=== PATIENT | female | born 1960 | race Caucasian/White ===

== ENCOUNTER → 2016-09-05 | Outpatient (REF) | payer OTHER ==
[~2016-09-05] MED LIST: /DULO30CA OR; /QUET10TA PO; ALBU17IN INH; ALPR1TAB3 OR; ALPR1TAB3 PO; AMBI5TAB OR; AMOX875T PO; ANAS1TAB PO; ARIM1TAB4 PO; ASTE0.15; BACT800T5 PO; BENA25CA2 PO; CETI10TA PO; CLAR5TAB7 PO; CLON1TAB OR; CLON1TAB PO; COMPAZINE; CYMB60CA3 PO; DICY1CAP8 PO; DIPH2.5T14 PO; DULO30CA PO; DULOXETINE PO; GLIM1TAB PO; GLIM2TAB PO; GLYB5TAB PO; GUAI1TAB PO; HYDR-3719 PO; HYDROCODONE APAP PO; HYOS0.1248 PO; KLON1TAB PO; LEVA750T PO; LEXA5TAB13 PO; LIDO5DIS36 TD; LISI-542 PO; LISI10TA4 OR; LISI10TA4 PO; LOMO2.5T PO; LYRI150C OR; LYRI150C PO; METF500T PO; METF500T4 PO; METH750T PO; METOCARBAMOL PO; MIRA3350 PO; MONT10TA2 PO; MUCI600T34 PO; MYLI40DR OR; NAPR500T81 OR; NAPR550T PO; NAPR550T3 PO; NAPRPOW4 PO; OMEP20TA7 OR; OMEP40CA2 PO; OXYB10TA PO; OXYC-517 PO; OXYC1TAB23 PO; OYSCTAB3 PO; PERC7.5T12 PO; PERCOCET PO; PRIL40CA PO; QUET1TAB8 PO; ROBA500T PO; SEROQUIL PO; SIMV20TA2 OR; SIMV20TA2 PO; SKEL-29 PO; TOLT1CAP PO; TYLE650T25 PO; VICO5TAB; VICODINES TAB OR; VIT D 2000 OR; VITA50003 PO; XANA1TAB2 OR; XANA1TAB2 PO; ZEST1TAB6 PO; ZOCO80TA PO; ZOLP10TA2 PO; [UNRECOGNIZED DRUG - CODE] PO; [UNRECOGNIZED DRUG - CODE] PO; [UNRECOGNIZED DRUG - OTHER] PO; [UNRECOGNIZED DRUG - REMARK] INJ
[2016-09-05 19:17] LABS: YEAST LIKE CELL URINE AUTO SMALL
[2016-09-05 19:23] LABS: MEAN CORPUSCULAR HEMOGLOBIN 23.5 pg (27.0-33.0); MEAN CORPUSCULAR HGB CONC 30.6 g/dl (32.0-36.5); RED CELL DISTRIBUTION WIDTH 15.6 % (11.5-14.5)
[2016-09-05 20:08] LABS: ALBUMIN 3.7 GM/DL (3.2-5.2); ALBUMIN/GLOBULIN RATIO 1.19 (1.00-1.93); ALKALINE PHOSPHATASE 80 U/L (45-117); ALT/SGPT 37 U/L (12-78); ANION GAP 11 MEQ/L (8-16); AST/SGOT 46 U/L (15-37); BILIRUBIN,TOTAL 0.2 MG/DL (0.2-1.0); BLOOD UREA NITROGEN 8 MG/DL (7-18); CALCIUM LEVEL 8.7 MG/DL (8.5-10.1); CARBON DIOXIDE LEVEL 25 MEQ/L (21-32); CHLORIDE LEVEL 105 MEQ/L (98-107); CREATININE FOR GFR 0.54 MG/DL (0.55-1.02); GLOMERULAR FILTRATION RATE > 60.0 (>51); GLUCOSE, FASTING 195 MG/DL (70-105); POTASSIUM SERUM 4.4 MEQ/L (3.5-5.1); SODIUM LEVEL 141 MEQ/L (136-145); TOTAL PROTEIN 6.8 GM/DL (6.4-8.2)
== END ==
LOC: M LAB REF 18:27
PROVIDERS: ATTEND Nurse Practitioner Family
DX: E11.9 Type 2 diabetes mellitus without complications (principal); R53.81 Other malaise; D72.829 Elevated white blood cell count, unspecified

== ENCOUNTER → 2016-09-18 | Outpatient (CLI) | payer OTHER ==
--- NOTE | 2016-09-19 07:28 | REP ---
RIGHT HIP SERIES: 09/18/2016. Clinical history: Back pain and right hip pain. Comparison: AP pelvis 10/22/2012. Findings: The two-view show the hip joint space preserved without narrowing. There is a tiny rim osteophyte at the acetabular roof. No sclerosis, subchondral cystic change in the acetabular roof nor evidence of AVN. No fracture or focal lesion in the hip, acetabulum, pubic rami or the adjacent right SI joint. Symphysis pubis intact. Impression: 1. Minimal degenerative change at the right hip without fracture, joint space narrowing, AVN or other acute finding. Signed by Jason Valenzuela MD 09/19/2016 04:23 P
--- NOTE | 2016-09-19 07:29 | REP ---
LUMBAR SPINE COMPLETE: 09/18/2016. Comparison: 01/26/2016. Clinical history: Back pain. Findings: Five view show the disc space at L4-5 and L5-S1 narrowed. Small marginal osteophytes. There is no spondylolysis or spondylolisthesis. Disc space at L2-3 and L3-4 narrowed less than those below. Discogenic endplate changes and marginal osteophytes at L1-2 present. Some minor anterior wedging of T12 is stable. Bilateral oblique views show facet arthropathy at L4-5 and L5-S1. AP view show pedicles, spinous and transverse processes intact. There are right upper quadrant surgical clips from prior cholecystectomy and there are coarse calcifications in the right upper quadrant outside of the renal shadow and paramedian. These are stable. Impression: 1. Degenerative disc changes diffusely throughout the lumbar and lower thoracic spine and facet arthritis greatest L4-5 and L5-S1. No compression deformity, spondylolysis or other acute finding. Signed by Jason Valenzuela MD 09/19/2016 04:24 P
--- NOTE | 2016-09-19 09:05 | REP ---
MR LUMBAR SPINE WITHOUT CONTRAST: HISTORY: Back pain. COMPARISON: 11/24/2015 Decreased signal intensity on T2-weighted images is present in the lumbar intervertebral discs. The discs are decreased in height. These findings are consistent with disc degeneration. A diffuse disc bulge is present at the L1-2 level. There is hypertrophy of the ligamenta flava and posterior articulating facets. These findings produce minimal central canal stenosis. The L1 nerves exit the neural foramina without compression. A diffuse disc bulge is present at the L2-3 level. There is hypertrophy of the ligamenta flava and posterior articulating facets. These findings produce minimal central canal stenosis. The L2 nerves exit the neural foramina without compression. A diffuse disc bulge is present at the L3-4 level. The previously noted disc protrusion is not seen. There is minimal compression of the thecal sac. There is hypertrophy of the posterior articulating facets. The L3 nerves exit the neural foramina without compression. A diffuse disc bulge and small right paracentral disc extrusion are present at the L4-5 level. There is inferior migration of disc material. There is minimal compression of the thecal sac and right L5 nerve as it exits the thecal sac and in the right L5 lateral recess. There is hypertrophy of the posterior articulating facets. The L4 nerves exit the neural foramina without compression. A diffuse disc bulge and small disc extrusion central and eccentric to the right are present at the L5-S1 level. There is minimal compression of the thecal sac and right S1 nerve as it exits the thecal sac. There is hypertrophy of the posterior articulating facets. There is compression of the right L5 nerve in the neural foramen. The left L5 nerve exits the neural foramen without compression. The conus medullaris is normal in appearance terminating at the level of the L1 vertebral body. Increased signal intensity on T2-weighted images is present in the inferior endplate of the L1 vertebral body. This represents degenerative change. IMPRESSION: 1. Minimal central canal stenosis at the L1-2 and L2-3 levels secondary to disc bulge ligamentous and facet hypertrophy. 2. Diffuse disc bulge at the L3-4 level with minimal thecal sac compression. The previously noted disc protrusion is not seen. 3. Diffuse disc bulge and small right paracentral disc extrusion at the L4-5 level with minimal compression of the thecal sac and right L5 nerve as it exits the thecal sac and in the right L5 lateral recess. 4. Diffuse disc bulge and small disc extrusion at the L5-S1 level with minimal compression of the thecal sac and right S1 nerve as it exits the thecal sac. There is compression of the right L5 nerve in the neural foramen. The right L5 nerve compression is a new finding. Signed by Tesfaye Peterson MD 09/19/2016 09:22 A
== END ==
LOC: M RAD 17:20
PROVIDERS: ATTEND Nurse Practitioner Family
DX: M54.30 Sciatica, unspecified side (principal); M25.559 Pain in unspecified hip

== ENCOUNTER → 2016-11-06 | Outpatient (REF) | payer OTHER ==
[2016-11-06 18:35] LABS: YEAST LIKE CELL URINE AUTO SMALL
== END ==
LOC: M SMT 16:55
PROVIDERS: ATTEND Urology
DX: N39.41 Urge incontinence (principal)

== ENCOUNTER → 2016-11-11 | Outpatient (REF) | payer OTHER, MEDICAID ==
[2016-11-11 13:20] LABS: ANION GAP 9 MEQ/L (8-16); BLOOD UREA NITROGEN 9 MG/DL (7-18); CARBON DIOXIDE LEVEL 28 MEQ/L (21-32); CHLORIDE LEVEL 101 MEQ/L (98-107); CREATININE FOR GFR 0.67 MG/DL (0.55-1.02); GLOMERULAR FILTRATION RATE > 60.0 (>51); GLUCOSE, FASTING 156 MG/DL (70-105); POTASSIUM SERUM 4.6 MEQ/L (3.5-5.1); SODIUM LEVEL 138 MEQ/L (136-145)
== END ==
LOC: M LAB REF 12:31
PROVIDERS: ATTEND Nurse Practitioner Family
DX: E11.9 Type 2 diabetes mellitus without complications (principal)

== ENCOUNTER → 2016-12-03 | Outpatient (REF) | payer OTHER | LOC: M LAB REF 17:02 | PROVIDERS: ATTEND Internal Medicine Medical Oncology | DX: C50.111 Malignant neoplasm of central portion of right female breast (principal) ==

== ENCOUNTER 2016-12-05 14:29 | Outpatient (RCR) | payer OTHER | END 2016-12-18 | LOC: M PT 14:29 | PROVIDERS: ATTEND Nurse Practitioner Family | DX: Z51.89 Encounter for other specified aftercare (principal); M54.5 Low back pain ==

== ENCOUNTER 2016-12-29 02:39 | Emergency (ER) | payer OTHER ==
[~2016-12-29] VITALS: Ht 167.6 cm; Wt 100.7 kg
[2016-12-29] MEDS ORDERED: LISI10TA4 PO (03:15)
[2016-12-29] MEDS ORDERED: CITA10TA5 PO (03:15)
[2016-12-29] MEDS ORDERED: ALOG25TA PO (03:16)
[2016-12-29] MEDS ORDERED: KETOROLAC TROMETHAMINE 10 MG TAB PO ONE (04:15)
[2016-12-29] MEDS ORDERED: OXYC1TAB23 PO (06:16)
[2016-12-29 06:23] VITALS: BP 106/62
--- NOTE | 2016-12-29 09:15 | REP ---
PA and lateral chest: Comparison is 07/10/2016. The lung plasencia are clear. There is no pneumothorax, hemothorax or pulmonary contusion. Cardiac size is normal. The sarwat, mediastinum, and bony thorax are unremarkable. Impression: Negative PA and lateral chest. Signed by Deven Pelletier MD 12/29/2016 09:07 A
--- NOTE | 2016-12-29 09:17 | REP ---
Right rib series and PA chest. Right ribs four views: There is no rib fracture or other rib abnormality. PA chest: There is no pneumothorax, hemothorax or pulmonary contusion. Lung plasencia are clear. Cardiac size is normal. The sarwat, mediastinum, and bony thorax are unremarkable. Impression: Negative PA chest. Signed by Deven Pelletier MD 12/29/2016 09:08 A
--- NOTE | 2016-12-29 09:17 | REP ---
Right shoulder three views: Mineralization and joint spaces are normal. There is no fracture or dislocation. There are no calcifications or foreign bodies. Impression: Negative right shoulder. Signed by Deven Peleltier MD 12/29/2016 09:09 A
== END 2016-12-29 06:27 | disposition home or self-care (01) ==
LOC: M ED 03:45
DX: S20.229A Contusion of unspecified back wall of thorax, initial encounter (principal); W08.XXXA Fall from other furniture, initial encounter; Y92.9 Unspecified place or not applicable; Y93.89 Activity, other specified; Y99.9 Unspecified external cause status; Z85.3 Personal history of malignant neoplasm of breast; Z92.3 Personal history of irradiation; Z92.21 Personal history of antineoplastic chemotherapy; E11.9 Type 2 diabetes mellitus without complications; I10 Essential (primary) hypertension; F41.9 Anxiety disorder, unspecified; F32.9 Major depressive disorder, single episode, unspecified; E78.5 Hyperlipidemia, unspecified; K21.9 Gastro-esophageal reflux disease without esophagitis; K58.9 Irritable bowel syndrome, unspecified; F17.200 Nicotine dependence, unspecified, uncomplicated; Z79.899 Other long term (current) drug therapy; Z88.8 Allergy status to other drugs, medicaments and biological substances

== ENCOUNTER 2017-01-02 13:45 | Outpatient (RCR) | payer OTHER ==
[~2017-01-02 13:45] MED LIST changes: +ALOG25TA PO; +CITA10TA5 PO; +GLYB1TAB67 PO; -GLYB5TAB PO; -LEVA750T PO; +LEVA750T7 PO; -LIDO5DIS36 TD; +LIDO5DIS41 TD; -MUCI600T34 PO; +MUCI600T37 PO; +NAPR550T22 PO; -NAPR550T3 PO; -SKEL-29 PO; +SKEL800T97 PO; +VITA1CAP40 PO; -VITA50003 PO
== END 2017-01-17 | disposition home or self-care (01) ==
LOC: M PT 13:45
PROVIDERS: ATTEND Nurse Practitioner Family
DX: Z51.89 Encounter for other specified aftercare (principal); M54.30 Sciatica, unspecified side

== ENCOUNTER → 2017-02-19 | Outpatient (REF) | payer OTHER ==
[~2017-02-19] MED LIST changes: +AMBI5TAB PO; +DOK100TA PO; +HYDR-643 PO; +MYRB50TA PO; +OXYC10TA12 PO; +REGL10TA6 PO; +SENE8.6T PO
[2017-02-19 20:16] LABS: ALBUMIN 3.6 GM/DL (3.2-5.2); ALBUMIN/GLOBULIN RATIO 1.16 (1.00-1.93); ALKALINE PHOSPHATASE 84 U/L (45-117); ALT/SGPT 28 U/L (12-78); ANION GAP 12 MEQ/L (8-16); AST/SGOT 24 U/L (15-37); BILIRUBIN,TOTAL 0.2 MG/DL (0.2-1.0); BLOOD UREA NITROGEN 7 MG/DL (7-18); CALCIUM LEVEL 9.1 MG/DL (8.5-10.1); CARBON DIOXIDE LEVEL 24 MEQ/L (21-32); CHLORIDE LEVEL 106 MEQ/L (98-107); CREATININE FOR GFR 0.65 MG/DL (0.55-1.02); GLOMERULAR FILTRATION RATE > 60.0 (>51); GLUCOSE, FASTING 186 MG/DL (70-105); POTASSIUM SERUM 4.5 MEQ/L (3.5-5.1); SODIUM LEVEL 142 MEQ/L (136-145); TOTAL PROTEIN 6.7 GM/DL (6.4-8.2)
== END ==
LOC: M LAB REF 16:31
PROVIDERS: ATTEND Nurse Practitioner Family
DX: E11.9 Type 2 diabetes mellitus without complications (principal)

== ENCOUNTER 2017-03-23 20:01 | Emergency (ER) | payer OTHER ==
[~2017-03-23] VITALS: Ht 167.6 cm; Wt 100.9 kg
[~2017-03-23 20:01] MED LIST changes: -AMBI5TAB PO; -DOK100TA PO; -HYDR-643 PO; -MYRB50TA PO; -OXYC10TA12 PO; -REGL10TA6 PO; -SENE8.6T PO
[2017-03-23] MEDS ORDERED: DOK100TA PO (20:30)
[2017-03-23] MEDS ORDERED: AMBI5TAB PO (20:30)
[2017-03-23] MEDS ORDERED: CETI10TA PO (20:30)
[2017-03-23] MEDS ORDERED: OXYC10TA12 PO (20:30)
[2017-03-23] MEDS ORDERED: MYRB50TA PO (20:30)
[2017-03-23] MEDS ORDERED: SENE8.6T PO (20:30)
[2017-03-23] MEDS ORDERED: LYRI150C PO (20:30)
[2017-03-23] MEDS ORDERED: HYDR-643 PO (20:30)
[2017-03-23] MEDS ORDERED: diphenhydrAMINE INJ 50MG/ML VIAL (J1200) IV STA (21:16)
[2017-03-23] MEDS ORDERED: LORazepam 2 MG/ML VIAL (J2060) IV STA (21:16)
[2017-03-23] MEDS ORDERED: NS 1,000 ML IV ONE (21:30)
[2017-03-23] MEDS ORDERED: METOCLOPRAMIDE INJ 10MG/2ML VIAL (J2765) IV ONE (21:30)
[2017-03-23 22:16] LABS: BASO # 0.1 K/mm3 (0.0-0.2); BASO % 1.1 % (0.0-1.0); EOS # 0.4 K/mm3 (0.0-0.50); EOS % 3.9 % (0.0-3.0); LARGE UNSTAINED CELL # 0.2 K/mm3 (0.0-0.4); LARGE UNSTAINED CELL % 2.3 % (0.0-4.0); LYMPH % 40.7 % (24.0-44.0); MEAN CORPUSCULAR HEMOGLOBIN 25.9 pg (27.0-33.0); MEAN CORPUSCULAR HGB CONC 33.2 g/dl (32.0-36.5); MONO # 0.4 K/mm3 (0.0-0.8); MONO % 4.4 % (0.0-5.0); NEUTROPHILS # 4.7 K/mm3 (1.8-7.7); NEUTROPHILS % 47.6 % (36.0-66.0); PLATELET COUNT, AUTOMATED 386 k/mm3 (150-450); RED CELL DISTRIBUTION WIDTH 16.4 % (11.5-14.5); WHITE BLOOD COUNT 9.8 K/mm3 (4.0-10.0)
[2017-03-23 22:29] LABS: METHADONE URINE NEGATIVE (NEGATIVE)
[2017-03-23 22:35] LABS: ALBUMIN 3.8 GM/DL (3.2-5.2); ALKALINE PHOSPHATASE 89 U/L (45-117); ALT/SGPT 50 U/L (12-78); ANION GAP 9 MEQ/L (8-16); AST/SGOT 39 U/L (15-37); BILIRUBIN,DIRECT < 0.1 MG/DL (0.0-0.2); BILIRUBIN,TOTAL 0.2 MG/DL (0.2-1.0); BLOOD UREA NITROGEN 4 MG/DL (7-18); CALCIUM LEVEL 8.8 MG/DL (8.5-10.1); CARBON DIOXIDE LEVEL 28 MEQ/L (21-32); CHLORIDE LEVEL 103 MEQ/L (98-107); CREATININE FOR GFR 0.67 MG/DL (0.55-1.02); GLOMERULAR FILTRATION RATE > 60.0 (>51); GLUCOSE, FASTING 135 MG/DL (70-105); POTASSIUM SERUM 4.1 MEQ/L (3.5-5.1); SODIUM LEVEL 140 MEQ/L (136-145); TOTAL PROTEIN 7.6 GM/DL (6.4-8.2)
--- NOTE | 2017-03-23 23:20 | REPUSA ---
CT of the head Clinical history: altered mental status. Technique: Multiple axial CT images were obtained through the head without administration of contrast . Findings: The ventricles and sulci are symmetric bilaterally. There is no evidence of acute hemorrhag e or infarct. There is no midline shift, mass effect, or extra-axial fluid collection. The osseous st ructures are unremarkable. The visualized paranasal sinuses and mastoid air cells are clear. Impression: Negative study.
[2017-03-23] MEDS ORDERED: REGL10TA6 PO (23:22)
[2017-03-23 23:38] VITALS: BP 140/76
--- NOTE | 2017-03-24 09:21 | REP ---
Clinical: Chest pain and altered mental status . Comparison: 12/29/2016 . Technique: PA and lateral. Findings: The mediastinum and cardiac silhouette are normal. The lung plasencia are clear and without acute consolidation, effusion, or pneumothorax. The skeletal structures are intact and normal. Impression: 1. No acute cardiopulmonary process. Signed by Karan Monroy MD 03/24/2017 09:13 A
--- NOTE | 2017-03-25 20:44 | ECGEPIP ---
Stationary ECG Study [facility] - ED Test Date: 2017-03-23 Pat Name: CASSANDRA ANAYA Department: Room: - Gender: F Manager Administration: tahira : 1960 Requested By: DORI NORWOOD Order Number: [id number] Reading MD: Nelida Oliver Measurements Intervals [place] Rate: 86 P: 31 NH: 163 QRS: 0 QRSD: 88 T: 26 QT: 372 QTc: 445 Interpretive Statements SINUS RHYTHM SEPTAL MYOCARDIAL INFARCTION, PROBABLY OLD ?OLD INFERIOR INFARCT NSTTW ABNORMALITY DECREASED RATE 07/10/16 Electronically Signed On 03-25-2017 20:44:40 EDT by Nelida Oliver
== END 2017-03-23 23:53 | disposition home or self-care (01) ==
LOC: M ED 20:01
DX: F41.9 Anxiety disorder, unspecified (principal); G62.9 Polyneuropathy, unspecified; M79.7 Fibromyalgia; J44.9 Chronic obstructive pulmonary disease, unspecified; F17.200 Nicotine dependence, unspecified, uncomplicated; Z90.49 Acquired absence of other specified parts of digestive tract; Z79.899 Other long term (current) drug therapy; Z88.8 Allergy status to other drugs, medicaments and biological substances
CPT/HCPCS: 36415; 70450; 71020; 80048; 80076; 80307; 80320; 80329; 81001; 82550; 82553; 84443; 85025; 93000; 93041; 94760; 96374; 96375; 99285; J1200; J2060; J2765

== ENCOUNTER → 2017-06-20 | Outpatient (REF) | payer OTHER ==
[~2017-06-20] MED LIST changes: +AMBI5TAB PO; +DOK100TA PO; +HYDR-643 PO; +MYRB50TA PO; +OXYC10TA12 PO; +REGL10TA6 PO; +SENE8.6T PO
[2017-06-20 12:44] LABS: MEAN CORPUSCULAR HEMOGLOBIN 23.9 pg (27.0-33.0); MEAN CORPUSCULAR HGB CONC 30.8 g/dl (32.0-36.5); MEAN CORPUSCULAR VOLUME 77.5 fl (80.0-96.0); PLATELET COUNT, AUTOMATED 424 10^3/uL (150-450); RED CELL DISTRIBUTION WIDTH 16.8 % (11.5-14.5); WHITE BLOOD COUNT 11.4 10^3/uL (4.0-10.0)
== END ==
LOC: M LABDRAW1 10:14
PROVIDERS: ATTEND Family Medicine
DX: R61 Generalized hyperhidrosis (principal)

== ENCOUNTER 2017-07-20 17:55 | Emergency (ER) | payer OTHER ==
[2017-07-20 18:30] LABS: APPEARANCE, URINE MANUAL CLEAR (CLEAR); COLOR, URINE MANUAL ORANGE (YELLOW); PH,URINE MAN OBSCURED UNITS (5.0 - 7.0); PROTEIN, URINE MANUAL OBSCURED mg/dL (NEGATIVE); SPECIFIC GRAVITY,URINE MANUAL 1.025 (1.002-1.035)
[2017-07-20 18:31] LABS: BILIRUBIN, URINE MANUAL OBSCURED (NEGATIVE); BLOOD URINE MANUAL OBSCURED (NEGATIVE); GLUCOSE, URINE (UA) MANUAL OBSCURED mg/dL (NEGATIVE); KETONE, URINE MANUAL OBSCURED mg/dL (NEGATIVE); LEUKOCYTE ESTERASE, URINE MAN OBSCURED (NEGATIVE); MICROSCOPIC INDICATED? MAN YES (NO); NITRITE, URINE MANUAL OBSCURED (NEGATIVE); UROBILINOGEN, URINE MANUAL OBSCURED mg/dl (NORMAL)
[2017-07-20 18:43] LABS: BACTERIA, URINE SMALL AMOUNT; HYALINE CAST, URINE NONE SEEN /lpf (0-1); MICROSCOPIC EXAM PERFORMED; MUCUS, URINE SMALL AMOUNT (NEGATIVE); SQUAMOUS EPITHELIAL CELL URINE LARGE AMOUNT /hpf (SMALL AMT); WBC, URINE 20-30 /hpf (0-3)
[2017-07-20] MEDS: NS 1,000 ML IV (21:45)
[2017-07-20] MEDS: PHENAZOPYRIDINE 100 MG TAB PO (22:59)
[2017-07-20] MEDS: KETOROLAC 30 MG/ML VIAL (J1885) IV (22:59)
[2017-07-20 23:07] LABS: HEMATOCRIT 41.2 % (36.0-47.0); HEMOGLOBIN 12.8 g/dl (12.0-16.0); MEAN CORPUSCULAR HEMOGLOBIN 23.5 pg (27.0-33.0); MEAN CORPUSCULAR HGB CONC 31.1 g/dl (32.0-36.5); MEAN CORPUSCULAR VOLUME 75.6 fl (80.0-96.0); PLATELET COUNT, AUTOMATED 506 10^3/uL (150-450); RED BLOOD COUNT 5.45 10^6/uL (4.00-5.40); RED CELL DISTRIBUTION WIDTH 17.4 % (11.5-14.5)
[2017-07-20 23:14] LABS: ADD MANUAL DIFFER YES; DIFF SLIDE NUMBER 166; POSITIVE DIFF POS FLAG; WHITE BLOOD COUNT 14.9 10^3/uL (4.0-10.0)
[2017-07-20 23:18] LABS: ALBUMIN 3.8 GM/DL (3.2-5.2); ALBUMIN/GLOBULIN RATIO 0.95 (1.00-1.93); ALKALINE PHOSPHATASE 87 U/L (45-117); ALT/SGPT 23 U/L (12-78); ANION GAP 4 MEQ/L (8-16); AST/SGOT 21 U/L (7-37); BILIRUBIN,DIRECT < 0.1 MG/DL (0.0-0.2); BILIRUBIN,TOTAL 0.2 MG/DL (0.2-1.0); BLOOD UREA NITROGEN 8 MG/DL (7-18); CALCIUM LEVEL 9.2 MG/DL (8.5-10.1); CARBON DIOXIDE LEVEL 33 MEQ/L (21-32); CHLORIDE LEVEL 100 MEQ/L (98-107); CREATININE FOR GFR 0.64 MG/DL (0.55-1.02); GLOMERULAR FILTRATION RATE > 60.0 (>51); GLUCOSE, FASTING 112 MG/DL (70-105); POTASSIUM SERUM 4.1 MEQ/L (3.5-5.1); SODIUM LEVEL 137 MEQ/L (136-145); TOTAL PROTEIN 7.8 GM/DL (6.4-8.2)
[2017-07-20 23:18] LABS: LACTIC ACID SEPSIS PROTOCOL 0.9 MMOL/L (0.4-2.0)
[2017-07-20] MEDS: CEFTRIAXONE SOD 1 GM in APPROPRIATE DILUENT 1 EA IV (23:30)
[2017-07-20 23:40] LABS: ATYPICAL LYMPH 5 % (0-5); EOSINOPHILS 7 % (0-5); LYMPHOCYTES 35 % (16-52); MONOCYTES 3 % (0-8); NEUTROPHILS 50 % (35-75)
[2017-07-20 23:41] LABS: ANISOCYTOSIS 1+; HYPOCHROMASIA 1+; MICROCYTOSIS 2+; PLATELET ESTIMATE NORMAL (NORMAL)
== END 2017-07-21 00:33 | disposition home or self-care (01) ==
LOC: M ED 07-21 00:33
DX: N30.00 Acute cystitis without hematuria (principal); R16.0 Hepatomegaly, not elsewhere classified; N20.0 Calculus of kidney; I10 Essential (primary) hypertension; E78.00 Pure hypercholesterolemia, unspecified; G89.29 Other chronic pain; K58.9 Irritable bowel syndrome, unspecified; K21.9 Gastro-esophageal reflux disease without esophagitis; E11.9 Type 2 diabetes mellitus without complications; M79.7 Fibromyalgia; M54.9 Dorsalgia, unspecified; F41.9 Anxiety disorder, unspecified; F32.9 Major depressive disorder, single episode, unspecified; F17.200 Nicotine dependence, unspecified, uncomplicated; Z88.8 Allergy status to other drugs, medicaments and biological substances; Z79.899 Other long term (current) drug therapy; Z87.442 Personal history of urinary calculi
CPT/HCPCS: J1885

== ENCOUNTER → 2017-12-01 | Outpatient (REF) | payer OTHER, MEDICAID ==
[2017-12-02 11:19] LABS: CA15-3 ANTIGEN 3.2 U/ML (<32.4)
== END ==
LOC: M LAB REF 16:46
DX: C50.919 Malignant neoplasm of unspecified site of unspecified female breast (principal)
CPT/HCPCS: 86300

== ENCOUNTER → 2017-12-17 | Outpatient (CLI) | payer OTHER | LOC: M WHC 14:00 | DX: Z78.0 Asymptomatic menopausal state (principal); Z12.31 Encounter for screening mammogram for malignant neoplasm of breast; Z85.3 Personal history of malignant neoplasm of breast | CPT/HCPCS: 77067 ==

== ENCOUNTER 2019-04-25 17:15 | Emergency (ER) | payer OTHER ==
[~2019-04-25] VITALS: Ht 167.6 cm; Wt 106.1 kg
[~2019-04-25 17:15] MED LIST changes: -/DULO30CA OR; -/QUET10TA PO; +ALBU8.5H IH; -ANAS1TAB PO; +ANAS1TAB2 PO; +ARIM1TAB5 PO; +BENT10CA PO; +CEFD1CAP8 PO; -CLON1TAB PO; +CLON1TAB8 PO; +CYMB1CAP5 OR; +DOXY-350 PO; -DULO30CA PO; +DULO30CA9 PO; +ESCI5TAB PO; -GLIM2TAB PO; +GLIM2TAB2 PO; -GLYB1TAB67 PO; +GLYB5TAB12 PO; +METF-791 PO; -METF500T4 PO; +METH1TAB40 PO; +NAPR-832 PO; +NAPR-885 PO; -NAPR550T22 PO; -OMEP40CA2 PO; +OMEP40CA97 PO; -OXYB10TA PO; +OXYB10TA2 PO; +OXYC15TA76 PO; +PROZ40CA PO; +PYRI1TAB5 PO; -SENE8.6T PO; +SENN1TAB38 PO; +SERO1TAB PO; -TOLT1CAP PO; +TOLT4CAP3 PO; -VITA1CAP40 PO; +VITA50005 PO; -[UNRECOGNIZED DRUG - CODE] PO
[2019-04-25] MEDS ORDERED: GI COCKTAIL 50ML BTL(HYOSCYAMINE/MAALOX/LIDOCAINE VISCOUS)(1:3:1) PO ONE (18:15)
[2019-04-25 18:16] LABS: HEMATOCRIT 34.5 % (36.0-47.0); HEMOGLOBIN 10.1 g/dl (12.0-15.5); MEAN CORPUSCULAR HEMOGLOBIN 19.9 pg (27.0-33.0); MEAN CORPUSCULAR HGB CONC 29.3 g/dl (32.0-36.5); PLATELET COUNT, AUTOMATED 415 10^3/uL (150-450); RED BLOOD COUNT 5.07 10^6/uL (4.00-5.40); WHITE BLOOD COUNT 12.6 10^3/uL (4.0-10.0)
[2019-04-25] MEDS ORDERED: ISOVUE-370 76% 100ML VIAL (Q9967) As Ordered ONE (18:32)
[2019-04-25 18:50] LABS: ALBUMIN 3.5 GM/DL (3.2-5.2); ALT/SGPT 34 U/L (12-78); BILIRUBIN,DIRECT 0.1 MG/DL (0.0-0.2); BILIRUBIN,TOTAL 0.3 MG/DL (0.2-1.0); BLOOD UREA NITROGEN 4 MG/DL (7-18); CALCIUM LEVEL 8.9 MG/DL (8.5-10.1); CARBON DIOXIDE LEVEL 30 MEQ/L (21-32); CHLORIDE LEVEL 99 MEQ/L (98-107); CK-MB VALUE MASS < 1.0 NG/ML (<3.6); CPK CREATINE PHOSPHOKINASE 48 U/L (26-192); CREATININE FOR GFR 0.63 MG/DL (0.55-1.30); GLOMERULAR FILTRATION RATE > 60.0 (>51); GLUCOSE, FASTING 166 MG/DL (70-100); LIPASE 162 U/L (73-393); MB/CK RELATIVE INDEX 2.08 (< OR =4); NT-PRO BNP 224 PG/ML (<125); POTASSIUM SERUM 3.9 MEQ/L (3.5-5.1); SODIUM LEVEL 136 MEQ/L (136-145); TOTAL PROTEIN 7.1 GM/DL (6.4-8.2); TROPONIN I < 0.02 NG/ML (< 0.10)
[2019-04-25 19:09] LABS: ANISOCYTOSIS 2+; ATYPICAL LYMPH 6 % (0-5); EOSINOPHILS 5 % (0-3); LYMPHOCYTES 35 % (16-44); MONOCYTES 6 % (0-5); NEUTROPHILS 48 % (28-66); OVALOCYTES 1+; PLATELET ESTIMATE INCREASED (NORMAL); POIKILOCYTOSIS 1+
[2019-04-25 19:10] LABS: GIANT PLATELETS 1+; MICROCYTOSIS 3+; PLATELET CLUMPS SMALL AMT; POLYCHROMASIA 1+
[2019-04-25 19:11] LABS: SPHEROCYTES 1+
--- NOTE | 2019-04-25 20:02 | REPVR ---
PROCEDURE INFORMATION: Exam: CT Angiography Chest With Contrast Exam date and time: 04/25/2019 7:29 PM Clinical history: 59 years old, female; Chest pain; Additional info: Severe chest/abd pain R/O dissection TECHNIQUE: Imaging protocol: Computed tomographic angiography of the chest with intravenous contrast. 3D rendering: MIP reconstructed images were created and reviewed. Radiation optimization: All CT scans at this facility use at least one of these dose optimization techniques: automated exposure control; mA and/or kV adjustment per patient size (includes targeted exams where dose is matched to clinical indication); or iterative reconstruction. Contrast material: ISOVUE 370; Contrast volume: 100 ml; Contrast route: IV; COMPARISON: CT ANGIO CHEST 09/06/2015 6:30 PM FINDINGS: Pulmonary arteries: There are no pulmonary emboli. Aorta: There is no aortic dissection or aneurysm. Lungs: Unremarkable. No consolidation. No masses. Pleural space: Unremarkable. No pneumothorax. No pleural effusion. Heart: Unremarkable. No cardiomegaly. No pericardial effusion. Liver: There is a diffuse decrease in hepatic parenchymal density, consistent with fatty infiltration. Mild lobular contour of the liver with a prominent left and caudate lobes, findings which may indicate the presence of cirrhosis which should be correlated clinically. Gallbladder and bile ducts: Cholecystectomy. Lymph nodes: Mildly prominent right suprahilar lymph node measures 2.1 cm. Bones/joints: The spine demonstrates mild degenerative changes. Soft tissues: Unremarkable. IMPRESSION: 1. There is no aortic dissection or aneurysm. 2. There are no pulmonary emboli. 3. No acute pulmonary parenchymal abnormalities. Electronically signed by: Rolo Mejia On 04/25/2019 20:01:33 PM
--- NOTE | 2019-04-25 20:08 | REPVR ---
PROCEDURE INFORMATION: Exam: CT Angiography Abdomen and Pelvis With Contrast Exam date and time: 04/25/2019 7:29 PM Clinical history: 59 years old, female; Abdominal pain; Generalized; Additional info: Severe chest/abd pain R/O dissection TECHNIQUE: Imaging protocol: Computed tomographic angiography of the abdomen and pelvis with intravenous contrast material. 3D rendering: MIP reconstructed images were created and reviewed. Radiation optimization: All CT scans at this facility use at least one of these dose optimization techniques: automated exposure control; mA and/or kV adjustment per patient size (includes targeted exams where dose is matched to clinical indication); or iterative reconstruction. Contrast material: ISOVUE 370; Contrast volume: 100 ml; Contrast route: IV; COMPARISON: CT ABD PELVIS W/O CONTRAST 07/20/2017 9:57 PM FINDINGS: VASCULATURE: Aorta: No aortic aneurysm. No aortic dissection. Celiac trunk and mesenteric arteries: No occlusion or significant stenosis. Renal arteries: No occlusion or significant stenosis. Right iliac arteries: No occlusion or significant stenosis. Left iliac arteries: No occlusion or significant stenosis. ABDOMEN: Liver: There is a diffuse decrease in hepatic parenchymal density, consistent with fatty infiltration. Examination of the liver demonstrates a lobular surface contour, and enlargement of the left and caudate lobes, findings consistent with cirrhosis. Gallbladder and bile ducts: There has been a cholecystectomy. Pancreas: Unremarkable. No mass. No ductal dilation. Spleen: Unremarkable. No splenomegaly. Adrenals: Unremarkable. No mass. Kidneys and ureters: Punctate nonobstructive calculi left kidney. Stomach and bowel: Mildly boggy appearance of the colon. Clinical correlation to exclude colitis suggested. Appendix: No evidence of appendicitis. PELVIS: Bladder: There is thickening of the bladder wall with perivesicular inflammatory changes consistent with acute cystitis. Reproductive: Unremarkable as visualized. ABDOMEN and PELVIS: Intraperitoneal space: Unremarkable. No free air. No significant fluid collection. Bones/joints: The spine demonstrates mild degenerative changes. Moderate central spinal stenosis at L2-3, L3-4, L4-5. Soft tissues: Small left inguinal hernia. Lymph nodes: Peripancreatic lymphadenopathy measures up to 12 mm. Calcified perigastric lymph node demonstrated as well. IMPRESSION: 1. There is a diffuse decrease in hepatic parenchymal density, consistent with fatty infiltration. 2. Examination of the liver demonstrates a lobular surface contour, and enlargement of the left and caudate lobes, findings consistent with cirrhosis. 3. There has been a cholecystectomy. 4. There is thickening of the bladder wall with perivesicular inflammatory changes consistent with acute cystitis. 5. Mildly boggy appearance of the colon. Clinical correlation to exclude colitis suggested. 6. No evidence of aortic dissection. No significant vascular abnormalities demonstrated. Electronically signed by: Rolo Mejia On 04/25/2019 20:07:29 PM
--- NOTE | 2019-04-25 20:34 | ECGEPIP ---
[facility] - ED Test Date: 2019-04-25 Pat Name: CASSANDRA ANAYA Department: Room: - Gender: Female Membership Solicitor: sb : 1960 Requested By: Nelida Oliver Order Number: [id number] Reading MD: Nelida Oliver Measurements Intervals [place] Rate: 84 P: 56 UT: 172 QRS: 23 QRSD: 93 T: 50 QT: 389 QTc: 461 Interpretive Statements SINUS RHYTHM ANTEROSEPTAL MYOCARDIAL INFARCTION, OF INDETERMINATE AGE NSTTW abnormalities Electronically Signed on 04-25-2019 20:34:20 EDT by Nelida Oliver
[2019-04-25] MEDS ORDERED: CIPROFLOXACIN 400 MG in IV 1 EA IV ONE (21:45)
[2019-04-25] MEDS ORDERED: PHENAZOPYRIDINE 100 MG TAB PO ONE (21:45)
[2019-04-25 23:00] VITALS: BP 141/89
[2019-04-26 00:40] LABS: CK-MB VALUE MASS < 1.0 NG/ML (<3.6); CPK CREATINE PHOSPHOKINASE 49 U/L (26-192); MB/CK RELATIVE INDEX 2.04 (< OR =4); TROPONIN I < 0.02 NG/ML (< 0.10)
[2019-04-26] MEDS ORDERED: PYRI1TAB5 PO (00:51)
[2019-04-26] MEDS ORDERED: CIPR-249 PO (00:51)
--- NOTE | 2019-04-26 07:51 | REP ---
Portable chest, 05:45 p.m., single AP view with the patient upright: Comparison is the PA and lateral chest dated 03/23/2017. The lung plasencia are clear. The cardiac size is normal. The sarwat, mediastinum, and skeletal structures are unremarkable. Impression: Negative portable chest. There is no interval change. Electronically Signed by Deven Pelletier MD 04/26/2019 07:42 A
--- NOTE | 2019-04-27 00:29 | ECGEPIP ---
[facility] - ED Test Date: 2019-04-26 Pat Name: CASSANDRA ANAYA Department: Room: - Gender: Female Sap Data Architect: nikole : 1960 Requested By: FARHAN Headley Order Number: [id number] Reading MD: Duarte Stover Measurements Intervals [place] Rate: 87 P: 42 RI: 182 QRS: 0 QRSD: 86 T: 19 QT: 377 QTc: 454 Interpretive Statements SINUS RHYTHM ANTEROSEPTAL MYOCARDIAL INFARCTION, PROBABLY OLD Nonspecific ST-T wave abnormalities Similar to tracing done 04-25-19 Electronically Signed on 04-27-2019 0:28:45 EDT by Duarte Stover
== END 2019-04-26 00:57 | disposition home or self-care (01) ==
LOC: M ED 17:15
DX: N30.00 Acute cystitis without hematuria (principal); E11.9 Type 2 diabetes mellitus without complications; I10 Essential (primary) hypertension; E78.5 Hyperlipidemia, unspecified; M79.7 Fibromyalgia; K58.9 Irritable bowel syndrome, unspecified; Z85.3 Personal history of malignant neoplasm of breast; F17.200 Nicotine dependence, unspecified, uncomplicated; Z82.49 Family history of ischemic heart disease and other diseases of the circulatory system; Z90.13 Acquired absence of bilateral breasts and nipples; Z79.899 Other long term (current) drug therapy; Z88.8 Allergy status to other drugs, medicaments and biological substances
CPT/HCPCS: 71045; 71275; 74174; 80047; 80048; 80076; 81001; 82550; 82553; 83690; 83880; 84443; 85025; 87040; 87086; 93005; 93041; 94760; 96365; 99285; J0744; Q9967

== ENCOUNTER 2019-07-06 08:01 | Inpatient (IN) | payer OTHER ==
[~2019-07-06] VITALS: Ht 167.6 cm; Wt 102.3 kg
[~2019-07-06 08:01] MED LIST changes: -ALBU8.5H IH; +ALBU8.5H INH; +CIPR-249 PO; -SIMV20TA2 PO; +SIMV20TA22 PO
--- NOTE | 2019-07-06 08:24 | REP ---
Head CT without contrast: History: CVA. Comparison study: March 23, 2017. CT findings: Bone window settings demonstrate an intact bony calvarium. There is no evidence of skull fracture or incidental bony calvarial lesion. The visualized paranasal sinuses appear clear. No intraorbital abnormality is seen. On soft tissue window setting images; the lateral, third, and fourth ventricles are normal in size and position. Ratliff-white differentiation pattern is normal above and below the tentorium. There are is no evidence of intracranial hemorrhage. No mass, edema, infarction, or midline shift is seen. No extra-axial fluid collection is appreciated. Impression: Negative noncontrast head CT. Electronically Signed by Felix Nelson MD 07/06/2019 08:22 A
[2019-07-06 08:33] VITALS: BP 124/56
[2019-07-06] MEDS ORDERED: LORazepam 2 MG/ML VIAL (J2060) IV STA (08:45)
[2019-07-06 08:48] LABS: BASO # 0.1 10^3/uL (0.0-0.2); BASO % 0.8 % (0.0-1.0); EOS # 0.6 10^3/uL (0.0-0.5); EOS % 5.3 % (0.0-3.0); HEMATOCRIT 35.9 % (36.0-47.0); HEMOGLOBIN 10.5 g/dl (12.0-15.5); LYMPH # 3.7 10^3/uL (1.5-5.0); MEAN CORPUSCULAR HEMOGLOBIN 20.3 pg (27.0-33.0); MEAN CORPUSCULAR HGB CONC 29.2 g/dl (32.0-36.5); MEAN CORPUSCULAR VOLUME 69.3 fl (80.0-96.0); MONO # 0.7 10^3/uL (0.0-0.8); MONO % 6.6 % (0.0-5.0); PLATELET COUNT, AUTOMATED 422 10^3/uL (150-450); RED BLOOD COUNT 5.18 10^6/uL (4.00-5.40); WHITE BLOOD COUNT 11.1 10^3/uL (4.0-10.0)
[2019-07-06 08:56] LABS: INR 0.93; PROTHROMBIN TIME 12.1 SECONDS (11.8-14.0)
--- NOTE | 2019-07-06 09:16 | REP ---
CHEST, SINGLE VIEW: There is no evidence of acute infiltrate. No pleural effusion is seen. The heart is normal in size. The mediastinal silhouette is unremarkable. The visualized osseous structures are intact. IMPRESSION: No acute pulmonary disease. Electronically Signed by Deven Ratliff MD 07/06/2019 04:00 P
[2019-07-06 09:20] LABS: CK-MB VALUE MASS < 1.0 NG/ML (<3.6); CPK CREATINE PHOSPHOKINASE 60 U/L (26-192); MB/CK RELATIVE INDEX 1.67 (< OR =4); TROPONIN I < 0.02 NG/ML (< 0.10)
[2019-07-06] MEDS ORDERED: QUET200T2 PO (11:57)
[2019-07-06] MEDS ORDERED: FLUO20CA20 PO (11:57)
[2019-07-06] MEDS ORDERED: MUCI600T31 PO (11:57)
[2019-07-06] MEDS ORDERED: FLON1SPR NARES (11:57)
[2019-07-06] MEDS ORDERED: NAPR500T6 PO (11:57)
[2019-07-06] MEDS ORDERED: CLON0.1D3 TOP (11:57)
[2019-07-06] MEDS ORDERED: AZEL0.055 NARES (11:57)
[2019-07-06] MEDS ORDERED: DULO60CA35 PO (11:57)
[2019-07-06] MEDS ORDERED: DICY20TA11 PO (11:57)
[2019-07-06] MEDS ORDERED: LOMO2.5T PO (11:57)
[2019-07-06] MEDS ORDERED: METO10TA2 PO (11:57)
--- NOTE | 2019-07-06 12:15 | REP ---
Intracranial MRA: 07/06/2019. Indication: Stroke. Comparison: None. Technique: New 3-D [id number] imaging of the intracranial vessels were performed with rotational 3-D reconstructions provided. Findings: There is no intracranial high-grade stenosis, vessel occlusion, aneurysm or AVM. Diminutive right A1 segment is noted likely on a congenital basis. The right vertebral artery is dominant. Impression: No intracranial high-grade stenosis or vessel occlusion. Electronically Signed by Bernabe Mayer DO 07/06/2019 10:44 A
--- NOTE | 2019-07-06 12:15 | REP ---
MRI brain: 07/06/2019. Indication: Stroke. Comparison: 12/24/2011. Technique: Multiplanar short and long TR sequences of the brain were performed without IV Gadolinium. Findings: Week restricted diffusion is suspected within the posterior right frontal lobe without mass effect. There is no hydrocephalus or significant intracranial hemorrhage. There are a few small foci of elevated CT signal scattered throughout the white matter of the cerebral hemispheres. The large intracranial flow voids are unremarkable. The midline structures, and craniocervical junction are unremarkable as well. Impression: Suspected acute posterior right frontal lobe/MCA infarction without mass effect or hemorrhage. Please correlate clinically. 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 Electronically Signed by Bernabe Mayer DO 07/06/2019 10:35 A
[2019-07-06] MEDS ORDERED: ASPIRIN 81 MG CHEW TABLET PO ONE (12:45)
[2019-07-06] MEDS ORDERED: ALBUTEROL 90 MCG/ACT 8GM HFA INHALER INH PRN (12:45)
[2019-07-06] MEDS ORDERED: GLUCOSE 4 GM CHEW TABLET PO PRN (12:45)
[2019-07-06] MEDS ORDERED: GLUCAGON FOR INJ 1 MG VIAL (J1610) SC PRN (12:45)
[2019-07-06] MEDS ORDERED: DEXTROSE 50% 50 ML SYRINGE IV PRN (12:45)
[2019-07-06] MEDS ORDERED: FLUoxetine 20 MG CAP PO SCH (13:00)
[2019-07-06 13:10] LABS: CHOLESTEROL LEVEL 153 MG/DL (<200); CHOLESTEROL RISK RATIO 4.636 (<5); HDL CHOLESTEROL 33 MG/DL (>40); LDL CHOLESTEROL 62 MG/DL (<100); NON-HDL-C 120 MG/DL; TRIGLYCERIDES LEVEL 290 MG/DL (<150)
[2019-07-06 14:00] VITALS: BP 142/67
--- NOTE | 2019-07-06 14:12 | HPEPDOC ---
[facility] Medical History & Physical Date of Admission Jul 06, 2019 Date of Service: Jul 06, 2019 History and Physical REASON FOR ADMISSION: Facial numbness on the left side along with dysarthria but started to wear HISTORY OF PRESENT ILLNESS: Patient is a 56-year-old female with history of tobacco use, arthritis, history of breast cancer, diabetes, fibromyalgia, gastroesophageal reflux disease, hypertension, hyperlipidemia, presented to the emergency room complaining of numbness on the left side of the face which star mo at 2 AM when she got up and along with that, she started noticing that she was not been able to speak properly and was not making proper words. She states that she was trying to drink water, but it was coming out from the left side of her mouth. That is the reason she came to the ER and in the ER she was found to have an acute frontoparietal stroke on the MRI. The CT scan of the head was negative. By the time she came to the ER, she was already out of the time frame for TPA and was just given aspirin. Currently the patient denies any fevers, any tinnitus, any chills. Patient denies any headaches, any loss of vision or any changes in vision. The patient denies any diarrhea. The patient denies any chest pain, any palpitations. The patient denies any shortness of breath, any cough. The patient denies any travel outside the country. Patient denies any trauma. REVIEW OF SYSTEMS: 12-point review of system was obtained all which was negative except for those mentioned above. PAST MEDICAL HISTORY: Significant for anxiety, arthritis, breast cancer, diabetes, and degenerative disc disease, fibromyalgia, gastroesophageal reflux disease (GERD), hyperlipidemia, hypertension, irritable bowel syndrome (IBS), incontinence, and history of renal stone. PAST SURGICAL HISTORY: Significant for cholecystectomy, hysterectomy, left breast mastectomy. SOCIAL HISTORY: Patient smokes 12 cigarettes a day for the past 8 years. Drinks occasionally. Lives at home with her and two grandkids. FAMILY HISTORY: Noncontributory. ALLERGIES: To FLEXERIL, makes her depressed. HOME MEDICATIONS: Reviewed and reconciled. PHYSICAL EXAMINATION: Vital signs : See below HEENT: Pupils equal round react to light and accommodation. Neck: Supple. No jugular venous distention (JVD). Lungs: Diminished breath sounds in the left lower field. No wheezing, no rhonchi, no rales Cardiac: Regular. No murmurs appreciated. No rubs or gallops. Abdomen: Soft, nontender, nondistended. Extremities: No clubbing, cyanosis or edema. Neurologic: She is alert, oriented to time, place and person. There is left- sided facial droop with loss of nasolabial fold. The tongue is deviated to the left side on protrusion. The patient is slightly dysarthric as well. Labs reviewed ASSESSMENT AND PLAN: This is a 59-year-old female with past medical history of diabetes, breast cancer status post left mastectomy, comes to the hospital because of left-sided facial numbness and dysarthria and was found to have the frontoparietal stroke and currently being admitted for that 1. Right frontoparietal CVA. The patient was already out of the time frame for TPA and was given only aspirin in the ER. The patient will continued on 81 mg of aspirin and 80 mg of simvastatin, which is a home dose will be continued. MRA has been negative. We will do carotid Dopplers. Will do 2-D echo along with t hat. EKG will be done to rule out any A. fib. She'll be kept on telemetry monitoring. TSH, A1c and lipids are already ordered. Speech Therapy, PT, OT consult. Fall precautions. We will start diet once she clears speech and swallow. 2. History of diabetes. Mellitus. 2. She is on oral hypoglycemics at home, which are on hold. We will get A1c currently. She has been put on before meals and at bedtime glucose checks and low-dose sliding scale. 2. History of breast cancer. Outpatient follow-up with her oncologist. 3. Hypertension. Currently will let permissive hypertension and hold all her an tihypertensive medications. She is on clonidine and lisinopril. 4. History of arthritis and fibromyalgia. We will continue patient's home medication. 5. Hyperlipidemia. Continue patient's home medication. 7. Deep venous thrombosis (DVT) prophylaxis. Heparin subcutaneous daily. PT, OT consult Disposition unknown at this time The patient is high risk because of CVA with frontoparietal stroke and the likely length of stay is greater than 2 midnights. Vital Signs Vital Signs Date Time Temp Pulse Resp B/P (MAP) Pulse Ox O2 Delivery O2 Flow Rate FiO2 07/06/19 11:15 96 07/06/19 10:45 124/62 (82) 07/06/19 10:21 18 96 Room Air 07/06/19 08:02 96.4 Laboratory Data Labs 24H Laboratory Tests 2 07/06/19 08:30: Immature Granulocyte % (Auto) 0.3, Neutrophils (%) (Auto) 54.0, Lymphocytes (%) (Auto) 33.0, Monocytes (%) (Auto) 6.6H, Eosinophils (%) (Auto) 5.3H, Basophils (%) (Auto) 0.8, Neutrophils # (Auto) 6.0, Lymphocytes # (Auto) 3.7, Monocytes # (Auto) 0.7, Eosinophils # (Auto) 0.6H, Basophils # (Auto) 0.1, Nucleated Red Blood Cells % (auto) 0.0, Prothrombin Time 12.1, Prothromb Time International Ratio 0.93, Activated Partial Thromboplast Time 31.0, Total Creatine Kinase 60, Creatine Kinase MB < 1.0, Creatine Kinase MB Relative Index 1.67, Troponin I < 0.02 07/06/19 08:38: POC Glucose (Misc Panel) 300H, POC Sodium (Misc Panel) 138, POC Potassium (Misc Panel) 3.7, POC Chloride (Misc Panel) 99, POC Total CO2 (Misc Panel) 26.0, POC Blood Urea Nitrogen (Misc Panel 4L, POC Ionized Calcium (Misc Panel) 4.5, POC Creatinine (Misc Panel) 0.4L, POC Hematocrit (Misc Panel) 36.0L CBC/BMP Laboratory Tests 07/06/19 08:30 Home Medications Scheduled Alogliptin Benzoate (Alogliptin) 25 Mg Tab, 25 MG PO DAILY Anastrozole (Anastrozole) 1 Mg Tab, 1 MG PO QHS Calcium Carbonate/Vitamin D3 (Oysco 500-Vit D3 200 Tablet) 1 Tab Tab, 1 TAB PO BID Clonidine (Clonidine) 0.1 Mg Patch.tdwk, 0.1 MG TOP QWEEK WEDNESDAYS - PATCH WAS REMOVED BY ED ON 07/06/19 Dicyclomine HCl (Dicyclomine HCl) 20 Mg Tablet, 20 MG PO QID Duloxetine HCl (Duloxetine HCl) 60 Mg Capsule.dr, 60 MG PO DAILY TAKES AT 1300 Fluoxetine Hcl (Fluoxetine HCl) 20 Mg Capsule, 20 MG PO DAILY TAKES AT 1300 Glyburide/Metformin HCl (Glyburide-Metformin 5-500 mg) 1 Tab Tab, 2 TAB PO BID Hydroxyzine HCl (Hydroxyzine HCl) 10 Mg Tab, 10 MG PO TID Lisinopril (Lisinopril) 10 Mg Tab, 10 MG PO DAILY TAKES AT 1300 Methocarbamol (Methocarbamol) 500 Mg Tab, 500 MG PO QID Montelukast Sodium (Montelukast Sodium) 10 Mg Tab, 10 MG PO DAILY TAKES AT 1300 Naproxen (Naproxen) 500 Mg Tablet.dr, 500 MG PO BID Omeprazole (Omeprazole) 40 Mg Cap, 40 MG PO DAILY TAKES AT 1300 Pregabalin (Lyrica) 150 Mg Cap, 150 MG PO TID Quetiapine Fumarate (Quetiapine Fumarate) 200 Mg Tablet, 200 MG PO QHS Simvastatin (Zocor) 80 Mg Tab, 80 MG PO QHS Zolpidem Tartrate (Ambien) 5 Mg Tab, 5 MG PO QHS Scheduled PRN Albuterol Sulfate (Albuterol Sulfate Hfa) 8.5 Gm Hfa.aer.ad, 2 PUFFS INH QID PRN for SHORTNESS OF BREATH Azelastine HCl (Azelastine HCl) 0.15% [place].pump, 2 SPRAY NARES BID PRN for ALLERGIES Diphenoxylate HCl/Atropine (Lomotil 2.5-0.025 mg Tablet) 1 Each Tablet, 1 TAB PO DAILY PRN for DIARRHEA Fluticasone Propionate (Flonase Allergy Relief) 9.9 Ml [place].susp, 1 SPRAY NARES BID PRN for ALLERGIES Guaifenesin (Mucinex) 600 Mg Tab.er.12h, 600 MG PO Q12H PRN for CONGESTION Metoclopramide HCl (Metoclopramide HCl) 10 Mg Tablet, 10 MG PO Q8H PRN for NAUSEA Oxycodone Hcl (Oxycodone HCl) 15 Mg Tab, 15 MG PO Q8H PRN for PAIN Allergies Coded Allergies: cyclobenzaprine (Verified Adverse Reaction, Intermediate, depression, 10/22/18) A-FIB/CHADSVASC A-FIB History Current/History of A-Fib/PAF?: No Current PO Anticoag Therapy: No LUTHER DONALD MD Jul 06, 2019 13:00
[2019-07-06 14:13] LABS: HEMOGLOBIN A1c 10.9 %
[2019-07-06] MEDS: HumaLOG INSULIN (NovoLOG) PER UNIT SC SCH ×3 (15:25→21:56)
[2019-07-06] MEDS: HEPARIN SOD (PORCINE) 5000 UNITS/ML VIAL SC SCH ×2 (15:36→21:56)
[2019-07-06] MEDS: FLUoxetine 20 MG CAP PO SCH (15:37)
[2019-07-06] MEDS: MONTELUKAST 10 MG TAB PO SCH (15:37)
[2019-07-06] MEDS: METHOCARBAMOL 500 MG TAB PO SCH ×3 (15:37→21:55)
[2019-07-06] MEDS: oxyCODONE 5MG TAB PO PRN (17:28)
[2019-07-06] MEDS: hydrOXYzine 10 MG TAB PO SCH ×2 (17:28→22:01)
[2019-07-06] MEDS: PREGABALIN 75 MG CAP(LYRICA) PO SCH ×2 (17:28→21:55)
[2019-07-06 20:00] VITALS: BP 177/73
[2019-07-06] MEDS: QUEtiapine FUMARATE 200 MG TAB PO SCH (21:55)
[2019-07-06] MEDS: SIMVASTATIN 40 MG TAB PO SCH (21:55)
[2019-07-07] VITALS (7 sets, daily range): BP systolic 106–182; BP diastolic 57–89
[2019-07-07] MEDS: HEPARIN SOD (PORCINE) 5000 UNITS/ML VIAL SC SCH ×3 (05:54→21:15)
[2019-07-07 06:09] LABS: HEMATOCRIT 35.2 % (36.0-47.0); MEAN CORPUSCULAR HEMOGLOBIN 19.8 pg (27.0-33.0); MEAN CORPUSCULAR HGB CONC 28.4 g/dl (32.0-36.5); MEAN CORPUSCULAR VOLUME 69.6 fl (80.0-96.0); PLATELET COUNT, AUTOMATED 414 10^3/uL (150-450); RED BLOOD COUNT 5.06 10^6/uL (4.00-5.40)
[2019-07-07 06:37] LABS: ALBUMIN 3.1 GM/DL (3.2-5.2); ALT/SGPT 31 U/L (12-78); BILIRUBIN,TOTAL 0.3 MG/DL (0.2-1.0); BLOOD UREA NITROGEN 5 MG/DL (7-18); CALCIUM LEVEL 8.8 MG/DL (8.5-10.1); CARBON DIOXIDE LEVEL 28 MEQ/L (21-32); CHLORIDE LEVEL 105 MEQ/L (98-107); CREATININE FOR GFR 0.51 MG/DL (0.55-1.30); GLOMERULAR FILTRATION RATE > 60.0 (>51); GLUCOSE, FASTING 184 MG/DL (70-100); POTASSIUM SERUM 3.4 MEQ/L (3.5-5.1); SODIUM LEVEL 142 MEQ/L (136-145); TOTAL PROTEIN 6.6 GM/DL (6.4-8.2)
--- NOTE | 2019-07-07 07:58 | ECGEPIP ---
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
[2019-07-07] MEDS ORDERED: POTASSIUM CHLORIDE 10 MEQ SR TABLET PO ONE ×2 (08:00→11:30)
[2019-07-07] MEDS ORDERED: KCL 10MEQ/100ML SWI (KRUN) 10 MEQ in IV 1 EA IV ONE (08:00)
[2019-07-07] MEDS ORDERED: LEVOTHYROXINE 75MCG TABLET (0.075MG) PO SCH (08:15)
[2019-07-07] MEDS: MONTELUKAST 10 MG TAB PO SCH (08:21)
[2019-07-07] MEDS: METHOCARBAMOL 500 MG TAB PO SCH ×4 (08:21→21:14)
[2019-07-07] MEDS: PREGABALIN 75 MG CAP(LYRICA) PO SCH ×3 (08:21→21:14)
[2019-07-07] MEDS: ASPIRIN 81 MG ENTERIC TAB PO SCH (08:22)
[2019-07-07] MEDS: HumaLOG INSULIN (NovoLOG) PER UNIT SC SCH ×4 (08:22→21:00)
[2019-07-07] MEDS: FLUoxetine 20 MG CAP PO SCH (08:22)
[2019-07-07] MEDS: hydrOXYzine 10 MG TAB PO SCH ×3 (08:22→21:14)
[2019-07-07] MEDS: oxyCODONE 5MG TAB PO PRN (08:23)
[2019-07-07 09:15] LABS: FREE T3 1.8 PG/ML (2.2-4.0); FREE T4 0.95 NG/DL (0.76-1.46)
[2019-07-07] MEDS ORDERED: FLUTICASONE PROP 0.05% NASAL SPRAY 16 GM (FLONASE) NARES PRN (10:00)
--- NOTE | 2019-07-07 10:05 | REP ---
CAROTID ULTRASOUND: Real-time ultrasound evaluation and duplex Doppler interrogation of the extracranial carotid vasculature is performed. There is mild plaquing and narrowing in both carotid bulbs extending into the internal and external carotid arteries. Luminal narrowing is less than 50%. There is no evidence of hemodynamically significant stenosis of either internal carotid artery. Normal flow velocities are seen. The vertebral arteries demonstrate normal direction of flow. RIGHT LEFT Peak systolic velocity ICA 115 cm/s 120.2 cm/s End diastolic velocity ICA 28.2 cm/s 36.4 cm/s Peak systolic velocity CCA 99.2 cm/s 105.4 cm/s Peak systolic velocity ECA 81.5 cm/s 92 cm/s ICA/CCA ratio 1.16 1.14 IMPRESSION: Bilateral luminal narrowing of the internal carotid arteries less than 50%. No evidence of hemodynamically significant stenosis. Electronically Signed by Deven Ratliff MD 07/07/2019 09:56 A
--- NOTE | 2019-07-07 11:20 | IPNPDOC ---
Date Seen The patient was seen on 07/07/19. Progress Note SUBJECTIVE: Patient is a 56-year-old female with history of tobacco abuse, breast cancer, diabetes, hypertension, and hyperlipidemia who presented with left-sided facial numbness and dysarthria found to have acute ischemic CVA Patient states she is feeling somewhat anxious this morning. She states she did not sleep well last night because she did not receive her Ambien which typically helps keep her asleep. She also notes that she's been having some abdominal discomfort which she attributes to her history of IBS. She denies any current weakness in her upper or lower extremities. She denies any current numbness or tingling in her face, upper extremities, and lower extremities. She denies any headaches or change in vision. OBJECTIVE PHYSICAL EXAMINATION: VITAL SIGNS: Please see below. GENERAL: Alert, comfortable sitting up on the side of the bed, in no acute distress HEENT: Normocephalic, atraumatic, PERRLA, EOMI, moist mucous membranes NECK: Supple, trachea midline, no lymphadenopathy, no JVD CARDIOVASCULAR: Regular rate and rhythm, normal S1 and S2. No murmurs, rubs, or gallops RESPIRATORY: Clear to auscultation bilaterally with equal air entry bilaterally. No wheezing, rhonchi, or rales. ABDOMEN: Soft, nontender, nondistended, bowel sounds present, no masses or hepatosplenomegaly appreciated EXTREMITIES: No cyanosis or edema. Pulses 2+/4 in bilateral upper and lower ex tremities SKIN: [place], warm, dry NEUROLOGIC: Alert and oriented 3 to person, place and time. Left-sided facial droop noted with loss of nasolabial fold. Otherwise, the remaining cranial nerves 212 appear intact. Strength 5/5 in bilateral upper and lower extremities. No change in sensation is noted in bilateral upper and lower extremities. PSYCHIATRIC: Mood and affect appropriate LABORATORY DATA, IMAGING STUDIES, MICROBIOLOGY: Please see below. Telemetry monitoring: Occasional PVCs and PACs. Currently in sinus rhythm. ASSESSMENT AND PLAN: 56-year-old female with history of tobacco abuse, breast cancer, diabetes, hypertension, and hyperlipidemia who presented with left-sided facial numbness and dysarthria found to have acute ischemic CVA # Right frontoparietal ischemic CVA - Pt was out of the TPA time frame on presentation. - Continue aspirin and atorvastatin - MRA negative. Carotid doppler pending. Echocardiogram pending. - No atrial fibrillation seen on telemetry - PT, OT, and speech therapy consulted. # Diabetes mellitus - Hold home hypoglycemic medications. FfO1u=88.9 - Continue sliding scale insulin, may add a basal insulin tomorrow. - Consider continuing insulin on discharge for better control # History of breast cancer - Outpatient follow-up with her oncologist. # Hypertension - Currently will let permissive hypertension and hold all her antihypertensive medications. Typically on clonidine and lisinopril at home. # History of arthritis and fibromyalgia - Continue patient's home medication. # Hyperlipidemia - Continue patient's home medication. DVT prophylaxis: SC Heparin daily. DISPOSITION: pending carotid doppler, echocardiogram, and PT/OT/speech evaluations VS, I&O, 24H, Fishbone Vital Signs/I&O Vital Signs Date Time Temp Pulse Resp B/P (MAP) Pulse Ox O2 Delivery O2 Flow Rate FiO2 07/07/19 08:23 18 07/07/19 08:00 98.5 95 182/82 (115) 95 Room Air I&O- Last 24 Hours up to 6 AM 07/07/19 06:00 Intake Total 240 ml Output Total 1650 ml Balance -1410 ml Laboratory Data 24H LABS Laboratory Tests 2 07/06/19 12:00: Estimated Mean Plasma Glucose 266H, Hemoglobin A1c 10.9 07/06/19 17:25: Bedside Glucose (Misc Panel) 241H 07/06/19 20:41: Bedside Glucose (Misc Panel) 271H 07/07/19 05:50: Nucleated Red Blood Cells % (auto) 0.0, Anion Gap 9, Glomerular Filtration Rate > 60.0, Calcium Level 8.8, Total Bilirubin 0.3, Aspartate Amino Transf (AST/SGOT) 24, Alanine Aminotransferase (ALT/SGPT) 31, Alkaline Phosphatase 73, Total Protein 6.6, Albumin 3.1L, Albumin/Globulin Ratio 0.89L, Free Thyroxine 0.95, Free Triiodothyronine 1.8L CBC/BMP Laboratory Tests 07/07/19 05:50 GME ATTESTATION GME ATTESTATION My faculty preceptor for this patient encounter was physically present during the encounter and was fully available. All aspects of the patient interview, examination, medical decision making process, and medical care plan development were reviewed and approved by the faculty preceptor. The faculty preceptor is aware and concurs with the plan as stated in the body of this note and will attest to such by his/her cosignature. ATTENDING NOTE Patient was seen and examined by me this morning with the residents. Agree with the above assessment and plan JAY JAY LEIVA D.O. Jul 07, 2019 11:20 LUTHER DONALD MD Jul 08, 2019 13:34
[2019-07-07] MEDS ORDERED: ALPRAZolam 0.25 MG TAB PO ONE (18:00)
[2019-07-07] MEDS: SIMVASTATIN 40 MG TAB PO SCH (21:14)
[2019-07-07] MEDS: QUEtiapine FUMARATE 200 MG TAB PO SCH (21:15)
[2019-07-08 02:00] VITALS: BP 116/70
[2019-07-08 06:00] VITALS: BP 115/80
[2019-07-08] MEDS: HEPARIN SOD (PORCINE) 5000 UNITS/ML VIAL SC SCH (06:00)
--- NOTE | 2019-07-08 07:51 | ECHO ---
DATE OF PROCEDURE: 07/07/2019 HEIGHT: 66 inches. WEIGHT: 227 pounds. BODY SURFACE AREA: 2,11 meters squared. INPATIENT: PCU room 3214 REFERRING PHYSICIAN: Dr. Kendrick Alfonso INDICATION: Transient ischemic attack (TIA) - cardiac source of embolic material? MEASUREMENTS: 2D Measurements: RV - 3.6 cm LV - 5.0 cm Septum -1.1 cm Posterior wall -1.1 cm Aortic root - 3.4 cm LA - 3.9 cm LVEF - 65% Doppler Measurements: AV - 1.38 meters per second LVOT - 1.1 meters per second LVOT - 2.1 small cm MV -, E 103, A 131, E/A ratio 0.8 E prime medial - 5.8, A prime medial - 12.7, E prime lateral - 7.5 Average E/E prime ratio 15.5/PCWP - 21 mmHg PV - 1.0 meters per second Pulmonary artery acceleration time -116 milliseconds RVSP - 38 mmHg IVP - 1.7 cm COMMENTS: Normal sinus rhythm without intraventricular conduction disturbance. Slightly challenging study in light of the patient's body habitus but diagnostically useful information was still obtained. M-mode and two-dimensional echocardiography was performed with pulsed, continuous wave, color flow and tissue Doppler studies. Normal left ventricular size, wall thickness and wall motion. Left atrial size upper limits of normal to mildly dilated with grade 1 LV diastolic dysfunction and elevated mean left atrial pressure. Normal right heart chamber sizes and motion with Doppler evidence of mild pulmonary hypertension. Normal IVC size and collapse against an elevated central venous pressure. Normal appearing and functioning aortic valve. Normal aortic diameters. Normal-appearing mitral valvular apparatus and leaflet excursion with no obvious posterior systolic buckling. Mild - moderate eccentric mitral insufficiency. Normal appearing tricuspid valve with mild insufficiency. No apparent intracardiac mass or pericardial effusion.
[2019-07-08 08:37] LABS: HEMATOCRIT 35.5 % (36.0-47.0); HEMOGLOBIN 10.2 g/dl (12.0-15.5); MEAN CORPUSCULAR HGB CONC 28.7 g/dl (32.0-36.5); MEAN CORPUSCULAR VOLUME 69.5 fl (80.0-96.0); PLATELET COUNT, AUTOMATED 427 10^3/uL (150-450); RED BLOOD COUNT 5.11 10^6/uL (4.00-5.40); WHITE BLOOD COUNT 9.8 10^3/uL (4.0-10.0)
[2019-07-08 09:00] LABS: BLOOD UREA NITROGEN 5 MG/DL (7-18); CALCIUM LEVEL 8.8 MG/DL (8.5-10.1); CARBON DIOXIDE LEVEL 27 MEQ/L (21-32); CHLORIDE LEVEL 106 MEQ/L (98-107); CREATININE FOR GFR 0.62 MG/DL (0.55-1.30); GLOMERULAR FILTRATION RATE > 60.0 (>51); GLUCOSE, FASTING 313 MG/DL (70-100); SODIUM LEVEL 139 MEQ/L (136-145)
[2019-07-08] MEDS ORDERED: FLUBLOK(EGG FREE)(QUAD)INFLUENZA VACC 0.5ML SYRINGE (90682)18YRS&OLDER IM ONE (09:00)
[2019-07-08] MEDS ORDERED: LEVEMIR (INSULIN DETEMIR) 1 UNITS/0.01ML SC SCH (09:00)
[2019-07-08] MEDS: hydrOXYzine 10 MG TAB PO SCH (09:08)
[2019-07-08] MEDS: PREGABALIN 75 MG CAP(LYRICA) PO SCH (09:08)
[2019-07-08] MEDS: METHOCARBAMOL 500 MG TAB PO SCH (09:08)
[2019-07-08] MEDS: MONTELUKAST 10 MG TAB PO SCH (09:08)
[2019-07-08] MEDS: FLUoxetine 20 MG CAP PO SCH (09:08)
[2019-07-08] MEDS: ASPIRIN 81 MG ENTERIC TAB PO SCH (09:08)
[2019-07-08] MEDS: HumaLOG INSULIN (NovoLOG) PER UNIT SC SCH (09:09)
[2019-07-08] MEDS ORDERED: ASPI81TAEC PO (09:55)
--- NOTE | 2019-07-08 18:44 | DS.PDOC ---
Discharge Summary General Date of Admission Jul 06, 2019 at 12:34 Date of Discharge 07/08/2019 Attending Physician: LUTHER DONALD MD Discharge Summary PROCEDURES PERFORMED DURING STAY: None. ADMITTING DIAGNOSES: 1. Right frontoparietal CVA. 2. Diabetes mellitus. 3. History of breast cancer. 4. Hypertension. 5. Arthritis and fibromyalgia. 6. Hyperlipidemia DISCHARGE DIAGNOSES: 1. Right frontoparietal CVA. 2. Diabetes mellitus. 3. History of breast cancer. 4. Hypertension. 5. Arthritis and fibromyalgia. 6. Hyperlipidemia COMPLICATIONS/CHIEF COMPLAINT: CVA. HISTORY OF PRESENT ILLNESS: 56-year-old female with a history of tobacco abuse, arthritis, diabetes, fibromyalgia, history of breast cancer, hypertension, and hyperlipidemia who presented to emergency room if any of numbness across the left side of her face starting to a.m. that day and change in her speech. She was unable to make proper words. She also states she was given water that it was dripping out of the left side of her mouth. Is evaluated and found to have an acute frontoparietal CVA on MRI. At time of presentation, she was out about the timeframe for TSH, but she was started on aspirin therapy. The patient denied any additional symptoms or complaints. HOSPITAL COURSE: Patient was admitted to the hospital and continued on aspirin, which was started in the ED, and simvastatin, which is a home medication for her at 80 mg. Stroke workup was completed with MRA, carotid doppler, and echocardiogram. Patient was also on telemetry, which did not reveal any arrhythmias. Patient was also found to have a mildly elevated TSH should be further assessed in the outpatient setting. During her admission, the patient was kept on insulin for diabetes management. She was found to have a hemoglobin A1c of 10.9. We discussed discharging the patient on her home insulin for better control of her diabetes, the patient declined this. The patient's symptoms did resolve after the first night of her admission. The patient was evaluated by physical therapy, occupational therapy, and speech therapy and was cleared for discharge home. Relative discharge, the patient was found to be stable and safe for discharge. DISCHARGE MEDICATIONS: Please see below. ALLERGIES: Please see below. PHYSICAL EXAMINATION ON DISCHARGE: VITAL SIGNS: Please see below. GENERAL: Alert, comfortable sitting up on the side of the bed, in no acute distress HEENT: Normocephalic, atraumatic, PERRLA, EOMI, moist mucous membranes NECK: Supple, trachea midline, no lymphadenopathy, no JVD CARDIOVASCULAR: Regular rate and rhythm, normal S1 and S2. No murmurs, rubs, or gallops RESPIRATORY: Clear to auscultation bilaterally with equal air entry bilaterally. No wheezing, rhonchi, or rales. ABDOMEN: Soft, nontender, nondistended, bowel sounds present, no masses or hepatosplenomegaly appreciated EXTREMITIES: No cyanosis or edema. Pulses 2+/4 in bilateral upper and lower extremities SKIN: [place], warm, dry NEUROLOGIC: Alert and oriented 3 to person, place and time. Left-sided facial droop noted with loss of nasolabial fold. Otherwise, the remaining cranial nerves 212 appear intact. Strength 5/5 in bilateral upper and lower extrem ities. No change in sensation is noted in bilateral upper and lower extremities. PSYCHIATRIC: Mood and affect appropriate LABORATORY DATA: Please see below. IMAGING: Head CT 07/06: Negative noncontrast head CT. Chest x-ray 07/06: No acute pulmonary disease. Brain MRI 07/06: Suspected acute posterior right frontal lobe/MCA infarction without mass effect or hemorrhage. Please correlate clinically. 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 Brain MRA 07/06: No intracranial high-grade stenosis or vessel occlusion. Vascular ultrasound 07/07: Bilateral luminal narrowing of the internal carotid arteries less than 50%. No evidence of hemodynamically significant stenosis PROGNOSIS: Good ACTIVITY: As tolerated. DIET: Consistent carbohydrate DISCHARGE PLAN: Home DISPOSITION: 01 Home, Self-Care. DISCHARGE INSTRUCTIONS: 1. Follow-up with your PCP in 7-10 days 2. Please start taking aspirin 81 mg daily. Continue taking all your other medications as prescribed. 3. If your symptoms return or your condition worsens, please call your PCP or return to the ED for further evaluation. ITEMS TO FOLLOWUP ON ON OUTPATIENT: 1. Frontoparietal CVA. 2. Diabetes mellitus management. 3. Smoking cessation 4. Elevated TSH 5. Depression/anxiety DISCHARGE CONDITION: Stable. TIME SPENT ON DISCHARGE: Greater than 35 minutes. Vital Signs/I&Os Vital Signs Date Time Temp Pulse Resp B/P (MAP) Pulse Ox O2 Delivery O2 Flow Rate FiO2 07/08/19 06:00 96.8 90 16 115/80 (92) 95 Room Air I&O- Last 24 Hours up to 6 AM0 07/08/19 06:00 Intake Total 900 ml Output Total 300 ml Balance 600 ml Laboratory Data Labs 24H Laboratory Tests 2 07/07/19 21:07: Bedside Glucose (Misc Panel) 250H 07/08/19 06:33: Bedside Glucose (Misc Panel) 258H 07/08/19 08:12: Nucleated Red Blood Cells % (auto) 0.0, Anion Gap 6L, Glomerular Filtration Rate > 60.0, Calcium Level 8.8 CBC/BMP Laboratory Tests 07/08/19 08:12 FSBS Laboratory Tests Test 07/07/19 21:07 07/08/19 06:33 Range/Units Bedside Glucose (Misc Panel) 250 258 70-105 MG/DL Discharge Medications Scheduled Alogliptin Benzoate (Alogliptin) 25 Mg Tab, 25 MG PO DAILY, (Reported) Anastrozole (Anastrozole) 1 Mg Tab, 1 MG PO QHS, (Reported) Aspirin (Aspirin EC) 81 Mg Tablet.dr, 81 MG PO DAILY Calcium Carbonate/Vitamin D3 ([place] 500-Vit D3 200 Tablet) 1 Tab Tab, 1 TAB PO BID, (Reported) Clonidine (Clonidine) 0.1 Mg Patch.tdwk, 0.1 MG TOP QWEEK, (Reported) WEDNESDAYS - PATCH WAS REMOVED BY ED ON 07/06/19 Dicyclomine HCl (Dicyclomine HCl) 20 Mg Tablet, 20 MG PO QID, (Reported) Duloxetine HCl (Duloxetine HCl) 60 Mg Capsule.dr, 60 MG PO DAILY, (Reported) TAKES AT 1300 Fluoxetine Hcl (Fluoxetine HCl) 20 Mg Capsule, 20 MG PO DAILY, (Reported) TAKES AT 1300 Glyburide/Metformin HCl (Glyburide-Metformin 5-500 mg) 1 Tab Tab, 2 TAB PO BID, (Reported) Hydroxyzine HCl (Hydroxyzine HCl) 10 Mg Tab, 10 MG PO TID, (Reported) Lisinopril (Lisinopril) 10 Mg Tab, 10 MG PO DAILY, (Reported) TAKES AT 1300 Methocarbamol (Methocarbamol) 500 Mg Tab, 500 MG PO QID, (Reported) Montelukast Sodium (Montelukast Sodium) 10 Mg Tab, 10 MG PO DAILY, (Reported) TAKES AT 1300 Naproxen (Naproxen) 500 Mg Tablet.dr, 500 MG PO BID, (Reported) Omeprazole (Omeprazole) 40 Mg Cap, 40 MG PO DAILY, (Reported) TAKES AT 1300 Pregabalin (Lyrica) 150 Mg Cap, 150 MG PO TID, (Reported) Quetiapine Fumarate (Quetiapine Fumarate) 200 Mg Tablet, 200 MG PO QHS, (Reported) Simvastatin (Zocor) 80 Mg Tab, 80 MG PO QHS, (Reported) Zolpidem Tartrate (Ambien) 5 Mg Tab, 5 MG PO QHS, (Reported) Scheduled PRN Albuterol Sulfate (Albuterol Sulfate Hfa) 8.5 Gm Hfa.aer.ad, 2 PUFFS INH QID PRN for SHORTNESS OF BREATH, (Reported) Azelastine HCl (Azelastine HCl) 0.15% [place].pump, 2 SPRAY NARES BID PRN for ALLERGIES, (Reported) Diphenoxylate HCl/Atropine (Lomotil 2.5-0.025 mg Tablet) 1 Each Tablet, 1 TAB PO DAILY PRN for DIARRHEA, (Reported) Fluticasone Propionate (Flonase Allergy Relief) 9.9 Ml [place].susp, 1 SPRAY NARES BID PRN for ALLERGIES, (Reported) Guaifenesin (Mucinex) 600 Mg Tab.er.12h, 600 MG PO Q12H PRN for CONGESTION, (Reported) Metoclopramide HCl (Metoclopramide HCl) 10 Mg Tablet, 10 MG PO Q8H PRN for NAUSEA, (Reported) Oxycodone Hcl (Oxycodone HCl) 15 Mg Tab, 15 MG PO Q8H PRN for PAIN, (Reported) Allergies Coded Allergies: cyclobenzaprine (Verified Adverse Reaction, Intermediate, depression, 10/22/18) GME ATTESTATION GME ATTESTATION My faculty preceptor for this patient encounter was physically present during the encounter and was fully available. All aspects of the patient interview, e xamination, medical decision making process, and medical care plan development were reviewed and approved by the faculty preceptor. The faculty preceptor is aware and concurs with the plan as stated in the body of this note and will attest to such by his/her cosignature. ATTENDING NOTE Patient was seen and examined by me this morning with the residents. Agree with the above assessment and plan JAY JAY LEIVA D.O. 19, 2019 18:44 LUTHER DONALD MD Jul 09, 2019 10:56
== END 2019-07-08 11:01 | disposition home or self-care (01) | DRG 45 ==
LOC: M ED 08:01 → M ED INP 12:34 → M PCU 13:51 → M MSPAV 07-07 14:35
PROVIDERS: ADMIT Internal Medicine; ATTEND Internal Medicine
DX: I63.9 Cerebral infarction, unspecified (principal); I10 Essential (primary) hypertension; E11.9 Type 2 diabetes mellitus without complications; Z85.3 Personal history of malignant neoplasm of breast; M19.90 Unspecified osteoarthritis, unspecified site; M79.7 Fibromyalgia; F17.200 Nicotine dependence, unspecified, uncomplicated; F41.9 Anxiety disorder, unspecified; F32.9 Major depressive disorder, single episode, unspecified; Z79.82 Long term (current) use of aspirin; Z79.899 Other long term (current) drug therapy; Z88.8 Allergy status to other drugs, medicaments and biological substances

== ENCOUNTER 2019-07-22 16:23 | Inpatient (IN) | payer OTHER ==
[~2019-07-22] VITALS: Ht 167.6 cm; Wt 101.2 kg
[~2019-07-22 16:23] MED LIST changes: +ASPI81TAEC PO; +AZEL0.055 NARES; +CLON0.1D3 TOP; +DICY20TA11 PO; +DULO60CA35 PO; +FLON1SPR NARES; +FLUO20CA20 PO; +METO10TA2 PO; +MUCI600T31 PO; +NAPR500T6 PO; +QUET200T2 PO
[2019-07-22] MEDS ORDERED: ALPRAZolam 0.25 MG TAB PO ONE (16:45)
[2019-07-22 16:57] LABS: BASO # 0.1 10^3/uL (0.0-0.2); BASO % 0.6 % (0.0-1.0); EOS # 0.4 10^3/uL (0.0-0.5); EOS % 3.3 % (0.0-3.0); HEMATOCRIT 37.9 % (36.0-47.0); HEMOGLOBIN 10.9 g/dl (12.0-15.5); LYMPH # 3.1 10^3/uL (1.5-5.0); LYMPH % 27.9 % (24.0-44.0); MEAN CORPUSCULAR HEMOGLOBIN 20.2 pg (27.0-33.0); MEAN CORPUSCULAR HGB CONC 28.8 g/dl (32.0-36.5); MEAN CORPUSCULAR VOLUME 70.2 fl (80.0-96.0); MONO # 0.6 10^3/uL (0.0-0.8); MONO % 5.1 % (0.0-5.0); NEUTROPHILS % 62.7 % (36.0-66.0); PLATELET COUNT, AUTOMATED 430 10^3/uL (150-450); WHITE BLOOD COUNT 11.2 10^3/uL (4.0-10.0)
--- NOTE | 2019-07-22 17:06 | REP ---
CT brain: 07/22/2019. Indication: Stroke. Comparison: 07/06/2019. Technique: Unenhanced axial CT images of the brain were obtained from skull base to vertex with coronal reconstructions provided. Findings: There is no acute intracranial hemorrhage, acute cortical infarction, mass effect or hydrocephalous. Volume loss is present. Impression: No acute intracranial process. Electronically Signed by Bernabe Mayer DO 07/22/2019 04:58 P
[2019-07-22 17:27] LABS: INR 0.97; PROTHROMBIN TIME 12.6 SECONDS (11.8-14.0)
[2019-07-22 17:28] LABS: PARTIAL THROMBOPLASTIN TIME 30.8 SECONDS (25.0-38.4)
[2019-07-22 17:33] LABS: BLOOD UREA NITROGEN 4 MG/DL (7-18); CALCIUM LEVEL 8.8 MG/DL (8.5-10.1); CARBON DIOXIDE LEVEL 22 MEQ/L (21-32); CHLORIDE LEVEL 101 MEQ/L (98-107); CREATININE FOR GFR 0.71 MG/DL (0.55-1.30); GLOMERULAR FILTRATION RATE > 60.0 (>51); GLUCOSE, FASTING 268 MG/DL (70-100); POTASSIUM SERUM 4.6 MEQ/L (3.5-5.1); SODIUM LEVEL 135 MEQ/L (136-145)
--- NOTE | 2019-07-22 19:06 | REPVR ---
PROCEDURE INFORMATION: Exam: MR Head Without Contrast Exam date and time: 07/22/2019 6:29 PM Age: 59 years old Clinical indication: Dizziness; Additional info: CVA TECHNIQUE: Imaging protocol: MR of the head without contrast. COMPARISON: MRI-Brain without Contrast 07/06/2019 9:15 AM FINDINGS: Brain: There are scattered foci of the restricted diffusion within the both cerebral hemispheres. Specifically, these involves the bilateral middle cerebral artery territories. Restricted diffusion is present along the left insula, the adjacent lateral left frontoparietal junction, the posterolateral left frontal lobe, the lateral right frontoparietal junction, and the right centrum semiovale. Corresponding decreased signal on the ADC map and increased T2 signal is present. The findings are consistent with acute to subacute infarcts. There is no hemorrhagic conversion. No mass effect or midline shift is present. Scattered increased T2 and FLAIR signal within the periventricular and subcortical white matter is present. This is nonspecific but likely related to chronic microangiopathic ischemic change. Ventricles: No hydrocephalus. Bones/joints: Unremarkable. Soft tissues: Unremarkable. Sinuses: Mucosal thickening is present in the sphenoid and right maxillary sinuses. Mastoid air cells: Normal as visualized. No mastoid effusion. Orbits: Unremarkable. IMPRESSION: Acute/subacute bilateral cerebral infarcts. An embolic source from the heart or aortic arch should be considered. Electronically signed by: Isiah Adkins On 07/22/2019 19:06:18 PM
--- NOTE | 2019-07-22 19:16 | HPEPDOC ---
[facility] Medical History & Physical Date of Admission Jul 22, 2019 Date of Service: Jul 22, 2019 Other Provider BEE CONTRERAS MD Attending Physician: AMBROCIO CESPEDES MD History and Physical TIME OF SERVICE: 8:15 PM CHIEF COMPLAINT: Confusion HISTORY OF PRESENT ILLNESS: This is a 59 old female who presents to the hospital with her who reports that this afternoon his appeared to be confused; specifically, she had difficulties communicating, getting her words out, had problems texting, and had problems spelling her last name. She has had these symptoms off and on for the last few days. The patient's denies noticing slurred speech, or a change in the way her face appears. The patient denies having weakness in her hands or legs, denies having paresthesias, denies having difficulty swallowing, denies falling, denies having headache, denies having dizziness, denies having chest pain, denies having palpitations. 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 Dyslipidemia. IBS History of nephrolithiasis. Status post cholecystectomy Status post hysterectomy SOCIAL HISTORY: She smokes ( has cut back from 2 cigarettes to 6 cigarettes per day) She drinks alcohol occasionally. She lives with her and grand kids FAMILY HISTORY: Her father and sisters have had strokes. Her mother had CAD ALLERGIES: Please see below. HOME MEDICATIONS: Please see below. PHYSICAL EXAMINATION: VITAL SIGNS: Please see below. GEN: well-nourished / well developed/ teary INTEGUMENT: not flushed/ not jaundice HEENT: NCAT / lips acyanotic /mucus membranes moist and pink CVS: RRR/NMRG/ radial and dorsalis pedis pulses intact / no carotid bruit LUNGS: lungs are clear to auscultation bilaterally on room air ABDOMEN: there are no masses or lesions / the abdomen is tympanic on percussion, soft & not tender with palpation MSK/EXTREMITIES: range of motion intact in all 4 extremities NEURO: CN 2-12 are grossly intact / speech is not dysarthric / strength is 5/5 in all extremities PSYCH: alert and oriented to person place / she has some difficulties naming the date (January 2002) /she is able to understand and follow all commands LABORATORY DATA: See below. IMAGING: CT head "Impression: No acute intracranial process." MRI brain " IMPRESSION: Acute/subacute bilateral cerebral infarcts. An embolic source from the heart or aortic arch should be considered. " MICROBIOLOGY: Please see below. ASSESSMENT: Ms. Coon is a 53-year-old with a past medical history of right frontoparietal CVA, breast cancer, type 2 diabetes, fibromyalgia, GERD, hypertension, dyslipidemia, and IBS admitted for management of subacute bilateral CVAs. PLAN: 1. Bilateral subacute CVAs Her primary symptoms could word finding difficulties, and lack of coordination with her hands. She was diagnosed with a right frontoparietal CVA in June 2019. During that admission, her A1c was 10, and TSH was slightly elevated. Plan: admit to PCU / telemetry /fall precautions / f/u repeat Echo / NPO & hold oral meds pending swallow evaluation / aspiration precautions / PT/OT consult /neurology consult / no need for permissive hypertension because the symptoms begun more than 24H hours ago / Post stroke target glycemic range between 140 and 180 / rectal ASA 2. DM2 A1C 10.9% During the last admission she declined being discharged with insulin Plan: diabetic diet / f/u accuchecks / hypoglycemia protocol / since she is insulin naive we will start determir 18 units QHS w lispro 6 with meals + sliding scale insulin / hold oral anti-glycemics / DM education 3. Microcytic anemia Hemoglobin is 10.9 with an MCV of 70.2. Plan: Follow up stool occult and iron panel w ferritin /pending results she can be referred to GI on an out pt basis for a colonoscopy 4. Chronic hypertension. Plan: c/w clonidine patch & hold lisinopril while NPO / add IV metoprolol 5. Dyslipidemia Plan: hold statin while NPO 6. Fibromyalgia Plan: hold PO Ibuprofen / IV toradol 7. IBD Plan: hold lomitol while NPO 8. GERD Plan: hold PPI pending swallow eval 9. Obesity Her BMI is 36.5 This complicates her care She also has coexisting diabetes. Since her BMI is greater than 35 & she has diabetes, she is a candidate for bariatric surgery Plan: can f/u w PCP for STOP BANG questionnaire, fabrication department supervisor consult & referral for Bariatric Surgeon / recommend cardiovascular exercise for 40 min 4-5 days a week DVT PROPHYLAXIS: Heparin DISPOSITION: rehab vs home after more than 2 midnight's stay Vital Signs Vital Signs Date Time Temp Pulse Resp B/P (MAP) Pulse Ox O2 Delivery O2 Flow Rate FiO2 07/22/19 19:08 92 94 07/22/19 19:00 127/69 (88) 07/22/19 17:38 Room Air 07/22/19 16:24 97.4 20 Laboratory Data Labs 24H Laboratory Tests 2 07/22/19 16:35: Immature Granulocyte % (Auto) 0.4, Neutrophils (%) (Auto) 62.7, Lymphocytes (%) (Auto) 27.9, Monocytes (%) (Auto) 5.1H, Eosinophils (%) (Auto) 3.3H, Basophils (%) (Auto) 0.6, Neutrophils # (Auto) 7.0, Lymphocytes # (Auto) 3.1, Monocytes # (Auto) 0.6, Eosinophils # (Auto) 0.4, Basophils # (Auto) 0.1, Nucleated Red Blood Cells % (auto) 0.0, Anion Gap 12, Glomerular Filtration Rate > 60.0, Calcium Level 8.8 07/22/19 16:41: Prothrombin Time 12.6, Prothromb Time International Ratio 0.97, Activated Partial Thromboplast Time 30.8 CBC/BMP Laboratory Tests 07/22/19 16:35 Home Medications Scheduled Alogliptin Benzoate (Alogliptin) 25 Mg Tab, 25 MG PO DAILY Anastrozole (Anastrozole) 1 Mg Tab, 1 MG PO QHS Calcium Carbonate/Vitamin D3 ([place] 500-Vit D3 200 Tablet) 1 Tab Tab, 1 TAB PO BID Clonidine (Clonidine) 0.1 Mg Patch.tdwk, 0.1 MG TOP QWEEK WEDNESDAYS - PATCH WAS REMOVED BY ED ON 07/22/2019 Dicyclomine HCl (Dicyclomine HCl) 20 Mg Tablet, 20 MG PO QID Duloxetine Hcl (Duloxetine HCl) 60 Mg Capsule.dr, 60 MG PO DAILY 1300 Fluoxetine Hcl (Fluoxetine HCl) 20 Mg Capsule, 20 MG PO DAILY TAKES AT 1300 Glyburide/Metformin HCl (Glyburide-Metformin 5-500 mg) 1 Tab Tab, 2 TAB PO BID Hydroxyzine HCl (Hydroxyzine HCl) 10 Mg Tab, 10 MG PO TID Lisinopril (Lisinopril) 10 Mg Tab, 10 MG PO DAILY TAKES AT 1300 Methocarbamol (Methocarbamol) 500 Mg Tab, 500 MG PO QID Montelukast Sodium (Montelukast Sodium) 10 Mg Tab, 10 MG PO DAILY TAKES AT 1300 Naproxen (Naproxen) 500 Mg Tablet.dr, 500 MG PO BID Omeprazole (Omeprazole) 40 Mg Cap, 40 MG PO DAILY TAKES AT 1300 Pregabalin (Lyrica) 150 Mg Cap, 150 MG PO TID Quetiapine Fumarate (Quetiapine Fumarate) 200 Mg Tablet, 200 MG PO QHS Simvastatin (Zocor) 80 Mg Tab, 80 MG PO QHS Zolpidem Tartrate (Ambien) 5 Mg Tab, 5 MG PO QHS Scheduled PRN Albuterol Sulfate (Albuterol Sulfate Hfa) 8.5 Gm Hfa.aer.ad, 2 PUFFS INH QID PRN for SHORTNESS OF BREATH Azelastine HCl (Azelastine HCl) 0.15% [place].pump, 2 SPRAY NARES BID PRN for ALLERGIES Diphenoxylate HCl/Atropine (Lomotil 2.5-0.025 mg Tablet) 1 Each Tablet, 1 TAB PO DAILY PRN for DIARRHEA Metoclopramide HCl (Metoclopramide HCl) 10 Mg Tablet, 10 MG PO Q8H PRN for NAUSEA Oxycodone Hcl (Oxycodone HCl) 15 Mg Tab, 15 MG PO Q8H PRN for PAIN Allergies Coded Allergies: cyclobenzaprine (Verified Adverse Reaction, Intermediate, depression, 10/22/18) A-FIB/CHADSVASC A-FIB History Current/History of A-Fib/PAF?: No Current PO Anticoag Therapy: No AMBROCIO CESPEDES MD Jul 22, 2019 19:16
[2019-07-22] MEDS ORDERED: DULO1CAP6 PO (19:42)
[2019-07-22] MEDS ORDERED: GLUCAGON FOR INJ 1 MG VIAL (J1610) SC PRN (19:45)
[2019-07-22] MEDS ORDERED: NS 1,000 ML IV SCH (19:45)
[2019-07-22] MEDS ORDERED: DEXTROSE 50% 50 ML SYRINGE IV PRN (19:45)
[2019-07-22] MEDS ORDERED: GLUCOSE 4 GM CHEW TABLET PO PRN (19:45)
[2019-07-22] MEDS ORDERED: ASPIRIN 300 MG SUPP PR ONE (20:00)
[2019-07-22] MEDS ORDERED: METOPROLOL 5 MG/5 ML VIAL IV PRN (20:00)
[2019-07-22] MEDS ORDERED: KETOROLAC 30 MG/ML VIAL (J1885) IV PRN (20:00)
[2019-07-22] MEDS ORDERED: ASPIRIN 81 MG CHEW TABLET PO ONE (20:00)
[2019-07-22] MEDS ORDERED: LEVEMIR (INSULIN DETEMIR) 1 UNITS/0.01ML SC SCH (21:00)
[2019-07-22] MEDS: METHOCARBAMOL 500 MG TAB PO SCH (21:00)
[2019-07-22] MEDS: HumaLOG INSULIN (NovoLOG) PER UNIT SC SCH (21:00)
[2019-07-22] MEDS ORDERED: ALBUTEROL 90 MCG/ACT 8GM HFA INHALER INH PRN (21:00)
[2019-07-22] MEDS: HEPARIN SOD (PORCINE) 5000 UNITS/ML VIAL SC SCH (22:30)
[2019-07-22] MEDS ORDERED: METOCLOPRAMIDE 10 MG TAB PO PRN (23:15)
[2019-07-23] MEDS: cloNIDine HCL 0.1 MG/24 HR PATCH TOP SCH ×2 (01:40→23:44)
[2019-07-23] MEDS ORDERED: zolPIDEM TARTRATE 5 MG TAB PO ONE (01:45)
[2019-07-23] MEDS: hydrOXYzine 10 MG TAB PO SCH ×4 (01:51→20:59)
[2019-07-23] MEDS: NAPROXEN 250 MG TAB PO SCH ×3 (01:51→21:00)
[2019-07-23] MEDS: PREGABALIN 75 MG CAP(LYRICA) PO SCH ×4 (01:51→20:59)
[2019-07-23] MEDS: ATORVASTATIN 20 MG TAB PO SCH ×2 (01:51→20:59)
[2019-07-23] MEDS: CALCIUM/VITAMIN D 500 MG TAB PO SCH ×3 (01:52→21:00)
[2019-07-23] MEDS: ASPIRIN 81 MG CHEW TABLET PO SCH ×2 (01:52→08:24)
[2019-07-23] MEDS: QUEtiapine FUMARATE 200 MG TAB PO SCH ×2 (01:52→21:00)
[2019-07-23] MEDS: zolPIDEM TARTRATE 5 MG TAB PO SCH ×2 (01:59→21:03)
[2019-07-23 03:14] LABS: FERRITIN 6 NG/ML (8-252); IRON (FE) 31 UG/DL (50-170); PERCENT SATURATION 7.5 % (13.2-45.0); TOTAL IRON BINDING CAPACITY 416 UG/DL (250-450)
[2019-07-23 03:53] VITALS: BP 132/79
[2019-07-23] MEDS: HEPARIN SOD (PORCINE) 5000 UNITS/ML VIAL SC SCH ×3 (05:45→21:02)
[2019-07-23 08:00] VITALS: BP 152/82
[2019-07-23] MEDS: MONTELUKAST 10 MG TAB PO SCH (08:25)
[2019-07-23] MEDS: METHOCARBAMOL 500 MG TAB PO SCH ×4 (08:25→20:59)
[2019-07-23] MEDS: OMEPRAZOLE 20 MG CAP PO SCH (08:26)
[2019-07-23] MEDS: lisinopriL 10 MG TAB PO SCH (08:27)
[2019-07-23] MEDS: DULoxetine 30 MG CAP (CYMBALTA) PO SCH (08:27)
[2019-07-23] MEDS: FLUoxetine 20 MG CAP PO SCH (08:27)
--- NOTE | 2019-07-23 08:35 | ECGEPIP ---
[facility] Test Date: 2019-07-23 Pat Name: CASSANDRA ANAYA Department: Room: [place] [address] Gender: Female Manager Online: KENNA : 1960 Requested By: JAY JAY LEIVA D.O. Order Number: [id number] Reading MD: Sen Velez Measurements Intervals [place] Rate: 98 P: 53 MI: 179 QRS: 4 QRSD: 85 T: 43 QT: 353 QTc: 452 Interpretive Statements Normal sinus rhythm with PACs Early anterior R wave progression Nonspecific ST-T wave abnormalities Compared to prior tracing of 07/06/2019, early anterior R wave progression is new a and was quite delayed in the prior tracing Electronically Signed on 07-23-2019 8:35:23 EST by Sen Velez
[2019-07-23] MEDS ORDERED: LOMOTIL 2.5MG/0.025MG TABLET PO PRN (09:00)
[2019-07-23] MEDS: HumaLOG INSULIN (NovoLOG) PER UNIT SC SCH ×7 (10:03→20:37)
--- NOTE | 2019-07-23 11:02 | IPNPDOC ---
Date Seen The patient was seen on 07/23/19. Progress Note SUBJECTIVE: Patient seen and examined at the bedside this morning. She reports that she feels she still having trouble with speech. Otherwise she has no numbness, tingling, weakness in any of her extremities. OBJECTIVE: PHYSICAL EXAMINATION: VITAL SIGNS: Please see below. GENERAL APPEARANCE: Morbidly obese, Laying in bed, appears stated age, no acute distress, calm, cooperative HEENT: EOMI, left eye somewhat swollen, PERRLA, neck is supple with no thyromegaly or lymphadenopathy RESPIRATORY: There are decreased breath sounds bilaterally and expiration greater than inspiration, no adventitious breath sounds can be appreciated CARDIOVASCULAR: no JVD, RRR, no murmurs/rubs/gallops ABDOMEN: Soft, obese, nontender to palpation in all four quadrants, no masses/organomegaly, positive bowel sounds EXTREMITIES: no clubbing, cyanosis or edema noted NEUROLOGICAL: Cranial nerves II through XII appear to be intact, although there is questionable left sided facial droop versus swelling. Strength is 5/5 in UE and LE PSYCHIATRIC: normal mood/affect Skin: No rashes or ulcers. LN: No significant cervical or inguinal lymphadenopathy LABORATORY DATA, IMAGING STUDIES, MICROBIOLOGY: Please see below. Echocardiogram: pending Previous ECHO (07/07/19): Left atrial size upper limits of normal to mildly dilated with grade 1 LV diastolic dysfunction and elevated mean left atrial pressure. LVEF 65% MRI BRAIN W/O CONTRAST (07/22/19): FINDINGS: Brain: There are scattered foci of the restricted diffusion within the both cerebral hemispheres. Specifically, these involves the bilateral middle cerebral artery territories. Restricted diffusion is present along the left insula, the adjacent lateral left frontoparietal junction, the posterolateral left frontal lobe, the lateral right frontoparietal junction, and the right centrum semiovale. Corresponding decreased signal on the ADC map and increased T2 signal is present. The findings are consistent with acute to subacute infarcts. There is no hemorrhagic conversion. No mass effect or midline shift is present. Scattered increased T2 and FLAIR signal within the periventricular and subcortical white matter is present. This is nonspecific but likely related to chronic microangiopathic ischemic change. Ventricles: No hydrocephalus. Bones/joints: Unremarkable. Soft tissues: Unremarkable. Sinuses: Mucosal thickening is present in the sphenoid and right maxillary sinuses. Mastoid air cells: Normal as visualized. No mastoid effusion. Orbits: Unremarkable. IMPRESSION: Acute/subacute bilateral cerebral infarcts. An embolic source from the heart or aortic arch should be considered. DVT prophylaxis ordered?: H ASSESSMENT AND PLAN: This is a 59-year-old female with history of recent CVA, DM 2, dyslipidemia, who presented with dysarthria found to have bilateral subacute embolic CVA. She is admitted for further stroke workup at this time. PROBLEMS: 1. CVA (embolic): patient was outside of the time frame of tPA-eligibility at the time of presentation (~30h after symptoms started) -Presenting symptoms somewhat resolved this morning, as patient is not having obvious dysarthria and neuro exam is non-focal -Echo pending. Most recent echo performed on 07/07/19 did not demonstrate PFO or other explainable reason for embolic origin. She has no history of atrial fibrillation. - Will need to have BRIANA peformed; and likely Loop recorder; case discussed with Dr. Benjamin - will be scheduled for Friday - Platelet function assay ordered -Patient passed bedside swallow study. OK to start diet this AM -PT/OT/Speech eval ordered -Continue ASA; increased to 325 -Neurology consulted. Appreciate recommendations. 2. DM2, diagnosed on last hospitalization. A1c 10.9%. Patient has not yet followed up with PCP for medicatoin management -Consistent carbohydrate diet -SSI with hypoglycemic protocol -Levemir 18U QHS for now. Will adjust as needed to determine new home dose 3. Hypertension: BP within 140s-150s systolic thus far. Will continue to monitor -Continue Clonidine patch, Lisinopril 4. Anemia, likely 2/2 iron deficiency: -Will need to arrange for colonoscopy outpatient -Will start iron supplementation at discharge 5. Chronic pain/Fibromyalgia: -Continue Cymbalta, Lyrica, Naproxen, Robaxin 6. Mood disorder/Anxiety: -Continue Atarax, Xanax, Prozac DVT PPx: SQH DISPOSITION: pending neurology consultation and clinical improvement. This patient likely suffers from polypharmacy in regards to her chronic pain/anxiety meds and this will need to be addressed by her PCP after discharge. VS, I&O, 24H, Fishbone Vital Signs/I&O Vital Signs Date Time Temp Pulse Resp B/P (MAP) Pulse Ox O2 Delivery O2 Flow Rate FiO2 1/3/20 08:00 97.8 96 18 152/82 (105) 96 Room Air Laboratory Data 24H LABS Laboratory Tests 2 07/22/19 16:35: Immature Granulocyte % (Auto) 0.4, Neutrophils (%) (Auto) 62.7, Lymphocytes (%) (Auto) 27.9, Monocytes (%) (Auto) 5.1H, Eosinophils (%) (Auto) 3.3H, Basophils (%) (Auto) 0.6, Neutrophils # (Auto) 7.0, Lymphocytes # (Auto) 3.1, Monocytes # (Auto) 0.6, Eosinophils # (Auto) 0.4, Basophils # (Auto) 0.1, Nucleated Red Blood Cells % (auto) 0.0, Anion Gap 12, Glomerular Filtration Rate > 60.0, Calcium Level 8.8, Iron Level 31L, Total Iron Binding Capacity 416, Transferrin % Saturation 7.5L, Ferritin 6L 07/22/19 16:41: Prothrombin Time 12.6, Prothromb Time International Ratio 0.97, Activated Partial Thromboplast Time 30.8 07/22/19 21:54: Bedside Glucose (Misc Panel) 193H 07/23/19 07:25: Bedside Glucose (Misc Panel) 253H CBC/BMP Laboratory Tests 07/22/19 16:35 GME ATTESTATION GME ATTESTATION My faculty preceptor for this patient encounter was physically present during the encounter and was fully available. All aspects of the patient interview, examination, medical decision making process, and medical care plan development were reviewed and approved by the faculty preceptor. The faculty preceptor is aware and concurs with the plan as stated in the body of this note and will attest to such by his/her cosignature. ATTENDING NOTE I, Timothy Salas, have independently examined this patient and performed my own physical exam, as well as reviewed the documentation and edited where necessary. I have discussed in detail with the resident / student the findings and plan of treatment as documented by the resident / student and edited their note. I agree with their findings and treatment plan and have edited their documentation. I will continue to follow the patient during this hospital stay. GRISELDA CHRISTIE MD Jul 23, 2019 11:02 TIMOTHY SALAS MD Jul 23, 2019 16:21
[2019-07-23 11:30] LABS: BASO # 0.1 10^3/uL (0.0-0.2); BASO % 0.5 % (0.0-1.0); EOS # 0.3 10^3/uL (0.0-0.5); EOS % 3.4 % (0.0-3.0); HEMATOCRIT 34.9 % (36.0-47.0); HEMOGLOBIN 10.3 g/dl (12.0-15.5); LYMPH # 2.5 10^3/uL (1.5-5.0); MEAN CORPUSCULAR HEMOGLOBIN 20.2 pg (27.0-33.0); MEAN CORPUSCULAR HGB CONC 29.5 g/dl (32.0-36.5); MEAN CORPUSCULAR VOLUME 68.3 fl (80.0-96.0); MONO # 0.7 10^3/uL (0.0-0.8); MONO % 6.4 % (0.0-5.0); NEUTROPHILS # 6.5 10^3/uL (1.5-8.5); NEUTROPHILS % 64.3 % (36.0-66.0); PLATELET COUNT, AUTOMATED 407 10^3/uL (150-450); RED BLOOD COUNT 5.11 10^6/uL (4.00-5.40); WHITE BLOOD COUNT 10.1 10^3/uL (4.0-10.0)
[2019-07-23] MEDS ORDERED: ISOVUE-370 76% 100ML VIAL (Q9967) As Ordered ONE (11:37)
[2019-07-23 11:59] LABS: ALBUMIN 3.4 GM/DL (3.2-5.2); ALT/SGPT 38 U/L (12-78); BILIRUBIN,TOTAL 0.3 MG/DL (0.2-1.0); BLOOD UREA NITROGEN 5 MG/DL (7-18); CARBON DIOXIDE LEVEL 27 MEQ/L (21-32); CHLORIDE LEVEL 102 MEQ/L (98-107); CHOLESTEROL LEVEL 147 MG/DL (<200); CHOLESTEROL RISK RATIO 4.741 (<5); CREATININE FOR GFR 0.73 MG/DL (0.55-1.30); GLOMERULAR FILTRATION RATE > 60.0 (>51); GLUCOSE, FASTING 270 MG/DL (70-100); HDL CHOLESTEROL 31 MG/DL (>40); LDL CHOLESTEROL 64 MG/DL (<100); NON-HDL-C 116 MG/DL; POTASSIUM SERUM 3.8 MEQ/L (3.5-5.1); SODIUM LEVEL 136 MEQ/L (136-145); TOTAL PROTEIN 6.8 GM/DL (6.4-8.2); TRIGLYCERIDES LEVEL 260 MG/DL (<150)
[2019-07-23] MEDS ORDERED: SLF 3 ML SYR IV PRN (12:00)
[2019-07-23 12:35] VITALS: BP 143/85
--- NOTE | 2019-07-23 13:10 | REP ---
Clinical: Embolic stroke . Technique: Axial contrast enhanced images from the thoracic inlet to the upper abdomen using 75 ml Isovue 370 intravenous contrast material with multiplanar re-formations. Comparison: 04/25/2019 Findings: Satisfactory enhancement of the pulmonary vasculature is achieved and no filling defects are identified to suggest pulmonary embolus. Further evaluation of the mediastinum demonstrates normal thoracic aorta, heart and pericardium. The bilateral lung plasencia are without consolidation, pleural effusion or pneumothorax. Tracheobronchial tree is patent. No nodule or mass lesion is identified. Right hilar adenopathy is minimally improved. Surrounding musculoskeletal structures intact Impression: No evidence for pulmonary embolus. No acute mediastinal or pleural parenchymal process. Electronically Signed by Karan Monroy MD 07/23/2019 01:01 P
[2019-07-23] MEDS: SLF 3 ML SYR IV SCH ×2 (13:23→21:02)
[2019-07-23 16:00] VITALS: BP 152/74
[2019-07-23 16:15] LABS: COLLAGEN EPINEPHRINE 173 SECONDS (74-162)
[2019-07-23 16:35] LABS: COLLAGEN ADP 123 SECONDS (56-103)
[2019-07-23 20:00] VITALS: BP 156/78
[2019-07-23] MEDS ORDERED: SIMETHICONE 80 MG CHEW TAB PO PRN (20:15)
[2019-07-23] MEDS: LEVEMIR (INSULIN DETEMIR) 1 UNITS/0.01ML SC SCH (21:01)
[2019-07-24] VITALS: BP 146/81
[2019-07-24 04:00] VITALS: BP 141/85
[2019-07-24 05:42] LABS: HEMATOCRIT 35.5 % (36.0-47.0); HEMOGLOBIN 10.6 g/dl (12.0-15.5); MEAN CORPUSCULAR HEMOGLOBIN 20.4 pg (27.0-33.0); MEAN CORPUSCULAR HGB CONC 29.9 g/dl (32.0-36.5); MEAN CORPUSCULAR VOLUME 68.3 fl (80.0-96.0); PLATELET COUNT, AUTOMATED 412 10^3/uL (150-450); WHITE BLOOD COUNT 11.7 10^3/uL (4.0-10.0)
[2019-07-24 06:03] LABS: BLOOD UREA NITROGEN 5 MG/DL (7-18); CARBON DIOXIDE LEVEL 25 MEQ/L (21-32); CHLORIDE LEVEL 107 MEQ/L (98-107); CREATININE FOR GFR 0.53 MG/DL (0.55-1.30); GLOMERULAR FILTRATION RATE > 60.0 (>51); GLUCOSE, FASTING 186 MG/DL (70-100); POTASSIUM SERUM 3.5 MEQ/L (3.5-5.1); SODIUM LEVEL 141 MEQ/L (136-145)
[2019-07-24] MEDS: SLF 3 ML SYR IV SCH ×3 (06:10→21:58)
[2019-07-24] MEDS: HEPARIN SOD (PORCINE) 5000 UNITS/ML VIAL SC SCH ×3 (06:10→21:58)
[2019-07-24 07:32] VITALS: BP 122/66
[2019-07-24] MEDS ORDERED: HumaLOG INSULIN (NovoLOG) PER UNIT SC SCH (08:00)
[2019-07-24] MEDS: CALCIUM/VITAMIN D 500 MG TAB PO SCH ×2 (08:52→21:57)
[2019-07-24] MEDS: DULoxetine 30 MG CAP (CYMBALTA) PO SCH (08:53)
[2019-07-24] MEDS: NAPROXEN 250 MG TAB PO SCH ×2 (08:53→21:56)
[2019-07-24] MEDS: CLOPIDOGREL 75 MG TAB PO SCH (08:54)
[2019-07-24] MEDS: PREGABALIN 75 MG CAP(LYRICA) PO SCH ×3 (08:54→21:57)
[2019-07-24] MEDS: OMEPRAZOLE 20 MG CAP PO SCH (08:54)
[2019-07-24] MEDS: METHOCARBAMOL 500 MG TAB PO SCH ×4 (08:54→21:57)
[2019-07-24] MEDS: MONTELUKAST 10 MG TAB PO SCH (08:54)
[2019-07-24] MEDS: FLUoxetine 20 MG CAP PO SCH (08:54)
[2019-07-24] MEDS: hydrOXYzine 10 MG TAB PO SCH ×3 (08:55→21:57)
[2019-07-24] MEDS: lisinopriL 10 MG TAB PO SCH (08:55)
[2019-07-24] MEDS: HumaLOG INSULIN (NovoLOG) PER UNIT SC SCH ×5 (08:56→21:00)
[2019-07-24] MEDS ORDERED: ASPIRIN 81 MG CHEW TABLET PO SCH (09:00)
[2019-07-24] MEDS: oxyCODONE 5MG TAB PO PRN ×2 (09:07→17:12)
--- NOTE | 2019-07-24 10:04 | IPNPDOC ---
Date Seen The patient was seen on 07/24/19. Progress Note SUBJECTIVE: Patient seen and examined at the bedside this morning. She has worked with physical therapy and feels she is back at her baseline. She states her speech is getting better. She denies any numbness/weakness/loss of sensation. Her gait is stable. OBJECTIVE: PHYSICAL EXAMINATION: VITAL SIGNS: Please see below. GENERAL APPEARANCE: Morbidly obese, Sitting on the edge of the bed, appears stated age, no acute distress, calm, cooperative HEENT: EOMI, left eye somewhat swollen, PERRLA, neck is supple with no thyromegaly or lymphadenopathy RESPIRATORY: There are decreased breath sounds bilaterally and expiration greater than inspiration, no adventitious breath sounds can be appreciated CARDIOVASCULAR: no JVD, RRR, no murmurs/rubs/gallops ABDOMEN: Soft, obese, nontender to palpation in all four quadrants, no masses/organomegaly, positive bowel sounds EXTREMITIES: no clubbing, cyanosis or edema noted NEUROLOGICAL: Cranial nerves II through XII appear to be intact, Strength is 5/5 in UE and LE, Sensation is intact, all reflexes are brisk PSYCHIATRIC: normal mood/affect Skin: No rashes or ulcers. LN: No significant cervical or inguinal lymphadenopathy LABORATORY DATA, IMAGING STUDIES, MICROBIOLOGY: Please see below. Echocardiogram: pending Previous ECHO (07/07/19): Left atrial size upper limits of normal to mildly dilated with grade 1 LV diastolic dysfunction and elevated mean left atrial pressure. LVEF 65% MRI BRAIN W/O CONTRAST (07/22/19): FINDINGS: Brain: There are scattered foci of the restricted diffusion within the both cerebral hemispheres. Specifically, these involves the bilateral middle cerebral artery territories. Restricted diffusion is present along the left insula, the adjacent lateral left frontoparietal junction, the posterolateral left frontal lobe, the lateral right frontoparietal junction, and the right centrum semiovale. Corresponding decreased signal on the ADC map and increased T2 signal is present. The findings are consistent with acute to subacute infarcts. There is no hemorrhagic conversion. No mass effect or midline shift is present. Scattered increased T2 and FLAIR signal within the periventricular and subcortical white matter is present. This is nonspecific but likely related to chronic microangiopathic ischemic change. Ventricles: No hydrocephalus. Bones/joints: Unremarkable. Soft tissues: Unremarkable. Sinuses: Mucosal thickening is present in the sphenoid and right maxillary sinuses. Mastoid air cells: Normal as visualized. No mastoid effusion. Orbits: Unremarkable. IMPRESSION: Acute/subacute bilateral cerebral infarcts. An embolic source from the heart or aortic arch should be considered. DVT prophylaxis ordered?: [facility] ASSESSMENT AND PLAN: This is a 59-year-old female with history of recent CVA, DM 2, dyslipidemia, who presented with dysarthria found to have bilateral subacute embolic CVA. She is admitted for further stroke workup at this time. PROBLEMS: 1. CVA (embolic): patient was outside of the time frame of tPA-eligibility at the time of presentation (~30h after symptoms started) -Presenting symptoms somewhat resolved this morning, as patient is not having obvious dysarthria and neuro exam is non-focal -Most recent echo performed on 07/07/19 did not demonstrate PFO or other explainable reason for embolic origin. She has no history of atrial fibrillation. -Will need to have BRIANA performed; and likely Loop recorder; case discussed with Dr. Benjamin - will be scheduled for Friday -Platelet function assay ordered, demonstrated possible increased activity of Plt/collagen and ADP. As such, switched to Plavix -Patient passed bedside swallow study. Continue consistent carb diet -PT/OT/Speech eval ordered -Neurology consulted. Appreciate recommendations. 2. DM2, diagnosed on last hospitalization. A1c 10.9%. Patient has not yet followed up with PCP for medicatoin management -Consistent carbohydrate diet -SSI with hypoglycemic protocol -Levemir increased to 20U, + 10U Lispro with meals 3. Hypertension: BP within 140s-150s systolic thus far. Will continue to monitor -Continue Clonidine patch, Lisinopril 4. Anemia, likely 2/2 iron deficiency: -Will need to arrange for colonoscopy outpatient -Will start iron supplementation at discharge 5. Chronic pain/Fibromyalgia: -Continue Cymbalta, Lyrica, Naproxen, Robaxin 6. Mood disorder/Anxiety: -Continue Atarax, Xanax, Prozac DVT PPx: H DISPOSITION: Pending BRIANA. VS, I&O, 24H, Fishbone Vital Signs/I&O Vital Signs Date Time Temp Pulse Resp B/P (MAP) Pulse Ox O2 Delivery O2 Flow Rate FiO2 07/24/19 09:07 18 07/24/19 08:55 122/66 07/24/19 07:32 97.0 95 91 Room Air I&O- Last 24 Hours up to 6 AM 07/24/19 06:00 Intake Total 1480 ml Output Total 1200 ml Balance 280 ml Laboratory Data 24H LABS Laboratory Tests 2 07/23/19 11:18: Immature Granulocyte % (Auto) 0.4, Neutrophils (%) (Auto) 64.3, Lymphocytes (%) (Auto) 25.0, Monocytes (%) (Auto) 6.4H, Eosinophils (%) (Auto) 3.4H, Basophils (%) (Auto) 0.5, Neutrophils # (Auto) 6.5, Lymphocytes # (Auto) 2.5, Monocytes # (Auto) 0.7, Eosinophils # (Auto) 0.3, Basophils # (Auto) 0.1, Nucleated Red Blood Cells % (auto) 0.0, Anion Gap 7L, Glomerular Filtration Rate > 60.0, Calcium Level 9.0, Total Bilirubin 0.3, Aspartate Amino Transf (AST/SGOT) 44H, Alanine Aminotransferase (ALT/SGPT) 38, Alkaline Phosphatase 79, Total Protein 6.8, Albumin 3.4, Albumin/Globulin Ratio 1.00, Triglycerides Level 260H, Total Cholesterol 147, LDL Cholesterol 64, Non-HDL Cholesterol (LDL + VLDL) 116, Total HDL Cholesterol 31L, Cholesterol/HDL Ratio 4.741 07/23/19 12:35: Bedside Glucose (Misc Panel) 327H 07/23/19 15:30: Platelet Func Collagen/Epinephrine 173H, Platelet Function Collagen/ADP 123H 07/23/19 16:43: Bedside Glucose (Misc Panel) 295H 07/23/19 20:03: Bedside Glucose (Misc Panel) 246H 07/24/19 05:19: Nucleated Red Blood Cells % (auto) 0.0, Anion Gap 9, Glomerular Filtration Rate > 60.0, Calcium Level 9.0 CBC/BMP Laboratory Tests 07/23/19 11:18 07/24/19 05:19 GME ATTESTATION GME ATTESTATION My faculty preceptor for this patient encounter was physically present during the encounter and was fully available. All aspects of the patient interview, examination, medical decision making process, and medical care plan development were reviewed and approved by the faculty preceptor. The faculty preceptor is aware and concurs with the plan as stated in the body of this note and will attest to such by his/her cosignature. ATTENDING NOTE I, Timothy Salas, have independently examined this patient and performed my own physical exam, as well as reviewed the documentation and edited where necessary. I have discussed in detail with the resident / student the findings and plan of treatment as documented by the resident / student and edited their note. I agree with their findings and treatment plan and have edited their documentation. I will continue to follow the patient during this hospital stay. GRISELDA CHRISTIE MD Jul 24, 2019 10:04 TIMOTHY SALAS MD Jul 24, 2019 13:14
--- NOTE | 2019-07-24 10:54 | CR ---
DATE OF CONSULTATION: 07/23/2019 REQUESTING PROVIDER: Timothy Corado MD REASON FOR CONSULTATION: New-onset stroke. The patient is a 59-year-old female who was admitted to [facility] recently in June of 2019 with symptoms of slurred speech, found to have a faintly positive MRI suggesting right middle cerebral artery (MCA) territorial ischemic stroke. The patient's symptoms resolved. She was placed on aspirin 81 mg therapy. She was placed on statin therapy and asked to quit smoking. She was noted to have hemoglobin A1c above 10 and was offered insulin. However, the patient declined. The patient was sent home. The patient continued to take aspirin 81 mg every day and cut back her cigarettes down to 3-6 cigarettes a day. She presented with recurrence of slurred speech. The patient had difficulty communicating and trouble figuring out what to say and what to test. The patient had difficulty spelling her last name. This was ongoing for the last few days. The patient did not complain of any weakness in the arms or legs. She does have baseline chronic neck pain and low back pain with history of sciatica. The patient was brought to [facility], where a head CT did not show any acute stroke. MRI was requested given the change in neurological status, which ended up showing acute to subacute bilateral hemispheric strokes thought to be embolic. MRI reading radiologist recommended further workup, including at the aortic arch. CT angiogram of the chest was obtained, which showed normal aorta as per the radiologist. At the present time, the patient feels her speech is not quite normal. The patient will have her aspirin increased to 325 mg daily, and a transesophageal echocardiogram will be planned. The patient had a recent transthoracic echocardiogram, which did not reveal any significant abnormalities and revealed a normal ejection fraction (EF) of 65%. We will go ahead and check a platelet function today to assess for any aspirin resistance. If present, then will switch to Plavix 75 mg daily. Carotid arteries via ultrasound in late June showed less than 50% stenosis bilaterally. MR angiogram of the head did not reveal any significant abnormalities as per the report. My own interpretation reveals that there may be some distal branches of the right MCA artery missing, suggesting distal occlusion consistent with stroke. A second-opinion read with our neuroradiologist has been recommended. SOCIAL HISTORY: The patient is a current smoker. Denies use of any alcohol presently but has drank socially in the past. Denies use of any recreational drugs. FAMILY HISTORY: The patient's father and sisters with ischemic strokes. REVIEW OF SYSTEMS: Fourteen-point review of systems obtained and is negative except as per history of present illness (HPI). ALLERGIES: CYCLOBENZAPRINE. HOME MEDICATIONS: Alogliptin 25 mg by mouth daily, anastrozole 1 mg by mouth nightly, calcium carbonate, clonidine 0.1 mg patch weekly, dicyclomine 20 mg by mouth four times a day, duloxetine 60 mg by mouth daily, fluoxetine 20 mg by mouth daily, glyburide/metformin 5/500 mg two tablets by mouth twice a day, hydroxyzine 10 mg by mouth three times a day, lisinopril 10 mg by mouth daily, methocarbamol 500 mg by mouth four times a day, montelukast 10 mg by mouth daily, naproxen 500 mg by mouth twice a day, omeprazole 40 mg by mouth daily, Lyrica 200 mg by mouth nightly, simvastatin 80 mg by mouth nightly, zolpidem 5 mg by mouth nightly, aspirin 81 mg by mouth daily. As-needed medicines include albuterol, azelastine, metoclopramide, oxycodone, and diphenoxylate HCl/atropine. PHYSICAL EXAMINATION: Blood pressure is 143/85, pulse rate is 107, respiratory rate is 22, oxygenation is 96% on room air, temperature is 96.2 degrees Fahrenheit, current height 5 feet 6 inches, current weight is 114 pounds. The patient is awake, alert, oriented to person, place, and time. Speech, language, comprehension, repetition are intact. There is no dysarthria on examination. Pupils are 3 mm, round, react to light. Extraocular movements are intact in all directions without nystagmus. Sensation in V1, V2, V3 is intact to light touch. No facial asymmetry to activation. Palate elevates symmetrically. Tongue is midline. No weakness of sternocleidomastoids bilaterally. The patient does have weakness in bilateral triceps, 4+ on the right, 4 on the left. Biceps and handgrip appear to be 5s. Iliopsoas bilaterally are 4+. Quadriceps are 5/5. Tibialis anterior in the right is a 4+. On the left is a 5. Sensory is intact to light touch in all four extremities. Coordination: Normal [id number] without any gross ataxia or dysmetria. Romberg testing completed and is negative. Gait is normal. ASSESSMENT: A 59-year-old female with recurring bilateral ischemic strokes. Rule out cardioembolic source. Cannot entirely exclude vessel to vessel disease. PLAN: 1. Increase aspirin to 325 mg daily. Check platelet function assay. If aspirin resistance is present, switch to Plavix 75 mg daily. Continue simvastatin 80 mg by mouth daily. Optimize hypertension, hyperlipidemia, and diabetes. 2. Obtain transesophageal echocardiogram. Plan for loop recorder placement for long-term evaluation of possible atrial fibrillation (AFib). Smoking cessation counseling provided to the patient. The patient is agreeable to quit completely the use of tobacco at this time. Physical therapy (PT)/occupational therapy (OT) evaluation. The patient does demonstrate weakness in the triceps and in right ankle dorsiflexion. The patient has longstanding history of chronic neck and back pain with radicular pain in the limbs. Suggest electromyelogram (EMG) nerve conduction study to be set up as an outpatient for further evaluation. History obtained from both the patient and the patient's .
[2019-07-24 12:00] VITALS: BP 122/72
[2019-07-24 16:25] VITALS: BP 131/59
[2019-07-24 20:00] VITALS: BP 136/79
[2019-07-24] MEDS: ATORVASTATIN 20 MG TAB PO SCH (21:56)
[2019-07-24] MEDS: LEVEMIR (INSULIN DETEMIR) 1 UNITS/0.01ML SC SCH (21:57)
[2019-07-24] MEDS: QUEtiapine FUMARATE 200 MG TAB PO SCH (21:57)
[2019-07-24] MEDS: zolPIDEM TARTRATE 5 MG TAB PO SCH (21:57)
[2019-07-25] MEDS: oxyCODONE 5MG TAB PO PRN ×3 (01:37→21:59)
[2019-07-25 05:57] LABS: HEMATOCRIT 33.5 % (36.0-47.0); HEMOGLOBIN 9.9 g/dl (12.0-15.5); MEAN CORPUSCULAR HEMOGLOBIN 20.4 pg (27.0-33.0); MEAN CORPUSCULAR HGB CONC 29.6 g/dl (32.0-36.5); MEAN CORPUSCULAR VOLUME 68.9 fl (80.0-96.0); PLATELET COUNT, AUTOMATED 389 10^3/uL (150-450); RED BLOOD COUNT 4.86 10^6/uL (4.00-5.40); WHITE BLOOD COUNT 10.5 10^3/uL (4.0-10.0)
[2019-07-25 06:00] VITALS: BP 110/69
[2019-07-25] MEDS: HEPARIN SOD (PORCINE) 5000 UNITS/ML VIAL SC SCH ×3 (06:06→21:57)
[2019-07-25] MEDS: SLF 3 ML SYR IV SCH ×3 (06:06→22:00)
[2019-07-25 06:28] LABS: BLOOD UREA NITROGEN 11 MG/DL (7-18); CALCIUM LEVEL 8.4 MG/DL (8.5-10.1); CARBON DIOXIDE LEVEL 27 MEQ/L (21-32); CHLORIDE LEVEL 106 MEQ/L (98-107); CREATININE FOR GFR 0.59 MG/DL (0.55-1.30); GLOMERULAR FILTRATION RATE > 60.0 (>51); GLUCOSE, FASTING 207 MG/DL (70-100); POTASSIUM SERUM 3.6 MEQ/L (3.5-5.1); SODIUM LEVEL 140 MEQ/L (136-145)
[2019-07-25] MEDS: OMEPRAZOLE 20 MG CAP PO SCH (09:25)
[2019-07-25] MEDS: NAPROXEN 250 MG TAB PO SCH ×2 (09:26→22:00)
[2019-07-25] MEDS: FLUoxetine 20 MG CAP PO SCH (09:26)
[2019-07-25] MEDS: lisinopriL 10 MG TAB PO SCH (09:26)
[2019-07-25] MEDS: METHOCARBAMOL 500 MG TAB PO SCH ×4 (09:26→22:00)
[2019-07-25] MEDS: CALCIUM/VITAMIN D 500 MG TAB PO SCH ×2 (09:27→21:59)
[2019-07-25] MEDS: MONTELUKAST 10 MG TAB PO SCH (09:27)
[2019-07-25] MEDS: CLOPIDOGREL 75 MG TAB PO SCH (09:27)
[2019-07-25] MEDS: DULoxetine 30 MG CAP (CYMBALTA) PO SCH (09:27)
[2019-07-25] MEDS: PREGABALIN 75 MG CAP(LYRICA) PO SCH ×3 (09:27→21:59)
[2019-07-25] MEDS: hydrOXYzine 10 MG TAB PO SCH ×3 (09:45→21:59)
[2019-07-25] MEDS: HumaLOG INSULIN (NovoLOG) PER UNIT SC SCH ×4 (09:47→21:00)
--- NOTE | 2019-07-25 13:04 | IPNPDOC ---
Text Note Date of Service The patient was seen on 07/25/19. NOTE Subjective: Patient was seen and examined at the bedside. . They report that they have not expensively events overnight. Denies any chest pain, shortness breath or palpitations. Denied nausea, vomiting, abdominal pain, constipation or diarrhea. Objective: Vitals (See below) General: Lying in bed, no acute distress, comfortable, AAOx3 HEENT: NC, AT CVS: RRR, +S1S2 Lungs: Fair air entry b/l, -w/r/r Abdomen: Soft, ND, NT Extremities: - Edema, - Calf tenderness Imaging: Previous ECHO (07/07/19): Left atrial size upper limits of normal to mildly dilated with grade 1 LV diastolic dysfunction and elevated mean left atrial pressure. LVEF 65% CT brain 07/21/19: No acute intracranial process. MRI BRAIN W/O CONTRAST (07/22/19): Acute/subacute bilateral cerebral infarcts. An embolic source from the heart or aortic arch should be considered. CTA chest 07/23: No evidence for pulmonary embolus. No acute mediastinal or pleural parenchymal process. Assessment and plan: 59-year-old female with history of recent CVA, DM 2, dyslipidemia, who presented with dysarthria found to have bilateral subacute embolic CVA. She is admitted for further stroke workup at this time. Acute ischemic CVA - likely 2/2 embolic etiology - Clinically patient has had resolution of her symptoms - Given findings on imaging; patient is at high suspicion of embolic phenomenon - c/w PT / OT / Speech therapy - Will continue with telemetry monitoring; no events reported at this time - Neurology on consultation; we appreciate their input - Case has been discussed with cardiology who will take patient for t ransesophageal echocardiogram morning; possible placement of loop recorder IDDM2 - Patient was diagnosed with diabetes and prior hospitalization; A1c is 10.9% - c/w Levemir and ISS - Patient is poorly compliant with medications and diet - Continue with diabetic education; will consult dietitian HTN - s/p Permissive HTN - BP remains well controlled - c/w Lisinopril and Clonidine path Anemia - likely 2/2 iron deficiency - Patient's Hg has remained stable - No requirement for transfusions - Will need colonoscopy upon discharge; will give referral - c/w Iron supplementation Chronic pain / Fibromyalgia: - c/w CymbaltaMindia, Naproxen, Robaxin Mood disorder / Anxiety - c/w Atarax, Xanax, Prozac GI prophylaxis - c/w DVT prophylaxis - c/w heparin Disposition: - Patient with a transesophageal echocardiogram tomorrow morning VS,Fishbone, I+O VS, Fishbone, I+O Laboratory Tests 07/25/19 05:09 Vital Signs Date Time Temp Pulse Resp B/P (MAP) Pulse Ox O2 Delivery O2 Flow Rate FiO2 07/25/19 09:26 110/69 07/25/19 06:00 98.4 91 17 91 Room Air I&O- Last 24 Hours up to 6 AM 07/25/19 06:00 Intake Total 600 ml Output Total 300 ml Balance 300 ml ELIOT SALAS MD Jul 25, 2019 13:04
[2019-07-25 14:00] VITALS: BP 141/81
[2019-07-25] MEDS ORDERED: hydrOXYzine 25 MG TAB PO ONE (15:15)
[2019-07-25] MEDS: ATORVASTATIN 20 MG TAB PO SCH (21:57)
[2019-07-25] MEDS: QUEtiapine FUMARATE 200 MG TAB PO SCH (21:59)
[2019-07-25] MEDS: zolPIDEM TARTRATE 5 MG TAB PO SCH (21:59)
[2019-07-25] MEDS: LEVEMIR (INSULIN DETEMIR) 1 UNITS/0.01ML SC SCH (21:59)
[2019-07-25 22:00] VITALS: BP 134/84
[2019-07-26 05:56] LABS: HEMATOCRIT 34.9 % (36.0-47.0); MEAN CORPUSCULAR HGB CONC 28.7 g/dl (32.0-36.5); MEAN CORPUSCULAR VOLUME 69.9 fl (80.0-96.0); PLATELET COUNT, AUTOMATED 375 10^3/uL (150-450); RED BLOOD COUNT 4.99 10^6/uL (4.00-5.40); WHITE BLOOD COUNT 10.7 10^3/uL (4.0-10.0)
[2019-07-26 06:00] VITALS: BP 132/87
[2019-07-26] MEDS: SLF 3 ML SYR IV SCH ×2 (06:19→14:00)
[2019-07-26] MEDS: HEPARIN SOD (PORCINE) 5000 UNITS/ML VIAL SC SCH ×2 (06:19→15:35)
[2019-07-26 06:24] LABS: BLOOD UREA NITROGEN 8 MG/DL (7-18); CALCIUM LEVEL 8.6 MG/DL (8.5-10.1); CARBON DIOXIDE LEVEL 27 MEQ/L (21-32); CHLORIDE LEVEL 104 MEQ/L (98-107); CREATININE FOR GFR 0.55 MG/DL (0.55-1.30); GLOMERULAR FILTRATION RATE > 60.0 (>51); GLUCOSE, FASTING 165 MG/DL (70-100); POTASSIUM SERUM 3.4 MEQ/L (3.5-5.1); SODIUM LEVEL 138 MEQ/L (136-145)
[2019-07-26] MEDS: HumaLOG INSULIN (NovoLOG) PER UNIT SC SCH ×3 (07:30→17:00)
[2019-07-26] MEDS ORDERED: POTASSIUM CHLORIDE 10 MEQ SR TABLET PO ONE (08:00)
[2019-07-26] MEDS: OMEPRAZOLE 20 MG CAP PO SCH (09:21)
[2019-07-26] MEDS: oxyCODONE 5MG TAB PO PRN (09:22)
[2019-07-26] MEDS: MONTELUKAST 10 MG TAB PO SCH (09:22)
[2019-07-26 09:23] VITALS: BP 131/80
[2019-07-26] MEDS: CALCIUM/VITAMIN D 500 MG TAB PO SCH (09:23)
[2019-07-26] MEDS: lisinopriL 10 MG TAB PO SCH (09:23)
[2019-07-26] MEDS: CLOPIDOGREL 75 MG TAB PO SCH (09:23)
[2019-07-26] MEDS: DULoxetine 30 MG CAP (CYMBALTA) PO SCH (09:24)
[2019-07-26] MEDS: hydrOXYzine 10 MG TAB PO SCH ×2 (09:24→15:35)
[2019-07-26] MEDS: NAPROXEN 250 MG TAB PO SCH (09:24)
[2019-07-26] MEDS: PREGABALIN 75 MG CAP(LYRICA) PO SCH ×2 (09:24→15:35)
[2019-07-26] MEDS: METHOCARBAMOL 500 MG TAB PO SCH ×3 (09:24→15:35)
[2019-07-26] MEDS: FLUoxetine 20 MG CAP PO SCH (09:25)
[2019-07-26] MEDS ORDERED: CLOP75TA2 PO (09:33)
[2019-07-26] MEDS ORDERED: INSUDET SC (09:33)
[2019-07-26] MEDS ORDERED: ATOR1TAB21 PO (09:33)
[2019-07-26] MEDS ORDERED: ALCOPAD25 TOP (09:35)
[2019-07-26] MEDS ORDERED: INSU1MIS20 SC (09:35)
[2019-07-26] MEDS ORDERED: PEN1MIS21 SC (11:55)
[2019-07-26] MEDS ORDERED: BASA100I SC (11:55)
[2019-07-26] MEDS ORDERED: LIDOCAINE 2% INJ 100 MG/5 ML SDV (FOR ANES.) As Ordered ONE (13:15)
[2019-07-26] MEDS ORDERED: PROPOFOL 200 MG/20 ML VIAL As Ordered ONE ×2 (13:15→14:27)
[2019-07-26] MEDS ORDERED: CETACAINE SPRAY 5GM As Ordered ONE (13:33)
[2019-07-26] MEDS ORDERED: LIDOCAINE VISCOUS 2% SOLN 15ML UDC As Ordered ONE (13:33)
--- NOTE | 2019-07-26 13:35 | DS.PDOC ---
Discharge Summary General Date of Admission Jul 22, 2019 at 19:15 Date of Discharge July 26, 2019 Attending Physician: ELIOT SALAS MD Specialist/Consultants Involve: ROGELIO MCNEIL MD Discharge Summary PROCEDURES PERFORMED DURING STAY: [None]. ADMITTING DIAGNOSES: 1. Subacute CVA DISCHARGE DIAGNOSES: 1. Subacute CVA 2/2 embolic origin COMPLICATIONS/CHIEF COMPLAINT: CVA. HISTORY OF PRESENT ILLNESS: This is a 59 old female who presents to the hospital with her who reports that this afternoon his appeared to be confused; specifically, she had difficulties communicating, getting her words out, had problems texting, and had problems spelling her last name. She has had these symptoms off and on for the last few days. The patient's denies noticing slurred speech, or a change in the way her face appears. The patient denies having weakness in her hands or legs, denies having paresthesias, denies having difficulty swallowing, denies falling, denies having headache, denies having dizziness, denies having chest pain, denies having palpitations. HOSPITAL COURSE: Patient was found to have acute/subacute bilateral cerebral infarcts on MRI and was admitted for further workup to illicit embolic etiology. She was admitted to the PCU on telemetry with PT, OT, neurology consult in place. Cardiology was also consulted for possible BRIANA and loop recorder. The patient's platelet assay was checked and she was switched from current daily aspirin to Plavix secondary to elevated platelet function, collagen/epinephrine and ADP activity. The patient's only neurologic deficits on admission were dysarthria and possible left-sided weakness. These symptoms improved by Hospital day #2. She passed PT/OT and bedside swallow evaluation. On Hospital day #5 the patient underwent BRIANA and was subsequently discharged with plan to follow up with Cardiology outpatient for possible loop recorder and and with neurology for CVA care. DISCHARGE MEDICATIONS: Please see below. ALLERGIES: Please see below. PHYSICAL EXAMINATION ON DISCHARGE: VITAL SIGNS: Please see below. GENERAL APPEARANCE: Morbidly obese, Sitting on the edge of the bed, appears stated age, no acute distress, calm, cooperative HEENT: EOMI, left eye somewhat swollen, PERRLA, neck is supple with no thyromegaly or lymphadenopathy RESPIRATORY: There are decreased breath sounds bilaterally and expiration greater than inspiration, no adventitious breath sounds can be appreciated CARDIOVASCULAR: no JVD, RRR, no murmurs/rubs/gallops ABDOMEN: Soft, obese, nontender to palpation in all four quadrants, no masses/organomegaly, positive bowel sounds EXTREMITIES: no clubbing, cyanosis or edema noted NEUROLOGICAL: Cranial nerves II through XII appear to be intact, Strength is 5/5 in UE and LE, Sensation is intact, all reflexes are brisk PSYCHIATRIC: normal mood/affect Skin: No rashes or ulcers. LN: No significant cervical or inguinal lymphadenopathy LABORATORY DATA: Please see below. IMAGING: CT ANGIOGRAPHY CHEST (07/23/2019): Findings: Satisfactory enhancement of the pulmonary vasculature is achieved and no filling defects are identified to suggest pulmonary embolus. Further evaluation of the mediastinum demonstrates normal thoracic aorta, heart and pericardium. The bilateral lung plasencia are without consolidation, pleural effusion or pneumothorax. Tracheobronchial tree is patent. No nodule or mass lesion is identified. Right hilar adenopathy is minimally improved. Surrounding musculoskeletal structures intact Impression: No evidence for pulmonary embolus. No acute mediastinal or pleural parenchymal process. CT HEAD (07/22/2019): Findings: There is no acute intracranial hemorrhage, acute cortical infarction, mass effect or hydrocephalous. Volume loss is present. Impression: No acute intracranial process. MRI BRAIN W/O CONTRAST (07/22/19): FINDINGS: Brain: There are scattered foci of the restricted diffusion within the both cerebral hemispheres. Specifically, these involves the bilateral middle cerebral artery territories. Restricted diffusion is present along the left insula, the adjacent lateral left frontoparietal junction, the posterolateral left frontal lobe, the lateral right frontoparietal junction, and the right centrum semiovale. Corresponding decreased signal on the ADC map and increased T2 signal is present. The findings are consistent with acute to subacute infarcts. There is no hemorrhagic conversion. No mass effect or midline shift is present. Scattered increased T2 and FLAIR signal within the periventricular and subcortical white matter is present. This is nonspecific but likely related to chronic microangiopathic ischemic change. Ventricles: No hydrocephalus. Bones/joints: Unremarkable. Soft tissues: Unremarkable. Sinuses: Mucosal thickening is present in the sphenoid and right maxillary sinuses. Mastoid air cells: Normal as visualized. No mastoid effusion. Orbits: Unremarkable. IMPRESSION: Acute/subacute bilateral cerebral infarcts. An embolic source from the heart or aortic arch should be considered. PROGNOSIS: fair ACTIVITY: [As tolerated]. DIET: as tolerated DISCHARGE PLAN: home DISPOSITION: . DISCHARGE INSTRUCTIONS: 1. Home with follow up with Cardiology and Neurology ITEMS TO FOLLOWUP ON ON OUTPATIENT: 1. None DISCHARGE CONDITION: [Stable]. TIME SPENT ON DISCHARGE: Greater than 30 minutes. Vital Signs/I&Os Vital Signs Date Time Temp Pulse Resp B/P (MAP) Pulse Ox O2 Delivery O2 Flow Rate FiO2 07/26/19 09:52 16 07/26/19 09:23 131/80 07/26/19 06:00 98.4 96 93 Room Air I&O- Last 24 Hours up to 6 AM 07/26/19 06:00 Intake Total 1680 ml Output Total 0 ml Balance 1680 ml Laboratory Data Labs 24H Laboratory Tests 2 07/25/19 16:36: Bedside Glucose (Misc Panel) 243H 07/25/19 20:49: Bedside Glucose (Misc Panel) 241H 07/26/19 05:17: Nucleated Red Blood Cells % (auto) 0.0, Anion Gap 7L, Glomerular Filtration Rate > 60.0, Calcium Level 8.6 07/26/19 11:40: Bedside Glucose (Misc Panel) 252H CBC/BMP Laboratory Tests 07/26/19 05:17 FSBS Laboratory Tests Test 07/25/19 16:36 07/25/19 20:49 07/26/19 11:40 Range/Units Bedside Glucose (Misc Panel) 243 241 252 70-105 MG/DL Discharge Medications Scheduled Alogliptin Benzoate (Alogliptin) 25 Mg Tab, 25 MG PO DAILY, (Reported) Anastrozole (Anastrozole) 1 Mg Tab, 1 MG PO QHS, (Reported) Atorvastatin Calcium (Atorvastatin Calcium) 20 Mg Tablet, 80 MG PO QHS Calcium Carbonate/Vitamin D3 ([place] 500-Vit D3 200 Tablet) 1 Tab Tab, 1 TAB PO BID, (Reported) Clonidine (Clonidine) 0.1 Mg Patch.tdwk, 0.1 MG TOP QWEEK, (Reported) WEDNESDAYS - PATCH WAS REMOVED BY ED ON 07/22/2019 Clopidogrel Bisulfate (Clopidogrel) 75 Mg Tablet, 75 MG PO DAILY Dicyclomine HCl (Dicyclomine HCl) 20 Mg Tablet, 20 MG PO QID, (Reported) Duloxetine Hcl (Duloxetine HCl) 60 Mg Capsule.dr, 60 MG PO DAILY, (Reported) 1300 Fluoxetine Hcl (Fluoxetine HCl) 20 Mg Capsule, 20 MG PO DAILY, (Reported) TAKES AT 1300 Glyburide/Metformin HCl (Glyburide-Metformin 5-500 mg) 1 Tab Tab, 2 TAB PO BID, (Reported) Hydroxyzine HCl (Hydroxyzine HCl) 10 Mg Tab, 10 MG PO TID, (Reported) Insulin Glargine,Hum.rec.anlog (Basaglar Kwikpen U-100) 100 Unit/1 Ml Insuln.pen, 20 UNIT SC DAILY Vial / Pen Lisinopril (Lisinopril) 10 Mg Tab, 10 MG PO DAILY, (Reported) TAKES AT 1300 Methocarbamol (Methocarbamol) 500 Mg Tab, 500 MG PO QID, (Reported) Montelukast Sodium (Montelukast Sodium) 10 Mg Tab, 10 MG PO DAILY, (Reported) TAKES AT 1300 Naproxen (Naproxen) 500 Mg Tablet.dr, 500 MG PO BID, (Reported) Omeprazole (Omeprazole) 40 Mg Cap, 40 MG PO DAILY, (Reported) TAKES AT 1300 Pregabalin (Lyrica) 150 Mg Cap, 150 MG PO TID, (Reported) Quetiapine Fumarate (Quetiapine Fumarate) 200 Mg Tablet, 200 MG PO QHS, (Reported) Simvastatin (Zocor) 80 Mg Tab, 80 MG PO QHS, (Reported) Zolpidem Tartrate (Ambien) 5 Mg Tab, 5 MG PO QHS, (Reported) Scheduled PRN Albuterol Sulfate (Albuterol Sulfate Hfa) 8.5 Gm Hfa.aer.ad, 2 PUFFS INH QID PRN for SHORTNESS OF BREATH, (Reported) Azelastine HCl (Azelastine HCl) 0.15% [place].pump, 2 SPRAY NARES BID PRN for ALLERGIES, (Reported) Diphenoxylate HCl/Atropine (Lomotil 2.5-0.025 mg Tablet) 1 Each Tablet, 1 TAB PO DAILY PRN for DIARRHEA, (Reported) Metoclopramide HCl (Metoclopramide HCl) 10 Mg Tablet, 10 MG PO Q8H PRN for NAUSEA, (Reported) Oxycodone Hcl (Oxycodone HCl) 15 Mg Tab, 15 MG PO Q8H PRN for PAIN, (Reported) Allergies Coded Allergies: cyclobenzaprine (Verified Adverse Reaction, Intermediate, depression, 10/22/18) GME ATTESTATION GME ATTESTATION My faculty preceptor for this patient encounter was physically present during the encounter and was fully available. All aspects of the patient interview, examination, medical decision making process, and medical care plan development were reviewed and approved by the faculty preceptor. The faculty preceptor is aware and concurs with the plan as stated in the body of this note and will attest to such by his/her cosignature. GME ATTESTATION GME ATTESTATION My faculty preceptor for this patient encounter was physically present during the encounter and was fully available. All aspects of the patient interview, examination, medical decision making process, and medical care plan development were reviewed and approved by the faculty preceptor. The faculty preceptor is aware and concurs with the plan as stated in the body of this note and will attest to such by his/her cosignature. GRISELDA CHRISTIE MD Jul 26, 2019 13:35
[2019-07-26] MEDS ORDERED: MIDAZOLAM INJ 2 MG/2 ML VIAL (J2250) As Ordered ONE (13:53)
[2019-07-26] MEDS ORDERED: ONDANSETRON 4MG/2ML VIAL (J2405) IV PRN (15:00)
[2019-07-26] MEDS ORDERED: METOCLOPRAMIDE INJ 10MG/2ML VIAL (J2765) IV PRN (15:00)
[2019-07-26] MEDS ORDERED: LR 1,000 ML IV SCH (15:00)
--- NOTE | 2019-07-26 15:16 | T-ECHO ---
DATE OF PROCEDURE: 07/26/2019 REFERRING PHYSICIAN: Dr. Timothy Corado INDICATION: Cryptogenic stroke. PREPROCEDURE DIAGNOSIS: Cryptogenic stroke. POSTPROCEDURE DIAGNOSIS: Cryptogenic stroke. PRINCIPAL FINDINGS: Suspicious for patent foramen ovale, but this cannot be definitively proven with multiple bubble study injections. Mild aortic valve sclerosis. PROCEDURE PERFORMED: Transesophageal echocardiogram with bubble study. PROCEDURE PERFORMED BY: Duarte Benjamin MD MACHINE WHITENER: None. IV SEDATION: Propofol IV per HEALTH CARE ATTORNEY. COMPLICATIONS: None. PROCEDURE DESCRIPTION: Patient received viscous Lidocaine to gargle. She received Propofol IV for sedation, administered by the HEALTH CARE ATTORNEY. Esophageal intubation was accomplished by Dr. Benjamin without difficulty using a Jc three-dimensional transesophageal echocardiogram probe. Rhythm was sinus. The left and right ventricles appeared normal in size and systolic function. No intracardiac masses or thrombi. No vegetations on any of the cardiac valves. No pericardial effusion. The atrial septum was suspicious for patent foramen ovale, but this could not be definitively proven by color flow Doppler or by bubble study. Numerous bubble injections were performed using a mixture of Propofol, normal saline and 1 to 2 mL of air, which were syringed back and forth across a three-way stopcock to agitate the mixture. It was difficult to get a full Valsalva maneuver release because the patient had sedation. The intensity of the bubbles appearing in the right atrium was fairly weak, which reduces the sensitivity of the study for detection of patent foramen ovale. No bubbles were seen across the atrial septum. Aortic valve was three-cusp and displayed mild focal thickening and focal calcific deposits. No aortic regurgitation. The mitral, tricuspid and pulmonic valves were all structurally and functionally normal. The distal aortic arch and descending thoracic aorta were normal. CONCLUSIONS: 1. Suspicious for presence of a patent foramen ovale but could not be definitively proven despite multiple bubble injections. 2. Normal left and right ventricle systolic function. Left ventricular ejection fraction of 65% by visual estimate. 3. Normal appearing distal aortic arch and descending thoracic aorta. 4. Mild aortic valve sclerosis. No aortic regurgitation. ADDITIONAL COMMENTS AND RECOMMENDATIONS: In the absence of severe atherosclerotic disease to account for this patient's cryptogenic stroke, this patient would likely be better protected with warfarin (PT/INR 2.0 to 3.0) rather than antiplatelet agents. This was discussed with Dr. Timothy Corado by telephone, along the results of the study upon completion of the TE. Suggest additional further workup with outpatient implantation of an implantable loop recorder and this was also discussed with Dr. Timothy Corado. I suggest outpatient referral to me so that an implantable loop recorder can be planned electively as an outpatient. If the implanted loop recorder is nondiagnostic for detection of atrial fibrillation after six months, then consideration could be made for repeating the TE with bubble study electively as an outpatient, perhaps even performed with a central line to get better bubble study.
[2019-07-26 15:20] VITALS: BP 127/70
[2019-07-26] MEDS ORDERED: ENOX40IN3 SC (15:27)
[2019-07-26] MEDS ORDERED: JANT5TAB PO (15:45)
[2019-07-26] MEDS ORDERED: ENOX100I3 SC (15:45)
[2019-07-26 15:50] VITALS: BP 126/72
[2019-07-26] MEDS ORDERED: ENOXAPARIN 100MG/1ML SYRINGE (J1650) SC SCH (17:00)
== END 2019-07-26 18:16 | disposition home health service (06) | DRG 45 ==
LOC: M ED 16:23 → M ED INP 19:15 → ENRESERV 07-23 03:03 → M PCU 07-23 04:00 → M MSPAV 07-24 16:22
PROVIDERS: ADMIT Internal Medicine; ATTEND Internal Medicine
PROC: B246ZZ4 Ultrasonography of Right and Left Heart, Transesophageal (ICD-10-PCS; principal; 2019-07-26 14:00)
DX: I63.40 Cerebral infarction due to embolism of unspecified cerebral artery (principal); I10 Essential (primary) hypertension; E11.9 Type 2 diabetes mellitus without complications; D50.9 Iron deficiency anemia, unspecified; E78.5 Hyperlipidemia, unspecified; Z68.36 Body mass index [BMI] 36.0-36.9, adult; Z79.899 Other long term (current) drug therapy; Z79.4 Long term (current) use of insulin; Z88.8 Allergy status to other drugs, medicaments and biological substances; F17.200 Nicotine dependence, unspecified, uncomplicated; Z85.3 Personal history of malignant neoplasm of breast; M79.7 Fibromyalgia; K21.9 Gastro-esophageal reflux disease without esophagitis; E66.9 Obesity, unspecified; F41.9 Anxiety disorder, unspecified; F39 Unspecified mood [affective] disorder

== ENCOUNTER → 2019-07-28 | Outpatient (REF) | payer OTHER ==
[~2019-07-28] MED LIST changes: +ALCOPAD25 TOP; +ATOR1TAB21 PO; +BASA100I SC; +CLOP75TA2 PO; +DULO1CAP6 PO; +ENOX100I3 SC; +ENOX40IN3 SC; +INSU1MIS20 SC; +INSUDET SC; +JANT5TAB PO; +PEN1MIS21 SC
[2019-07-28 16:01] LABS: INR 1.04; PROTHROMBIN TIME 13.3 SECONDS (11.8-14.0)
== END ==
LOC: M LAB REF 15:19
PROVIDERS: ATTEND Internal Medicine
DX: Z79.01 Long term (current) use of anticoagulants (principal)

== ENCOUNTER → 2019-08-02 | Outpatient (REF) | payer OTHER ==
[~2019-08-02] MED LIST changes: -GLIM2TAB2 PO; +GLIM2TAB4 PO; -OXYB10TA2 PO; +OXYB10TA23 PO
[2019-08-02 15:18] LABS: PROTHROMBIN TIME 22.4 SECONDS (11.8-14.0)
== END ==
LOC: M SHH 14:28
PROVIDERS: ATTEND Family Medicine
DX: Z79.01 Long term (current) use of anticoagulants (principal)

== ENCOUNTER → 2019-08-09 | Outpatient (REF) | payer OTHER ==
[2019-08-09 14:05] LABS: INR 2.18; PROTHROMBIN TIME 24.1 SECONDS (11.8-14.0)
== END ==
LOC: M SHH 13:12
PROVIDERS: ATTEND Family Medicine
DX: Z79.01 Long term (current) use of anticoagulants (principal)

== ENCOUNTER → 2019-08-16 | Outpatient (REF) | payer OTHER ==
[2019-08-16 12:10] LABS: INR 1.74; PROTHROMBIN TIME 20.1 SECONDS (11.8-14.0)
== END ==
LOC: M SHH 11:13
PROVIDERS: ATTEND Family Medicine
DX: Z79.01 Long term (current) use of anticoagulants (principal)

== ENCOUNTER → 2019-08-23 | Outpatient (REF) | payer OTHER ==
[~2019-08-23] MED LIST changes: +PLAV1TAB2 PO
[2019-08-23 14:04] LABS: INR 1.64; PROTHROMBIN TIME 19.2 SECONDS (11.8-14.0)
== END ==
LOC: M SHH 12:06
PROVIDERS: ATTEND Family Medicine
DX: Z79.01 Long term (current) use of anticoagulants (principal)

== ENCOUNTER 2019-08-26 12:19 | Day surgery (SDC) | payer OTHER ==
[~2019-08-26] VITALS: Ht 167.6 cm; Wt 101.2 kg
[~2019-08-26 12:19] MED LIST changes: +LR 1,000 ML IV ONE; -MONT10TA2 PO; +MONT10TA4 PO; +QUET100T2 PO; -QUET1TAB8 PO; +ceFAZolin SOD 2 GM in IV 1 EA IV ONE
[2019-08-26 13:26] LABS: INR 1.78; PROTHROMBIN TIME 20.5 SECONDS (11.8-14.0)
[2019-08-26 13:27] LABS: PARTIAL THROMBOPLASTIN TIME 38.5 SECONDS (25.0-38.4)
[2019-08-26] MEDS ORDERED: MIDAZOLAM INJ 2 MG/2 ML VIAL (J2250) As Ordered ONE (16:12)
[2019-08-26] MEDS ORDERED: propofoL 200 MG/20 ML VIAL As Ordered ONE (16:13)
[2019-08-26] MEDS ORDERED: LIDOCAINE 2% INJ 100 MG/5 ML SDV (FOR ANES.) As Ordered ONE (16:13)
[2019-08-26] MEDS ORDERED: fentaNYL 100 MCG/2 ML INJECTION (J3010) As Ordered ONE (16:13)
[2019-08-26] MEDS ORDERED: LIDOCAINE 1% SDV INJ 30 ML VIAL As Ordered ONE (16:25)
[2019-08-26] MEDS ORDERED: PHENYLephrine HCL 500 MCG/5 ML (100MCG/ML) SYRINGE (J2370) As Ordered ONE (17:01)
[2019-08-26] MEDS ORDERED: ePHEDrine SULFATE 25 MG/5 ML(5MG/ML) SYRINGE As Ordered ONE (17:01)
[2019-08-26 18:05] VITALS: BP 138/74
--- NOTE | 2019-08-26 18:08 | RO ---
DATE OF PROCEDURE: 08/26/2019 PREOPERATIVE DIAGNOSIS: Cryptogenic stroke. POSTOPERATIVE DIAGNOSIS: Cryptogenic stroke. FINDINGS: Cryptogenic stroke. PROCEDURE PERFORMED: Implantation of a [employer] implantable cardiac cath technologist. SURGEON: Dr. Benjamin CHIEF COMPLIANCE OFFICER: None. ANESTHESIA: Lidocaine 1% local/monitored anesthetic care. SPECIMENS: None. ESTIMATED BLOOD LOSS: Less than 1 mL. No blood products replaced. DRAINS: None. COMPLICATIONS: None. PROCEDURE DESCRIPTION: The patient was prepped and draped over the sternum and left anterior chest. Lidocaine 1% was used for local anesthetic. An incision approximately 1 cm in length was made with a #15 blade at approximately the left 4th interspace about 1 inch lateral to the left parasternal border. The insertion tool guide was placed into the incision and advanced in a caudal direction. The insertion tool was rotated 180 degrees and then the punch was used to insert the loop recorder into the subcutaneous tissue. This position was tested and was found to be borderline acceptable with R-wave slightly over 0.2 millivolts but with respiration frequently tipping below that threshold. I therefore pulled the loop recorder out and reloaded the insertion tool. I then went in through the same incision and placed the loop recorder by the same technique going in a left lateral direction. This resulted in R-waves of 1.37 millivolts. The incision was temporarily approximated with a 4-0 Biosyn suture, applied subcuticular with the free ends protruding a centimeter from either end of the incision line. Two layers of Dermabond was applied and then the 4-0 Biosyn suture was pulled through and removed entirely from the incision. The patient tolerated the procedure well without any immediate complications. The implantable cardiac cath technologist was a C2FO Reveal LINQ model LNQ11 with serial number [id number].
== END 2019-08-26 18:15 | disposition home or self-care (01) ==
LOC: M SDC 12:19
PROVIDERS: ATTEND Internal Medicine Cardiovascular Disease
DX: I63.9 Cerebral infarction, unspecified (principal); R94.31 Abnormal electrocardiogram [ECG] [EKG]; I11.9 Hypertensive heart disease without heart failure; E78.00 Pure hypercholesterolemia, unspecified; E11.9 Type 2 diabetes mellitus without complications; K21.9 Gastro-esophageal reflux disease without esophagitis; K58.9 Irritable bowel syndrome, unspecified; M19.90 Unspecified osteoarthritis, unspecified site; M51.9 Unspecified thoracic, thoracolumbar and lumbosacral intervertebral disc disorder; M79.7 Fibromyalgia; F41.9 Anxiety disorder, unspecified; F32.9 Major depressive disorder, single episode, unspecified; R32 Unspecified urinary incontinence; Z79.899 Other long term (current) drug therapy; Z79.4 Long term (current) use of insulin; Z79.02 Long term (current) use of antithrombotics/antiplatelets; Z79.891 Long term (current) use of opiate analgesic; Z85.3 Personal history of malignant neoplasm of breast; Z90.10 Acquired absence of unspecified breast and nipple; Z92.21 Personal history of antineoplastic chemotherapy; Z92.3 Personal history of irradiation; Z87.891 Personal history of nicotine dependence
CPT/HCPCS: 33285; 36415; 85610; 85730; C1764; J0690; J2250; J2370; J3010

== ENCOUNTER → 2019-08-30 | Outpatient (REF) | payer OTHER ==
[~2019-08-30] MED LIST changes: -LR 1,000 ML IV ONE; -ceFAZolin SOD 2 GM in IV 1 EA IV ONE
[2019-08-30 13:30] LABS: INR 1.59; PROTHROMBIN TIME 18.7 SECONDS (11.8-14.0)
== END ==
LOC: M SHH 12:07
PROVIDERS: ATTEND Family Medicine
DX: Z79.01 Long term (current) use of anticoagulants (principal)

== ENCOUNTER → 2019-09-06 | Outpatient (REF) | payer OTHER ==
[2019-09-06 13:13] LABS: INR 1.71; PROTHROMBIN TIME 19.8 SECONDS (11.8-14.0)
== END ==
LOC: M SHH 12:30
PROVIDERS: ATTEND Family Medicine
DX: Z79.01 Long term (current) use of anticoagulants (principal)

== ENCOUNTER → 2019-09-13 | Outpatient (REF) | payer OTHER ==
[2019-09-13 19:55] LABS: INR 2.26; PROTHROMBIN TIME 24.8 SECONDS (11.8-14.0)
== END ==
LOC: M SHH 19:30
PROVIDERS: ATTEND Family Medicine
DX: Z79.01 Long term (current) use of anticoagulants (principal)

== ENCOUNTER → 2019-09-20 | Outpatient (REF) | payer OTHER ==
[2019-09-20 14:31] LABS: INR 2.53; PROTHROMBIN TIME 27.1 SECONDS (11.8-14.0)
== END ==
LOC: M SHH 13:15
PROVIDERS: ATTEND Family Medicine
DX: Z79.01 Long term (current) use of anticoagulants (principal)

== ENCOUNTER → 2019-09-27 | Outpatient (REF) | payer OTHER ==
[2019-09-27 13:31] LABS: INR 2.95; PROTHROMBIN TIME 30.7 SECONDS (11.8-14.0)
[2019-09-27 13:50] LABS: MALB URINE SIEMENS 6.4 MG/L; MAU/CREAT RATIO 7.8 MCG/MG (0.0-30.0)
== END ==
LOC: M SHH 12:56
PROVIDERS: ATTEND Family Medicine
DX: Z79.01 Long term (current) use of anticoagulants (principal); E11.9 Type 2 diabetes mellitus without complications

== ENCOUNTER → 2019-10-04 | Outpatient (REF) | payer OTHER ==
[2019-10-04 14:59] LABS: INR 2.28; PROTHROMBIN TIME 24.9 SECONDS (11.8-14.0)
== END ==
LOC: M SHH 13:08
PROVIDERS: ATTEND Family Medicine
DX: Z79.01 Long term (current) use of anticoagulants (principal)

== ENCOUNTER → 2019-10-11 | Outpatient (REF) | payer OTHER ==
[2019-10-11 13:49] LABS: INR 3.2; PROTHROMBIN TIME 32.7 SECONDS (11.8-14.0)
== END ==
LOC: M SHH 13:28
PROVIDERS: ATTEND Family Medicine
DX: Z79.01 Long term (current) use of anticoagulants (principal)

== ENCOUNTER → 2019-10-18 | Outpatient (REF) | payer OTHER ==
[2019-10-18 15:01] LABS: INR 2.71; PROTHROMBIN TIME 28.6 SECONDS (11.8-14.0)
== END ==
LOC: M SHH 14:37
PROVIDERS: ATTEND Family Medicine
DX: Z79.01 Long term (current) use of anticoagulants (principal)

== ENCOUNTER → 2019-10-25 | Outpatient (REF) | payer OTHER ==
[2019-10-25 12:51] LABS: INR 2.7; PROTHROMBIN TIME 28.5 SECONDS (11.8-14.0)
== END ==
LOC: M LAB REF 12:21 → M SHH 12:21
PROVIDERS: ATTEND Family Medicine
DX: Z79.01 Long term (current) use of anticoagulants (principal)

== ENCOUNTER → 2019-11-01 | Outpatient (REF) | payer OTHER ==
[~2019-11-01] MED LIST changes: +OXYC-1 PO; -OXYC15TA76 PO
[2019-11-01 12:03] LABS: INR 3.06; PROTHROMBIN TIME 31.6 SECONDS (11.8-14.0)
== END ==
LOC: M SHH 11:36
PROVIDERS: ATTEND Family Medicine
DX: Z79.01 Long term (current) use of anticoagulants (principal)

== ENCOUNTER → 2019-11-08 | Outpatient (REF) | payer OTHER ==
[2019-11-08 14:46] LABS: INR 2.88
== END ==
LOC: M SHH 13:45
PROVIDERS: ATTEND Family Medicine
DX: Z51.81 Encounter for therapeutic drug level monitoring (principal); Z79.01 Long term (current) use of anticoagulants

== ENCOUNTER → 2020-02-02 | Outpatient (CLI) | payer OTHER ==
[~2020-02-02] MED LIST changes: -METF-791 PO; +METF-838 PO
[2020-02-02 15:51] LABS: INR 3.73
== END ==
LOC: M PLALAB 14:07
PROVIDERS: ATTEND Family Medicine
DX: Z51.81 Encounter for therapeutic drug level monitoring (principal); Z79.01 Long term (current) use of anticoagulants

== ENCOUNTER → 2020-02-24 | Outpatient (REF) | payer OTHER ==
[2020-03-24 23:00] LABS: INR 1.04; PROTHROMBIN TIME 13.9 SECONDS (11.8-14.0)
== END ==
LOC: M PLALAB 16:04
PROVIDERS: ATTEND Family Medicine
DX: Z79.01 Long term (current) use of anticoagulants (principal)

== ENCOUNTER → 2020-03-08 | Outpatient (CLI) | payer OTHER ==
[2020-03-08 16:23] LABS: INR 1.96; PROTHROMBIN TIME 22.8 SECONDS (11.8-14.0)
== END ==
LOC: M PLALAB 14:01
PROVIDERS: ATTEND Family Medicine
DX: Z79.01 Long term (current) use of anticoagulants (principal)

== ENCOUNTER → 2020-03-23 | Outpatient (CLI) | payer OTHER ==
[2020-03-23 16:19] LABS: INR 2.67; PROTHROMBIN TIME 29.1 SECONDS (11.8-14.0)
== END ==
LOC: M PLALAB 12:57
PROVIDERS: ATTEND Family Medicine
DX: Z79.01 Long term (current) use of anticoagulants (principal)

== ENCOUNTER → 2020-05-30 | Outpatient (CLI) | payer OTHER ==
[~2020-05-30] MED LIST changes: -DOK100TA PO; +DOK100TA2 PO; -MONT10TA4 PO; +MONT5TAB2 PO
[2020-05-30 17:43] LABS: BASO # 0.1 10^3/uL (0.0-0.2); BASO % 0.8 % (0.0-1.0); EOS # 0.4 10^3/uL (0.0-0.5); EOS % 4.5 % (0.0-3.0); HEMATOCRIT 36.3 % (36.0-47.0); HEMOGLOBIN 9.9 g/dl (12.0-15.5); LYMPH # 2.6 10^3/uL (1.5-5.0); LYMPH % 28.5 % (24.0-44.0); MEAN CORPUSCULAR HGB CONC 27.3 g/dl (32.0-36.5); MEAN CORPUSCULAR VOLUME 69.5 fl (80.0-96.0); MONO # 0.6 10^3/uL (0.0-0.8); MONO % 6.4 % (0.0-5.0); NEUTROPHILS # 5.4 10^3/uL (1.5-8.5); NEUTROPHILS % 59.4 % (36.0-66.0); PLATELET COUNT, AUTOMATED 491 10^3/uL (150-450); RED BLOOD COUNT 5.22 10^6/uL (4.00-5.40); WHITE BLOOD COUNT 9.2 10^3/uL (4.0-10.0)
[2020-05-30 17:56] LABS: INR 2.28; PROTHROMBIN TIME 25.6 SECONDS (12.5-14.3)
[2020-05-30 18:11] LABS: ALBUMIN 3.5 GM/DL (3.2-5.2); ALT/SGPT 52 U/L (12-78); BILIRUBIN,TOTAL 0.3 MG/DL (0.2-1.0); BLOOD UREA NITROGEN 6 MG/DL (7-18); CALCIUM LEVEL 8.8 MG/DL (8.5-10.1); CARBON DIOXIDE LEVEL 27 MEQ/L (21-32); CHLORIDE LEVEL 100 MEQ/L (98-107); CHOLESTEROL LEVEL 137 MG/DL (<200); CHOLESTEROL RISK RATIO 3.512 (<5); CREATININE FOR GFR 0.78 MG/DL (0.55-1.30); GLOMERULAR FILTRATION RATE > 60.0 (>51); GLUCOSE, FASTING 330 MG/DL (70-100); HDL CHOLESTEROL 39 MG/DL (>40); LDL CHOLESTEROL 53 MG/DL (<100); NON-HDL-C 98 MG/DL; POTASSIUM SERUM 4.6 MEQ/L (3.5-5.1); SODIUM LEVEL 136 MEQ/L (136-145); TRIGLYCERIDES LEVEL 225 MG/DL (<150)
[2020-05-30 18:20] LABS: CREATININE, URINE 57.6 MG/DL; CREATININE,RANDOM URINE 57.6 MG/DL; MALB URINE SIEMENS 30.7 MG/L; MAU/CREAT RATIO 53.2 MCG/MG (0.0-30.0)
== END ==
LOC: M PLALAB 14:44
PROVIDERS: ATTEND Family Medicine
DX: Z51.81 Encounter for therapeutic drug level monitoring (principal); Z79.01 Long term (current) use of anticoagulants; E11.9 Type 2 diabetes mellitus without complications; I10 Essential (primary) hypertension; E66.9 Obesity, unspecified

== ENCOUNTER → 2020-08-03 | Outpatient (CLI) | payer OTHER ==
[2020-08-03 16:15] LABS: INR 2.95; PROTHROMBIN TIME 31.4 SECONDS (12.5-14.3)
== END ==
LOC: M PLALAB 14:17
PROVIDERS: ATTEND Physician Assistant
DX: Z51.81 Encounter for therapeutic drug level monitoring (principal); Z79.01 Long term (current) use of anticoagulants

== ENCOUNTER → 2021-03-16 | Outpatient (CLI) | payer OTHER ==
[~2021-03-16] MED LIST changes: +ASPI-569 PO; -ASPI81TAEC PO; -LISI-542 PO; +LISI-898 PO; +LISI10TA22 PO; -LISI10TA4 PO; +METH-1164 PO; -METH1TAB40 PO; +MONT10TA10 PO; -MONT5TAB2 PO; +OMEP40CA4 PO; -OMEP40CA97 PO
[2021-03-16 13:57] LABS: HEMATOCRIT 29.1 % (36.0-47.0); HEMOGLOBIN 7.6 g/dl (12.0-15.5); MEAN CORPUSCULAR HEMOGLOBIN 17.2 pg (27.0-33.0); MEAN CORPUSCULAR HGB CONC 26.1 g/dl (32.0-36.5); MEAN CORPUSCULAR VOLUME 65.8 fl (80.0-96.0); PLATELET COUNT, AUTOMATED 473 10^3/uL (150-450); RED BLOOD COUNT 4.42 10^6/uL (4.00-5.40); WHITE BLOOD COUNT 10.3 10^3/uL (4.0-10.0)
[2021-03-16 14:30] LABS: PROTHROMBIN TIME 46.6 SECONDS (12.7-14.5)
[2021-03-16 14:32] LABS: INR 5.01
[2021-03-16 14:45] LABS: ALBUMIN 3.3 GM/DL (3.2-5.2); ALT/SGPT 41 U/L (12-78); BILIRUBIN,TOTAL 0.3 MG/DL (0.2-1.0); BLOOD UREA NITROGEN 7 MG/DL (7-18); CALCIUM LEVEL 8.7 MG/DL (8.5-10.1); CARBON DIOXIDE LEVEL 30 MEQ/L (21-32); CHLORIDE LEVEL 101 MEQ/L (98-107); CHOLESTEROL LEVEL 108 MG/DL (<200); CHOLESTEROL RISK RATIO 3.483 (<5); CREATININE FOR GFR 0.58 MG/DL (0.55-1.30); FERRITIN 5 NG/ML (8-252); GLOMERULAR FILTRATION RATE > 60.0 (>51); GLUCOSE, FASTING 187 MG/DL (70-100); HDL CHOLESTEROL 31 MG/DL (>40); IRON (FE) 17 UG/DL (50-170); LDL CHOLESTEROL 44 MG/DL (<100); MAGNESIUM LEVEL 1.6 MG/DL (1.8-2.4); NON-HDL-C 77 MG/DL; POTASSIUM SERUM 4.5 MEQ/L (3.5-5.1); SODIUM LEVEL 138 MEQ/L (136-145); TOTAL 25(OH) VITAMIN D 22.7 NG/ML (30.0-100.0); TRIGLYCERIDES LEVEL 163 MG/DL (<150); VITAMIN B12 LEVEL 454 PG/ML (247-911)
[2021-03-16 14:52] LABS: MALB URINE SIEMENS 44.2 MG/L; MAU/CREAT RATIO 18.5 MCG/MG (0.0-30.0)
== END ==
LOC: M PLALAB 11:44
PROVIDERS: ATTEND Nurse Practitioner Family
DX: E11.40 Type 2 diabetes mellitus with diabetic neuropathy, unspecified (principal); I10 Essential (primary) hypertension; E78.2 Mixed hyperlipidemia; K58.9 Irritable bowel syndrome, unspecified; Z79.01 Long term (current) use of anticoagulants

== ENCOUNTER → 2021-04-06 | Outpatient (CLI) | payer OTHER ==
[2021-04-06 15:51] LABS: APPEARANCE, URINE HAZY (CLEAR); BILIRUBIN, URINE AUTO NEGATIVE (NEGATIVE); BLOOD, URINE BLOOD NEGATIVE (NEGATIVE); COLOR, URINE YELLOW (YELLOW); GLUCOSE, URINE (UA) AUTO NEGATIVE (NEGATIVE); KETONE, URINE AUTO NEGATIVE (NEGATIVE); LEUKOCYTE ESTERASE, URINE AUTO TRACE (NEGATIVE); NITRITE, URINE AUTO NEGATIVE (NEGATIVE); PROTEIN, URINE AUTO NEGATIVE (NEGATIVE); SPECIFIC GRAVITY URINE AUTO 1.013 (1.002-1.035); UROBILINOGEN, URINE AUTO 0.2 mg/dL (0.0-2.0)
[2021-04-06 15:54] LABS: BACTERIA, URINE AUTO NEGATIVE (NEGATIVE); RBC, URINE AUTO 1 /HPF (0-3); SQUAMOUS EPITHELIAL CELL UR AU 4 /HPF (0-6); WBC, URINE AUTO 18 /HPF (0-3)
[2021-04-06 16:04] LABS: INR 3.81; PROTHROMBIN TIME 37.8 SECONDS (12.7-14.5)
== END ==
LOC: M PLALAB 13:00
PROVIDERS: ATTEND Nurse Practitioner Family
DX: R30.0 Dysuria (principal); Z79.01 Long term (current) use of anticoagulants

== ENCOUNTER → 2021-04-16 | Outpatient (CLI) | payer OTHER ==
[2021-04-16 14:15] LABS: INR 2.82
[2021-04-16 14:32] LABS: APPEARANCE, URINE HAZY (CLEAR); BACTERIA, URINE AUTO NEGATIVE (NEGATIVE); BILIRUBIN, URINE AUTO NEGATIVE (NEGATIVE); BLOOD, URINE BLOOD NEGATIVE (NEGATIVE); COLOR, URINE YELLOW (YELLOW); GLUCOSE, URINE (UA) AUTO 2+ mg/dL (NEGATIVE); KETONE, URINE AUTO NEGATIVE (NEGATIVE); LEUKOCYTE ESTERASE, URINE AUTO 2+ (NEGATIVE); MUCUS, URINE SMALL (NEGATIVE); NITRITE, URINE AUTO NEGATIVE (NEGATIVE); PROTEIN, URINE AUTO NEGATIVE (NEGATIVE); RBC, URINE AUTO 4 /HPF (0-3); SPECIFIC GRAVITY URINE AUTO 1.023 (1.002-1.035); SQUAMOUS EPITHELIAL CELL UR AU 4 /HPF (0-6); UROBILINOGEN, URINE AUTO 0.2 mg/dL (0.0-2.0); WBC, URINE AUTO 62 /HPF (0-3)
== END ==
LOC: M PLALAB 12:50
PROVIDERS: ATTEND Nurse Practitioner Family
DX: Z79.01 Long term (current) use of anticoagulants (principal); R30.0 Dysuria

== ENCOUNTER 2022-01-24 13:51 | Outpatient (CLI) | payer OTHER ==
[~2022-01-24 13:51] MED LIST changes: -CEFD1CAP8 PO; +CEFD300C41 PO; -CITA10TA5 PO; +CITA10TA7 PO; -CYMB60CA3 PO; +CYMB60CA4 PO; -DICY20TA11 PO; +DICY20TA20 PO; +FLUO-96 PO; -FLUO20CA20 PO; -LISI-898 PO; +LISI5TAB11 PO; -MONT10TA10 PO; +MONT10TA97 PO
[2022-01-24] MEDS ORDERED: NS 1,000 ML IV SCH (14:00)
[2022-01-24] MEDS ORDERED: FERRIC CARBOXYMALTOSE INJ 750 MG in NS 250 ML (>50kg) IV ONE ×3 (14:00)
[2022-01-24 14:28] VITALS: BP 174/77
[2022-01-24 15:30] VITALS: BP 162/78
== END 2022-01-24 15:30 | disposition home or self-care (01) ==
LOC: M INFU 13:51
PROVIDERS: ATTEND Nurse Practitioner Family
DX: D50.9 Iron deficiency anemia, unspecified (principal); Z88.8 Allergy status to other drugs, medicaments and biological substances
CPT/HCPCS: 96365; J1439

== ENCOUNTER 2022-01-31 13:15 | Outpatient (CLI) | payer OTHER ==
[~2022-01-31] VITALS: Ht 167.6 cm; Wt 113.6 kg
[2022-01-31 13:15] VITALS: BP 137/63
[2022-01-31] MEDS ORDERED: FERRIC CARBOXYMALTOSE INJ 750 MG in NS 250 ML (>50kg) IV ONE ×3 (13:30)
[2022-01-31 15:00] VITALS: BP 126/59
== END 2022-01-31 15:00 | disposition home or self-care (01) ==
LOC: M INFU 13:15
PROVIDERS: ATTEND Nurse Practitioner Family
DX: D50.9 Iron deficiency anemia, unspecified (principal); Z88.8 Allergy status to other drugs, medicaments and biological substances
CPT/HCPCS: 96365; J1439

== ENCOUNTER → 2022-06-05 | Outpatient (CLI) | payer OTHER ==
[~2022-06-05] MED LIST changes: +CLOP75TA99 PO; -DOXY-350 PO; +DOXY-444 PO; +GLYB-150 PO; -GLYB5TAB12 PO; -PLAV1TAB2 PO
== END ==
LOC: M WHC 14:17
PROVIDERS: ATTEND Physician Assistant
DX: Z87.442 Personal history of urinary calculi (principal)

== ENCOUNTER → 2022-09-12 | Outpatient (CLI) | payer OTHER ==
[2022-09-12 17:36] LABS: HEMATOCRIT 42.7 % (36.0-47.0); HEMOGLOBIN 13.6 g/dl (12.0-15.5); MEAN CORPUSCULAR HEMOGLOBIN 29.1 pg (27.0-33.0); MEAN CORPUSCULAR HGB CONC 31.9 g/dl (32.0-36.5); MEAN CORPUSCULAR VOLUME 91.4 fl (80.0-96.0); PLATELET COUNT, AUTOMATED 311 10^3/uL (150-450); RED BLOOD COUNT 4.67 10^6/uL (4.00-5.40); WHITE BLOOD COUNT 7.4 10^3/uL (4.0-10.0)
[2022-09-12 17:47] LABS: INR 1.67
[2022-09-12 17:59] LABS: IRON (FE) 44 UG/DL (50-170)
[2022-09-12 18:03] LABS: ALBUMIN 3.3 G/DL (3.2-5.2); ALKALINE PHOSPHATASE 83 U/L (46-116); ALT/SGPT 36 U/L (7.0-40); AST/SGOT 39 U/L (<34); BILIRUBIN,TOTAL 0.4 MG/DL (0.3-1.2); BLOOD UREA NITROGEN 8 MG/DL (9-23); CARBON DIOXIDE LEVEL 32 MMOL/L (20-31); CHLORIDE LEVEL 96 MMOL/L (98-107); CHOLESTEROL LEVEL 101 MG/DL (<200); CHOLESTEROL RISK RATIO 3.41 (<5); CREATININE FOR GFR 0.54 MG/DL (0.55-1.30); FERRITIN 26.4 NG/ML (7.3-270.7); GLOMERULAR FILTRATION RATE > 60.0 (>45); GLUCOSE, FASTING 284 MG/DL (74-106); HDL CHOLESTEROL 29.6 MG/DL (>40); HEMOGLOBIN A1c 9.6 % (4.0-6.0); LDL CHOLESTEROL 37.2 MG/DL (<100); MAGNESIUM LEVEL 1.6 MG/DL (1.8-2.4); NON-HDL-C 71 MG/DL; POTASSIUM SERUM 4.7 MMOL/L (3.5-5.1); SODIUM LEVEL 135 MMOL/L (136-145); TOTAL 25(OH) VITAMIN D 75.5 NG/ML (20.0-100.0); TOTAL PROTEIN 6.7 G/DL (5.7-8.2); TRIGLYCERIDES LEVEL 171 MG/DL (<150)
== END ==
LOC: M PLALAB 16:06
PROVIDERS: ATTEND Physician Assistant Medical
DX: Z79.01 Long term (current) use of anticoagulants (principal)

== ENCOUNTER → 2022-10-09 | Outpatient (CLI) | payer OTHER ==
[2022-10-09 15:56] LABS: INR 2.05; PROTHROMBIN TIME 23.5 SECONDS (12.5-14.5)
== END ==
LOC: M PLALAB 13:58
PROVIDERS: ATTEND Physician Assistant Medical
DX: Z79.01 Long term (current) use of anticoagulants (principal)

== ENCOUNTER → 2022-10-09 | Outpatient (REF) | payer OTHER ==
[2022-10-09 19:02] LABS: APPEARANCE, URINE HAZY (CLEAR); BACTERIA, URINE AUTO NEGATIVE (NEGATIVE); BILIRUBIN, URINE AUTO NEGATIVE (NEGATIVE); BLOOD, URINE BLOOD 3+ (NEGATIVE); COLOR, URINE YELLOW (YELLOW); GLUCOSE, URINE (UA) AUTO 3+ mg/dL (NEGATIVE); KETONE, URINE AUTO TRACE mg/dL (NEGATIVE); LEUKOCYTE ESTERASE, URINE AUTO NEGATIVE (NEGATIVE); MUCUS, URINE SMALL (NEGATIVE); NITRITE, URINE AUTO NEGATIVE (NEGATIVE); PROTEIN, URINE AUTO 1+ mg/dL (NEGATIVE); RBC, URINE AUTO 79 /HPF (0-3); SPECIFIC GRAVITY URINE AUTO 1.023 (1.002-1.035); SQUAMOUS EPITHELIAL CELL UR AU 5 /HPF (0-6); UROBILINOGEN, URINE AUTO 0.2 mg/dL (0.0-2.0); WBC, URINE AUTO 2 /HPF (0-3)
== END ==
LOC: M SMT 18:27
PROVIDERS: ATTEND Physician Assistant
DX: N32.81 Overactive bladder (principal)

== ENCOUNTER → 2022-10-16 | Outpatient (CLI) | payer OTHER ==
[2022-10-16 18:00] LABS: INR 2.62; PROTHROMBIN TIME 28.4 SECONDS (12.5-14.5)
== END ==
LOC: M PLALAB 15:20
PROVIDERS: ATTEND Physician Assistant Medical
DX: Z79.01 Long term (current) use of anticoagulants (principal)

== ENCOUNTER → 2022-11-01 | Outpatient (CLI) | payer OTHER ==
[2022-11-01 17:37] LABS: INR 1.99; PROTHROMBIN TIME 22.9 SECONDS (12.5-14.5)
== END ==
LOC: M PLALAB 15:45
PROVIDERS: ATTEND Physician Assistant Medical
DX: Z79.01 Long term (current) use of anticoagulants (principal)

== ENCOUNTER → 2023-01-13 | Outpatient (CLI) | payer OTHER ==
[2023-01-13 15:45] LABS: INR 1.25
== END ==
LOC: M PLALAB 13:37
PROVIDERS: ATTEND Physician Assistant Medical
DX: Z79.01 Long term (current) use of anticoagulants (principal)

== ENCOUNTER → 2023-02-05 | Outpatient (CLI) | payer OTHER ==
[2023-02-05 17:31] LABS: INR 2.96; PROTHROMBIN TIME 31.3 SECONDS (12.5-14.5)
== END ==
LOC: M PLALAB 14:51
PROVIDERS: ATTEND Physician Assistant Medical
DX: Z79.01 Long term (current) use of anticoagulants (principal)

== ENCOUNTER → 2023-02-26 | Outpatient (CLI) | payer OTHER ==
[2023-02-26 17:38] LABS: INR 4.18; PROTHROMBIN TIME 39.4 SECONDS (12.5-14.5)
== END ==
LOC: M PLALAB 14:23
PROVIDERS: ATTEND Physician Assistant Medical
DX: Z79.01 Long term (current) use of anticoagulants (principal)

== ENCOUNTER → 2023-03-13 | Outpatient (CLI) | payer OTHER ==
[2023-03-13 17:53] LABS: INR 1.9; PROTHROMBIN TIME 21.3 SECONDS (12.5-14.5)
== END ==
LOC: M PLALAB 15:46
PROVIDERS: ATTEND Physician Assistant Medical
DX: Z79.01 Long term (current) use of anticoagulants (principal)

== ENCOUNTER → 2023-03-31 | Outpatient (CLI) | payer OTHER ==
[2023-03-31 15:53] LABS: HEMATOCRIT 40.2 % (36.0-47.0); HEMOGLOBIN 12.6 g/dl (12.0-15.5); MEAN CORPUSCULAR HEMOGLOBIN 27.8 pg (27.0-33.0); MEAN CORPUSCULAR HGB CONC 31.3 g/dl (32.0-36.5); MEAN CORPUSCULAR VOLUME 88.5 fl (80.0-96.0); PLATELET COUNT, AUTOMATED 366 10^3/uL (150-450); RED BLOOD COUNT 4.54 10^6/uL (4.00-5.40); WHITE BLOOD COUNT 9.6 10^3/uL (4.0-10.0)
[2023-03-31 16:06] LABS: INR 4.33; PROTHROMBIN TIME 40.5 SECONDS (12.5-14.5)
[2023-03-31 16:19] LABS: ALBUMIN 3.4 G/DL (3.2-5.2); ALKALINE PHOSPHATASE 68 U/L (46-116); ALT/SGPT 29 U/L (7.0-40); AST/SGOT 28 U/L (<34); BILIRUBIN,TOTAL 0.4 MG/DL (0.3-1.2); BLOOD UREA NITROGEN 5 MG/DL (9-23); CALCIUM LEVEL 8.9 MG/DL (8.3-10.6); CARBON DIOXIDE LEVEL 31 MMOL/L (20-31); CHLORIDE LEVEL 100 MMOL/L (98-107); CHOLESTEROL LEVEL 99 MG/DL (<200); CHOLESTEROL RISK RATIO 3.17 (<5); CREATININE FOR GFR 0.51 MG/DL (0.55-1.30); GLOMERULAR FILTRATION RATE > 60.0 (>45); GLUCOSE, FASTING 160 MG/DL (74-106); HDL CHOLESTEROL 31.2 MG/DL (>40); IRON (FE) 23 UG/DL (50-170); LDL CHOLESTEROL 37.6 MG/DL (<100); MAGNESIUM LEVEL 1.6 MG/DL (1.8-2.4); NON-HDL-C 67.8 MG/DL; POTASSIUM SERUM 4.3 MMOL/L (3.5-5.1); SODIUM LEVEL 138 MMOL/L (136-145); TOTAL 25(OH) VITAMIN D 60.4 NG/ML (20.0-100.0); TOTAL PROTEIN 6.6 G/DL (5.7-8.2); TRIGLYCERIDES LEVEL 151 MG/DL (<150)
[2023-03-31 16:56] LABS: HEMOGLOBIN A1c 9.1 % (4.0-6.0)
== END ==
LOC: M PLALAB 13:55
PROVIDERS: ATTEND Physician Assistant Medical
DX: E11.40 Type 2 diabetes mellitus with diabetic neuropathy, unspecified (principal); E78.2 Mixed hyperlipidemia; I10 Essential (primary) hypertension; E55.9 Vitamin D deficiency, unspecified; D64.9 Anemia, unspecified; Z79.01 Long term (current) use of anticoagulants; M16.12 Unilateral primary osteoarthritis, left hip

== ENCOUNTER → 2023-04-10 | Outpatient (CLI) | payer OTHER ==
[2023-04-10 19:12] LABS: INR 2.37; PROTHROMBIN TIME 25.3 SECONDS (12.5-14.5)
== END ==
LOC: M PLALAB 16:28
PROVIDERS: ATTEND Physician Assistant Medical
DX: Z79.01 Long term (current) use of anticoagulants (principal)

== ENCOUNTER 2023-04-23 13:02 | Outpatient (CLI) | payer OTHER ==
[~2023-04-23] VITALS: Ht 167.6 cm; Wt 114.0 kg
[~2023-04-23 13:02] MED LIST changes: +FERRIC CARBOXYMALTOSE INJ 750 MG in NS 250 ML (>50kg) IV ONE
[2023-04-23 13:15] VITALS: BP 160/74; O2SAT 95
[2023-04-23 14:50] VITALS: BP 136/82; O2SAT 100
== END 2023-04-23 14:50 ==
LOC: M INFU 13:02
PROVIDERS: ATTEND Physician Assistant Medical
DX: D50.9 Iron deficiency anemia, unspecified (principal); Z88.8 Allergy status to other drugs, medicaments and biological substances
CPT/HCPCS: 96365; J1439

== ENCOUNTER → 2023-04-28 | Outpatient (CLI) | payer OTHER ==
[~2023-04-28] MED LIST changes: -FERRIC CARBOXYMALTOSE INJ 750 MG in NS 250 ML (>50kg) IV ONE
[2023-04-28 17:22] LABS: INR 2.33
== END ==
LOC: M PLALAB 15:27
PROVIDERS: ATTEND Physician Assistant Medical
DX: Z79.01 Long term (current) use of anticoagulants (principal)

== ENCOUNTER → 2023-05-13 | Outpatient (CLI) | payer OTHER ==
[~2023-05-13] MED LIST changes: -CEFD300C41 PO; +CEFD300C42 PO; +PEN-308 SC; -PEN1MIS21 SC
[2023-05-13 18:26] LABS: INR 3.06; PROTHROMBIN TIME 30.9 SECONDS (12.5-14.5)
== END ==
LOC: M PLALAB 16:09
PROVIDERS: ATTEND Physician Assistant Medical
DX: Z79.01 Long term (current) use of anticoagulants (principal)

== ENCOUNTER → 2023-07-04 | Outpatient (CLI) | payer OTHER ==
[~2023-07-04] MED LIST changes: +CEFD1CAP9 PO; -CEFD300C42 PO
[2023-07-04 17:59] LABS: INR 2.12
== END ==
LOC: M PLALAB 16:09
PROVIDERS: ATTEND Physician Assistant Medical
DX: Z79.01 Long term (current) use of anticoagulants (principal)

== ENCOUNTER → 2023-07-29 | Outpatient (REF) | payer OTHER ==
[2023-07-29 17:36] LABS: INR 3.4; PROTHROMBIN TIME 33.1 SECONDS (12.5-14.5)
== END ==
LOC: M LAB REF 16:53
PROVIDERS: ATTEND Physician Assistant Medical
DX: Z79.01 Long term (current) use of anticoagulants (principal)

== ENCOUNTER → 2023-08-15 | Outpatient (CLI) | payer OTHER ==
[2023-08-15 18:34] LABS: INR 3.25
== END ==
LOC: M PLALAB 15:53
PROVIDERS: ATTEND Physician Assistant Medical
DX: Z79.01 Long term (current) use of anticoagulants (principal)

== ENCOUNTER → 2023-09-15 | Outpatient (REF) | payer OTHER ==
[~2023-09-15] MED LIST changes: +ABIL1TAB11 PO; +ATOR80TA59 PO; +CLONI1TA PO; +FENT75DI29 TD; +FERR1TAB8 PO; +FLUTISP NARES; +MAGN400T33 PO; +TRUL0.5I SC; +WARF-22 PO; +WARF-60 PO
[2023-09-15 17:33] LABS: INR 2.49
== END ==
LOC: M LABDRAWP 16:47
PROVIDERS: ATTEND Physician Assistant Medical
DX: Z79.01 Long term (current) use of anticoagulants (principal)

== ENCOUNTER 2023-09-16 17:33 | Inpatient (IN) | payer OTHER ==
[~2023-09-16] VITALS: Ht 167.6 cm; Wt 114.6 kg
[~2023-09-16 17:33] MED LIST changes: -ABIL1TAB11 PO; -ATOR80TA59 PO; -CLONI1TA PO; -FENT75DI29 TD; -FERR1TAB8 PO; -FLUTISP NARES; -MAGN400T33 PO; -TRUL0.5I SC; -WARF-22 PO; -WARF-60 PO
[2023-09-16 20:50] LABS: BASO # 0.1 10^3/uL (0.0-0.2); BASO % 0.7 % (0.0-1.0); EOS # 0.3 10^3/uL (0.0-0.5); EOS % 4.6 % (0.0-3.0); HEMOGLOBIN 14.5 g/dl (12.0-15.5); LYMPH % 40.9 % (24.0-44.0); MEAN CORPUSCULAR HEMOGLOBIN 30.7 pg (27.0-33.0); MEAN CORPUSCULAR HGB CONC 33.7 g/dl (32.0-36.5); MEAN CORPUSCULAR VOLUME 90.9 fl (80.0-96.0); MONO # 0.7 10^3/uL (0.0-0.8); MONO % 9.8 % (2.0-8.0); NEUTROPHILS # 3.2 10^3/uL (1.5-8.5); NEUTROPHILS % 43.7 % (36.0-66.0); PLATELET COUNT, AUTOMATED 367 10^3/uL (150-450); RED BLOOD COUNT 4.73 10^6/uL (4.00-5.40); WHITE BLOOD COUNT 7.2 10^3/uL (4.0-10.0)
[2023-09-16 21:06] LABS: INR 2.54; PROTHROMBIN TIME 26.5 SECONDS (12.5-14.5)
[2023-09-16 21:31] LABS: CK-MB VALUE MASS 2.2 NG/ML (<3.6)
[2023-09-16 21:33] LABS: BLOOD UREA NITROGEN 6 MG/DL (9-23); CALCIUM LEVEL 8.8 MG/DL (8.3-10.6); CARBON DIOXIDE LEVEL 28 MMOL/L (20-31); CHLORIDE LEVEL 102 MMOL/L (98-107); CREATININE FOR GFR 0.53 MG/DL (0.55-1.30); GLOMERULAR FILTRATION RATE > 60.0 (>45); GLUCOSE, FASTING 76 MG/DL (74-106); POTASSIUM SERUM 4.1 MMOL/L (3.5-5.1); SODIUM LEVEL 136 MMOL/L (136-145)
[2023-09-16 21:37] LABS: CPK CREATINE PHOSPHOKINASE 712 U/L (34-145)
[2023-09-16 22:37] LABS: CK-MB VALUE MASS 2.1 NG/ML (<3.6)
[2023-09-16 22:39] LABS: MB/CK RELATIVE INDEX 0.32 (< OR =4); RSV AMPLIFICATION NEGATIVE (NEGATIVE)
[2023-09-17] MEDS ORDERED: CEPACOL LOZENGE PO PRN (00:35)
[2023-09-17] MEDS ORDERED: FLUTICASONE PROP 0.05% NASAL SPRAY 16 GM (FLONASE) NARES PRN (00:35)
[2023-09-17] MEDS ORDERED: DEXTROSE 50% 50ML SYRINGE IV PRN (00:55)
[2023-09-17] MEDS ORDERED: GLUCAGON INJ 1MG VIAL SC PRN (00:55)
[2023-09-17] MEDS ORDERED: GLUCOSE 4GM CHEW TABLET PO PRN (00:55)
[2023-09-17] MEDS ORDERED: FLUTISP NARES (01:05)
[2023-09-17] MEDS ORDERED: WARF-22 PO (01:05)
[2023-09-17] MEDS ORDERED: ATOR80TA59 PO (01:05)
[2023-09-17] MEDS ORDERED: CLONI1TA PO (01:05)
[2023-09-17] MEDS ORDERED: WARF-60 PO (01:05)
[2023-09-17] MEDS ORDERED: BASA100I SC (01:05)
[2023-09-17] MEDS ORDERED: FERR1TAB8 PO (01:19)
[2023-09-17] MEDS ORDERED: ABIL1TAB11 PO (01:19)
[2023-09-17] MEDS ORDERED: FENT75DI29 TD (01:19)
[2023-09-17] MEDS ORDERED: MAGN400T33 PO (01:19)
[2023-09-17] MEDS ORDERED: TRUL0.5I SC (01:19)
[2023-09-17] MEDS ORDERED: HOME MED LIST COMPLETE! XX SCH (01:20)
[2023-09-17] MEDS ORDERED: ALBUTEROL 90 MCG/ACT 8GM HFA INHALER INH PRN (01:25)
[2023-09-17] MEDS ORDERED: zolPIDEM TARTRATE 5 MG TAB PO PRN (01:25)
[2023-09-17 01:27] LABS: HEMOGLOBIN A1c 7.3 % (4.0-6.0)
[2023-09-17 01:30] LABS: CHOLESTEROL RISK RATIO 3.84 (<5); HDL CHOLESTEROL 27.3 MG/DL (>40); LDL CHOLESTEROL 54.5 MG/DL (<100); NON-HDL-C 77.7 MG/DL
[2023-09-17] MEDS: ACETAMINOPHEN *IV* 1,000 MG in IV 1 EA IV ONE (02:10)
[2023-09-17 02:57] VITALS: BP 161/74; TEMP 97.2; O2SAT 95
[2023-09-17] MEDS: oxyCODONE 5MG TAB PO PRN (03:49)
[2023-09-17] MEDS: fentaNYL 75 MCG/HR PATCH TD SCH (03:51)
[2023-09-17] MEDS: QUEtiapine FUMARATE 200 MG TAB PO SCH (04:05)
[2023-09-17] MEDS: ACETAMINOPHEN TAB 650MG DOSE (2X325MG) PO PRN (04:20)
[2023-09-17 07:27] VITALS: BP 122/61; O2SAT 96
[2023-09-17] MEDS: FENTANYL REMOVAL DOCUMENTATION MISC XX SCH (08:22)
[2023-09-17 09:04] LABS: BASO # 0.1 10^3/uL (0.0-0.2); BASO % 0.8 % (0.0-1.0); EOS # 0.4 10^3/uL (0.0-0.5); EOS % 6.2 % (0.0-3.0); HEMATOCRIT 40.2 % (36.0-47.0); HEMOGLOBIN 13.5 g/dl (12.0-15.5); LYMPH # 2.8 10^3/uL (1.5-5.0); MEAN CORPUSCULAR HEMOGLOBIN 30.3 pg (27.0-33.0); MEAN CORPUSCULAR HGB CONC 33.6 g/dl (32.0-36.5); MEAN CORPUSCULAR VOLUME 90.1 fl (80.0-96.0); MONO # 0.5 10^3/uL (0.0-0.8); MONO % 8.5 % (2.0-8.0); NEUTROPHILS # 2.4 10^3/uL (1.5-8.5); NEUTROPHILS % 39.3 % (36.0-66.0); PLATELET COUNT, AUTOMATED 322 10^3/uL (150-450); RED BLOOD COUNT 4.46 10^6/uL (4.00-5.40); WHITE BLOOD COUNT 6.2 10^3/uL (4.0-10.0)
[2023-09-17 09:06] VITALS: BP 122/61
[2023-09-17] MEDS: cloNIDine 0.1MG TABLET PO SCH (09:06)
[2023-09-17] MEDS: PREGABALIN 75 MG CAP(LYRICA) PO SCH (09:06)
[2023-09-17] MEDS: DULoxetine 30MG CAPSULE (CYMBALTA) PO SCH (09:07)
[2023-09-17] MEDS: INSULIN LISPRO (NovoLOG) PER UNIT SC SCH (09:09)
[2023-09-17 09:29] LABS: BLOOD UREA NITROGEN 7 MG/DL (9-23); CALCIUM LEVEL 8.7 MG/DL (8.3-10.6); CARBON DIOXIDE LEVEL 30 MMOL/L (20-31); CHLORIDE LEVEL 100 MMOL/L (98-107); CREATININE FOR GFR 0.53 MG/DL (0.55-1.30); GLOMERULAR FILTRATION RATE > 60.0 (>45); GLUCOSE, FASTING 112 MG/DL (74-106); POTASSIUM SERUM 3.3 MMOL/L (3.5-5.1); SODIUM LEVEL 138 MMOL/L (136-145)
[2023-09-17 10:30] VITALS: TEMP 98.1
[2023-09-17] MEDS: POTASSIUM CHLORIDE 10MEQ SR TABLET PO ONE (12:35)
[2023-09-17] MEDS ORDERED: OMEPRAZOLE 20MG CAP PO SCH (13:00)
[2023-09-17] MEDS ORDERED: MONTELUKAST 10 MG TAB PO SCH (13:00)
[2023-09-17] MEDS ORDERED: CLOPIDOGREL 75 MG TAB PO SCH (15:00)
[2023-09-17] MEDS ORDERED: WARFARIN SOD 3MG TAB PO SCH ×2 (17:00)
[2023-09-17] MEDS ORDERED: LEVEMIR (INSULIN DETEMIR) 1 UNITS/0.01ML SC SCH (21:00)
[2023-09-17] MEDS ORDERED: ATORVASTATIN 20 MG TAB PO SCH (21:00)
[2023-09-17] MEDS ORDERED: MAGNESIUM OXIDE 400MG TAB (MAG-OX) PO SCH (21:00)
[2023-09-17] MEDS ORDERED: INSULIN LISPRO (NovoLOG) PER UNIT SC SCH (21:00)
[2023-09-17] MEDS ORDERED: FERROUS SULFATE 325MG TAB PO SCH (21:00)
[2023-09-17] MEDS ORDERED: QUEtiapine FUMARATE 200 MG TAB PO SCH (21:00)
[2023-09-18] MEDS ORDERED: WARFARIN SOD 3MG TAB PO SCH (17:00)
== END 2023-09-17 12:57 | disposition home or self-care (01) | DRG 137 ==
LOC: M ED 17:33 → M ED INP 09-17 00:18 → M ICU 09-17 03:12
PROVIDERS: ADMIT Internal Medicine; ATTEND Internal Medicine Nephrology
DX: U07.1 COVID-19 (principal); G45.9 Transient cerebral ischemic attack, unspecified; Z86.73 Personal history of transient ischemic attack (TIA), and cerebral infarction without residual deficits; I48.91 Unspecified atrial fibrillation; Z79.01 Long term (current) use of anticoagulants; G47.00 Insomnia, unspecified; I10 Essential (primary) hypertension; F11.20 Opioid dependence, uncomplicated; F41.9 Anxiety disorder, unspecified; F32.A Depression, unspecified; Z85.3 Personal history of malignant neoplasm of breast; Z92.21 Personal history of antineoplastic chemotherapy; Z92.3 Personal history of irradiation; E11.40 Type 2 diabetes mellitus with diabetic neuropathy, unspecified; M54.30 Sciatica, unspecified side; N32.81 Overactive bladder; F40.00 Agoraphobia, unspecified; Z79.899 Other long term (current) drug therapy; Z88.8 Allergy status to other drugs, medicaments and biological substances; J45.909 Unspecified asthma, uncomplicated; E11.51 Type 2 diabetes mellitus with diabetic peripheral angiopathy without gangrene; K21.9 Gastro-esophageal reflux disease without esophagitis; Z79.4 Long term (current) use of insulin

== ENCOUNTER → 2023-10-13 | Outpatient (REF) | payer OTHER ==
[~2023-10-13] MED LIST changes: +ABIL1TAB11 PO; +ATOR80TA59 PO; +CLONI1TA PO; +FENT75DI29 TD; +FERR1TAB8 PO; +FLUTISP NARES; -KLON1TAB PO; +KLON1TAB13 PO; +MAGN400T33 PO; +TRUL0.5I SC; +WARF-22 PO; +WARF-60 PO
[2023-10-13 17:34] LABS: INR 2.2; PROTHROMBIN TIME 23.7 SECONDS (12.5-14.5)
== END ==
LOC: M LABDRAWP 16:53
PROVIDERS: ATTEND Physician Assistant Medical
DX: Z79.01 Long term (current) use of anticoagulants (principal)

== ENCOUNTER → 2023-11-04 | Outpatient (CLI) | payer OTHER ==
[~2023-11-04] MED LIST changes: +DIPH1TAB80 PO; -DIPH2.5T14 PO
[2023-11-04 18:05] LABS: INR 2.08; PROTHROMBIN TIME 22.7 SECONDS (12.5-14.5)
== END ==
LOC: M PLALAB 16:28
PROVIDERS: ATTEND Physician Assistant Medical
DX: Z79.01 Long term (current) use of anticoagulants (principal)

== ENCOUNTER → 2023-11-24 | Outpatient (CLI) | payer OTHER ==
[~2023-11-24] MED LIST changes: +DOXY-440 PO; -DOXY-444 PO
[2023-11-24 17:37] LABS: INR 2.47; PROTHROMBIN TIME 25.8 SECONDS (12.5-14.5)
== END ==
LOC: M PLALAB 16:25
PROVIDERS: ATTEND Physician Assistant Medical
DX: Z79.01 Long term (current) use of anticoagulants (principal)

== ENCOUNTER → 2023-12-17 | Outpatient (REF) | payer OTHER ==
[2023-12-17 17:43] LABS: INR 1.71; PROTHROMBIN TIME 19.5 SECONDS (12.5-14.5)
== END ==
LOC: M LABDRAWP 16:55
PROVIDERS: ATTEND Physician Assistant Medical
DX: Z79.01 Long term (current) use of anticoagulants (principal)

== ENCOUNTER → 2023-12-30 | Outpatient (CLI) | payer OTHER ==
[~2023-12-30] MED LIST changes: -AZEL0.055 NARES; +AZEL1SPR4 NARES
[2023-12-30 15:31] LABS: INR 2.24
== END ==
LOC: M PLALAB 13:54
PROVIDERS: ATTEND Physician Assistant Medical
DX: Z86.73 Personal history of transient ischemic attack (TIA), and cerebral infarction without residual deficits (principal)

== ENCOUNTER → 2024-01-13 | Outpatient (CLI) | payer OTHER ==
[2024-01-13 17:39] LABS: INR 2.42; PROTHROMBIN TIME 25.4 SECONDS (12.5-14.5)
== END ==
LOC: M PLALAB 16:14
PROVIDERS: ATTEND Physician Assistant Medical
DX: Z86.73 Personal history of transient ischemic attack (TIA), and cerebral infarction without residual deficits (principal)

== ENCOUNTER → 2024-02-10 | Outpatient (CLI) | payer OTHER ==
[2024-02-10 17:16] LABS: INR 1.73; PROTHROMBIN TIME 19.7 SECONDS (12.5-14.5)
== END ==
LOC: M PLALAB 16:05
PROVIDERS: ATTEND Physician Assistant Medical
DX: Z86.73 Personal history of transient ischemic attack (TIA), and cerebral infarction without residual deficits (principal)

== ENCOUNTER → 2024-03-15 | Outpatient (CLI) | payer OTHER ==
[2024-03-15 17:07] LABS: INR 2.12
== END ==
LOC: M PLALAB 16:11
PROVIDERS: ATTEND Physician Assistant Medical
DX: Z86.73 Personal history of transient ischemic attack (TIA), and cerebral infarction without residual deficits (principal)

== ENCOUNTER → 2024-05-04 | Outpatient (CLI) | payer OTHER ==
[~2024-05-04] MED LIST changes: +NAPR-1405 PO; -NAPR500T6 PO
[2024-05-04 15:22] LABS: INR 1.94; PROTHROMBIN TIME 21.5 SECONDS (12.5-14.5)
== END ==
LOC: M PLALAB 14:11
PROVIDERS: ATTEND Physician Assistant Medical
DX: Z86.73 Personal history of transient ischemic attack (TIA), and cerebral infarction without residual deficits (principal)

== ENCOUNTER → 2024-05-24 | Outpatient (CLI) | payer OTHER ==
[2024-05-24 15:10] LABS: INR 1.58
== END ==
LOC: M PLALAB 11:42
PROVIDERS: ATTEND Physician Assistant Medical
DX: Z51.81 Encounter for therapeutic drug level monitoring (principal); Z79.01 Long term (current) use of anticoagulants

== ENCOUNTER → 2024-06-14 | Outpatient (CLI) | payer OTHER ==
[2024-06-14 17:32] LABS: INR 2.51; PROTHROMBIN TIME 27.1 SECONDS (12.5-14.5)
== END ==
LOC: M PLALAB 16:23
PROVIDERS: ATTEND Physician Assistant Medical
DX: Z79.01 Long term (current) use of anticoagulants (principal)

== ENCOUNTER → 2024-06-28 | Outpatient (CLI) | payer OTHER ==
[2024-06-28 15:16] LABS: INR 3.08; PROTHROMBIN TIME 31.6 SECONDS (12.5-14.5)
== END ==
LOC: M PLALAB 13:37
PROVIDERS: ATTEND Physician Assistant Medical
DX: Z79.01 Long term (current) use of anticoagulants (principal)

== ENCOUNTER → 2024-07-22 | Outpatient (CLI) | payer OTHER ==
[2024-07-22 17:20] LABS: INR 3.19; PROTHROMBIN TIME 32.5 SECONDS (12.5-14.5)
== END ==
LOC: M PLALAB 16:06
PROVIDERS: ATTEND Physician Assistant Medical
DX: Z79.01 Long term (current) use of anticoagulants (principal)

== ENCOUNTER → 2024-08-12 | Outpatient (CLI) | payer OTHER ==
[2024-08-12 17:09] LABS: INR 3.42; PROTHROMBIN TIME 34.3 SECONDS (12.5-14.5)
== END ==
LOC: M PLALAB 16:11
PROVIDERS: ATTEND Physician Assistant Medical
DX: Z79.01 Long term (current) use of anticoagulants (principal)

== ENCOUNTER → 2024-08-20 | Outpatient (CLI) | payer OTHER ==
[2024-08-20 17:03] LABS: INR 3.07; PROTHROMBIN TIME 31.6 SECONDS (12.5-14.5)
== END ==
LOC: M PLALAB 15:54
PROVIDERS: ATTEND Physician Assistant Medical
DX: Z79.01 Long term (current) use of anticoagulants (principal)

== ENCOUNTER → 2024-09-21 | Outpatient (CLI) | payer OTHER ==
[~2024-09-21] MED LIST changes: +ARIP1TAB6 PO; +DULA4.5P; +INSU100I59 SQ
[2024-09-21 17:16] LABS: INR 3.06; PROTHROMBIN TIME 31.5 SECONDS (12.5-14.5)
== END ==
LOC: M PLALAB 16:04
PROVIDERS: ATTEND Physician Assistant Medical
DX: Z79.01 Long term (current) use of anticoagulants (principal)

== ENCOUNTER → 2024-10-06 | Outpatient (CLI) | payer OTHER ==
[2024-10-06 17:03] LABS: INR 2.75; PROTHROMBIN TIME 29.1 SECONDS (12.5-14.5)
== END ==
LOC: M PLALAB 16:04
PROVIDERS: ATTEND Physician Assistant Medical
DX: Z51.81 Encounter for therapeutic drug level monitoring (principal); Z79.01 Long term (current) use of anticoagulants

== ENCOUNTER → 2024-11-01 | Outpatient (CLI) | payer OTHER ==
[2024-11-01 15:12] LABS: INR 3.05; PROTHROMBIN TIME 31.4 SECONDS (12.5-14.5)
== END ==
LOC: M PLALAB 14:20
PROVIDERS: ATTEND Physician Assistant Medical
DX: Z51.81 Encounter for therapeutic drug level monitoring (principal); Z79.01 Long term (current) use of anticoagulants

== ENCOUNTER → 2024-11-19 | Outpatient (CLI) | payer OTHER ==
[~2024-11-19] MED LIST changes: -AMBI5TAB PO; +ZOLP-532 PO
[2024-11-19 17:07] LABS: INR 3.04; PROTHROMBIN TIME 31.3 SECONDS (12.5-14.5)
== END ==
LOC: M PLALAB 15:13
PROVIDERS: ATTEND Physician Assistant Medical
DX: Z79.01 Long term (current) use of anticoagulants (principal)

== ENCOUNTER 2024-12-03 10:43 | Day surgery (SDC) | payer OTHER ==
[~2024-12-03] VITALS: Ht 165.1 cm; Wt 113.9 kg
[~2024-12-03 10:43] MED LIST changes: +LIDO1ADH93 TD; -LIDO5DIS41 TD; +SEMA0.257
[2024-12-03] MEDS ORDERED: GLUCAGON INJ 1MG VIAL SC PRN (11:10)
[2024-12-03] MEDS ORDERED: GLUCOSE 4 GM CHEW PO PRN (11:10)
[2024-12-03] MEDS ORDERED: DEXTROSE 50% 50ML SYRINGE IV PRN (11:10)
[2024-12-03] MEDS ORDERED: INSULIN LISPRO (NovoLOG) PER UNIT SC PRN (11:10)
[2024-12-03] MEDS ORDERED: PERCOCET 5MG/325MG TAB PO ONE (11:30)
[2024-12-03] MEDS ORDERED: propofoL 200 MG/20 ML VIAL As Ordered ONE (12:09)
[2024-12-03] MEDS ORDERED: LIDOCAINE 2% 100MG/5ML SDV (FOR ANES.) As Ordered ONE (12:09)
[2024-12-03 12:25] VITALS: BP 133/62; O2SAT 94
== END 2024-12-03 12:35 | disposition home or self-care (01) ==
LOC: M OPP 10:43
PROVIDERS: ATTEND Surgery
DX: Z12.11 Encounter for screening for malignant neoplasm of colon (principal); D12.5 Benign neoplasm of sigmoid colon; Z86.73 Personal history of transient ischemic attack (TIA), and cerebral infarction without residual deficits; Z88.8 Allergy status to other drugs, medicaments and biological substances; Z79.51 Long term (current) use of inhaled steroids; Z79.84 Long term (current) use of oral hypoglycemic drugs; Z79.891 Long term (current) use of opiate analgesic; Z79.85 Long-term (current) use of injectable non-insulin antidiabetic drugs; Z79.02 Long term (current) use of antithrombotics/antiplatelets; Z79.01 Long term (current) use of anticoagulants; Z79.899 Other long term (current) drug therapy

== ENCOUNTER → 2025-01-20 | Outpatient (CLI) | payer OTHER ==
[2025-01-20 15:16] LABS: INR 3.13
== END ==
LOC: M PLALAB 14:21
PROVIDERS: ATTEND Physician Assistant Medical
DX: Z79.01 Long term (current) use of anticoagulants (principal)

== ENCOUNTER → 2025-01-25 | Outpatient (REF) | payer OTHER ==
[2025-01-25 18:12] LABS: APPEARANCE, URINE HAZY (CLEAR); BACTERIA, URINE AUTO 1+ (NEGATIVE); BILIRUBIN, URINE AUTO NEGATIVE (NEGATIVE); BLOOD, URINE BLOOD NEGATIVE (NEGATIVE); GLUCOSE, URINE (UA) AUTO 3+ mg/dL (NEGATIVE); KETONE, URINE AUTO TRACE mg/dL (NEGATIVE); LEUKOCYTE ESTERASE, URINE AUTO 2+ (NEGATIVE); MUCUS, URINE SMALL (NEGATIVE); NITRITE, URINE AUTO NEGATIVE (NEGATIVE); PROTEIN, URINE AUTO 1+ mg/dL (NEGATIVE); RBC, URINE AUTO 7 /HPF (0-3); SPECIFIC GRAVITY URINE AUTO 1.030 (1.002-1.035); SQUAMOUS EPITHELIAL CELL UR AU 4 /HPF (0-6); UROBILINOGEN, URINE AUTO 0.2 mg/dL (0.0-2.0); WBC, URINE AUTO 13 /HPF (0-3)
== END ==
LOC: M SMT 17:20
PROVIDERS: ATTEND Physician Assistant
DX: R31.21 Asymptomatic microscopic hematuria (principal)

== ENCOUNTER → 2025-02-17 | Outpatient (REF) | payer OTHER ==
[2025-02-17 17:24] LABS: INR 2.94
== END ==
LOC: M LABDRAWP 16:41
PROVIDERS: ATTEND Physician Assistant Medical
DX: Z79.01 Long term (current) use of anticoagulants (principal)

== ENCOUNTER → 2025-03-24 | Outpatient (CLI) | payer OTHER ==
[2025-03-24 17:53] LABS: INR 3.17
== END ==
LOC: M PLALAB 16:40
PROVIDERS: ATTEND Physician Assistant Medical
DX: Z79.01 Long term (current) use of anticoagulants (principal)

== ENCOUNTER → 2025-04-15 | Outpatient (CLI) | payer OTHER ==
[~2025-04-15] MED LIST changes: +ZOLP10TA11 PO; -ZOLP10TA2 PO
[2025-04-15 18:41] LABS: PLATELET COUNT, AUTOMATED 662 10^3/uL (150-450)
[2025-04-15 19:06] LABS: INR 3.07
[2025-04-15 19:11] LABS: ALT/SGPT 24 U/L (7.0-40); AST/SGOT 34 U/L (<34); CALCIUM LEVEL 9.1 MG/DL (8.3-10.6); CARBON DIOXIDE LEVEL 29 MMOL/L (20-31); CHLORIDE LEVEL 101 MMOL/L (98-107); CHOLESTEROL LEVEL 97 MG/DL (<200); CHOLESTEROL RISK RATIO 2.99 (<5); CREATININE FOR GFR 0.54 MG/DL (0.55-1.30); GLOMERULAR FILTRATION RATE > 90.0 (>45); LDL CHOLESTEROL 41.2 MG/DL (<100); NON-HDL-C 64.6 MG/DL; POTASSIUM SERUM 4.1 MMOL/L (3.5-5.1); SODIUM LEVEL 139 MMOL/L (136-145); TRIGLYCERIDES LEVEL 117 MG/DL (<150)
[2025-04-15 19:13] LABS: FREE T4 1.10 NG/DL (0.89-1.76)
[2025-04-15 19:23] LABS: ESTIMATED AVERAGE GLUCOSE 189.0 MG/DL (60-110)
== END ==
LOC: M PLALAB 16:11
PROVIDERS: ATTEND Physician Assistant Medical
DX: Z79.01 Long term (current) use of anticoagulants (principal); R63.4 Abnormal weight loss; I10 Essential (primary) hypertension; E11.9 Type 2 diabetes mellitus without complications; E78.5 Hyperlipidemia, unspecified

== ENCOUNTER → 2025-05-02 | Outpatient (CLI) | payer OTHER ==
[2025-05-02 17:13] LABS: INR 2.28
== END ==
LOC: M PLALAB 14:31
PROVIDERS: ATTEND Physician Assistant Medical
DX: Z51.81 Encounter for therapeutic drug level monitoring (principal); Z79.01 Long term (current) use of anticoagulants

== ENCOUNTER → 2025-05-02 | Outpatient (REF) | payer OTHER ==
[2025-05-03 13:51] LABS: APPEARANCE, URINE TURBID (CLEAR); BACTERIA, URINE AUTO NEGATIVE (NEGATIVE); BILIRUBIN, URINE AUTO NEGATIVE (NEGATIVE); BLOOD, URINE BLOOD NEGATIVE (NEGATIVE); GLUCOSE, URINE (UA) AUTO NEGATIVE (NEGATIVE); KETONE, URINE AUTO NEGATIVE (NEGATIVE); LEUKOCYTE ESTERASE, URINE AUTO 2+ (NEGATIVE); NITRITE, URINE AUTO NEGATIVE (NEGATIVE); PROTEIN, URINE AUTO 2+ mg/dL (NEGATIVE); RBC, URINE AUTO 105 /HPF (0-3); SPECIFIC GRAVITY URINE AUTO 1.021 (1.002-1.035); SQUAMOUS EPITHELIAL CELL UR AU 4 /HPF (0-6); UROBILINOGEN, URINE AUTO 4.0 mg/dL (0.0-2.0); WBC, URINE AUTO TNTC /HPF (0-3); YEAST LIKE CELL URINE AUTO LARGE
== END ==
LOC: M SMT 13:09
PROVIDERS: ATTEND Urology
DX: R39.9 Unspecified symptoms and signs involving the genitourinary system (principal)

== ENCOUNTER → 2025-05-11 | Outpatient (REF) | payer OTHER ==
[2025-05-11 18:58] LABS: APPEARANCE, URINE MANUAL HAZY (CLEAR); BILIRUBIN, URINE MANUAL OBSCURED (NEGATIVE); BLOOD URINE MANUAL OBSCURED (NEGATIVE); COLOR, URINE MANUAL AMBER (YELLOW); GLUCOSE, URINE (UA) MANUAL OBSCURED mg/dL (NEGATIVE); KETONE, URINE MANUAL OBSCURED mg/dL (NEGATIVE); LEUKOCYTE ESTERASE, URINE MAN OBSCURED (NEGATIVE); NITRITE, URINE MANUAL OBSCURED (NEGATIVE); PH,URINE MAN OBSCURED UNITS (5.0 - 7.0); PROTEIN, URINE MANUAL OBSCURED mg/dL (NEGATIVE); SPECIFIC GRAVITY,URINE MANUAL 1.022 (1.002-1.035); UROBILINOGEN, URINE MANUAL OBSCURED mg/dl (NORMAL)
[2025-05-11 19:55] LABS: WBC, URINE TNTC /hpf (0-3)
[2025-05-11 20:01] LABS: BACTERIA, URINE NONE SEEN; MUCUS, URINE LARGE AMOUNT (NEGATIVE); SQUAMOUS EPITHELIAL CELL URINE LARGE AMOUNT /hpf (SMALL AMT); TRANSITIONAL EPI CELLS, URINE SMALL AMOUNT /hpf; YEAST, URINE LARGE AMOUNT
[2025-05-11 20:02] LABS: HYALINE CAST, URINE NONE SEEN /lpf (0-1)
== END ==
LOC: M SMT 17:00
PROVIDERS: ATTEND Urology
DX: R30.0 Dysuria (principal)

== ENCOUNTER 2025-05-26 17:18 | Emergency (ER) | payer OTHER ==
[~2025-05-26] VITALS: Ht 167.6 cm; Wt 113.6 kg
[2025-05-26 17:21] VITALS: BP 138/68; TEMP 99; O2SAT 95
[2025-05-26] MEDS ORDERED: ROLLMIS8 XX (18:33)
== END 2025-05-26 18:43 | disposition home or self-care (01) ==
LOC: M ED 17:18
DX: M66.0 Rupture of popliteal cyst (principal); E11.9 Type 2 diabetes mellitus without complications; I10 Essential (primary) hypertension; Z86.79 Personal history of other diseases of the circulatory system; Z88.8 Allergy status to other drugs, medicaments and biological substances; Z79.52 Long term (current) use of systemic steroids; Z79.899 Other long term (current) drug therapy; Z79.02 Long term (current) use of antithrombotics/antiplatelets; Z79.4 Long term (current) use of insulin

== ENCOUNTER → 2025-06-13 | Outpatient (CLI) | payer OTHER ==
[~2025-06-13] MED LIST changes: +ROLLMIS8 XX
[2025-06-13 18:32] LABS: INR 3.63
== END ==
LOC: M PLALAB 16:13
PROVIDERS: ATTEND Physician Assistant Medical
DX: Z51.81 Encounter for therapeutic drug level monitoring (principal); Z79.01 Long term (current) use of anticoagulants

== ENCOUNTER → 2025-06-27 | Outpatient (CLI) | payer OTHER ==
[2025-06-27 17:34] LABS: INR 5.79
== END ==
LOC: M PLALAB 16:08
PROVIDERS: ATTEND Physician Assistant Medical
DX: Z51.81 Encounter for therapeutic drug level monitoring (principal); Z79.01 Long term (current) use of anticoagulants

== ENCOUNTER → 2025-06-28 | Outpatient (REF) | payer OTHER ==
[2025-06-28 18:34] LABS: IRON (FE) 17.0 UG/DL (50-170); PERCENT SATURATION 5.0 % (13.2-45.0)
[2025-06-28 18:36] LABS: VITAMIN B12 LEVEL 225.0 PG/ML (211-911)
== END ==
LOC: M LAB REF 17:28
PROVIDERS: ATTEND Student in an Organized Health Care Education/Training Program
DX: Z79.01 Long term (current) use of anticoagulants (principal); D63.1 Anemia in chronic kidney disease

== ENCOUNTER → 2025-06-28 | Outpatient (CLI) | payer OTHER ==
[2025-06-28 17:06] LABS: INR 4.68
== END ==
LOC: M PLALAB 14:42
PROVIDERS: ATTEND Physician Assistant Medical
DX: Z79.01 Long term (current) use of anticoagulants (principal)

== ENCOUNTER → 2025-07-06 | Outpatient (REF) | payer OTHER ==
[2025-07-06 17:10] LABS: INR 1.99
== END ==
LOC: M LABDRAWP 16:44
PROVIDERS: ATTEND Physician Assistant Medical
DX: Z79.01 Long term (current) use of anticoagulants (principal)

== ENCOUNTER → 2025-07-08 | Outpatient (CLI) | payer OTHER ==
[~2025-07-08] MED LIST changes: +ISOVUE-370 76% 100 ML VIAL ONE
== END ==
LOC: M PLAIMG 10:30
PROVIDERS: ATTEND Student in an Organized Health Care Education/Training Program
DX: R31.9 Hematuria, unspecified (principal)